=== PATIENT | female | born 1930 | race Caucasian/White ===

== ENCOUNTER 2018-12-04 09:24 | Inpatient (IN) ==
--- NOTE | 2018-12-04 10:46 | PROVIDER DOCUMENTATION ---
HPI-General Adult - General Chief Complaint: Return/Recheck Stated Complaint: WEAKNESS Time Seen by Provider: 12/04/18 10:20 Source: patient Allergies/Adverse Reactions: Patient Allergies Allergy/AdvReac Type Severity Reaction Status Date / Time codeine Allergy RASH Verified 11/30/18 20:19 Penicillins Allergy RASH Verified 11/30/18 20:19 Sulfa (Sulfonamide AdvReac Unknown Verified 11/30/18 20:19 Antibiotics) Home Medications: Home Medication List Medication Instructions Recorded Confirmed Last Taken Type Acetaminophen [Tylenol] 325 mg PO PRN PRN 12/02/17 02/17/18 Unknown History Aspirin 81 mg PO DAILY 12/02/17 04/08/18 04/08/18 History Cholecalciferol (Vitamin D3) 2,000 unit PO DAILY 12/02/17 04/08/18 04/08/18 History [Vitamin D3] Donepezil HCl [Aricept] 10 mg PO DAILY 12/02/17 02/17/18 Unknown History Insulin Glargine [Lantus] 25 unit SQ AC + HS 12/02/17 04/08/18 04/08/18 History Lactobacillus Combo No.11 1 each PO DAILY 12/02/17 04/08/18 04/08/18 History [Probiotic] Levothyroxine Sodium [Tirosint] 112 mcg PO .0500 DAILY 12/02/17 04/08/18 04/08/18 History Linaclotide [Linzess] 72 mcg PO DAILY 12/02/17 04/08/18 04/08/18 History Lisinopril 10 mg PO DAILY 12/02/17 04/08/18 04/08/18 History Pantoprazole Sodium 40 mg PO DAILY@0600 12/02/17 04/08/18 04/08/18 History ATORVAstatin [Lipitor] 10 mg PO HS 02/17/18 04/08/18 04/08/18 History Ferrous Sulfate 325 mg PO DAILY 02/17/18 04/08/18 04/08/18 History Lorazepam 0.5 mg PO . DIRECTED TID 02/17/18 04/08/18 04/08/18 History Ropinirole HCl 1 mg PO HS 02/17/18 04/08/18 04/08/18 History Lactulose [Generlac] 10 gm PO BID 09/04/08/18 04/08/18 History Amitriptyline [Elavil] 10 mg PO HS #15 tab 02/19/18 Unknown Rx Promethazine [Phenergan Liquid] 12.5 mg PO Q6H PRN PRN #1 bottle 03/15/18 04/08/18 04/08/18 Rx Clonidine HCl 0.1 mg PO TID PRN #60 tablet 03/23/18 04/08/18 04/08/18 Rx Estrogen Vag Cream [Premarin Vag 1 applicatn ORDERED EVERY OTHER 04/08/18 04/08/18 Unknown History Cream] DAY Polyethylene Glycol [Polyox 17 gm PO BID #60 dose 04/12/18 Unknown Rx [id number]] Levofloxacin [Levaquin] 500 mg PO DAILY #7 tab 12/01/18 Unknown Rx Promethazine [Phenergan] 25 mg PO Q6H PRN PRN #14 tab 12/01/18 Unknown Rx - History of Present Illness -Gen Adult Nature of Presenting Problems: Pt. is 88 yof that presents with c/o weakness, swelling in her feet and reports she was seen recently and treated for a UTI. Pt. reports some SOB but denies any CP. Pt. reports she went to her PCP and was told to come to the ED. She denies any other complaint. Location of Pain/Injury: reports: generalized. denies: none, head, face, mouth, neck, chest, upper extremity, hand(s), abdomen, back, pelvis, genitalia, lower extremity, feet, upper body, lower body, other Pain Radiation: reports: no radiation. denies: arm(s), back, buttocks, chest, epigastric, feet, groin, jaw, flank (L), legs (lower), LLQ, LUQ, neck, perium bilical, flank (R), RLQ, RUQ, shoulder(s), scapula, scrotal, sternal notch, suprapubic, legs (upper), urethral, vaginal, other Quality of Pain: reports: aching. denies: burning, cramping, pressure, sharp, tightness Severity: reports: moderate. denies: mild, severe Onset/Duration: reports: gradual, 3 days ago Timing: reports: still present. denies: improving, gone now, constant, getting worse Context/Activities at Onset: reports: none. denies: light activity, moderate activity, vigorous activity, recent emotional stress, recent physical stress, recent trauma history, possible bad food, cold exposure, eating, out of country travel, rest, sleep, sexual activity, other Modifying Factors: improves with: nothing Associated Symptoms: reports: malaise, shortness of breath, weakness, other (edema). denies: denies symptoms, anxiety, arm pain, back/neck pain, chest joann n, constipation, cough, diaphoresis, diarrhea, dizziness, EENT symptoms, fatigue, fever/chills, genitourinary problems, headaches, heartburn, joint pain, loss of appetite, muscle aches, sinus congestion/drainage, nausea, rash, seizure, sensory/motor loss, pain with inspiration, swelling/mass in abdomen, syncope, vomiting, trouble walking Similar Symptoms Previously?: Yes Recently seen or treated by another doctor?: Yes Review of Systems - Adult - REVIEW OF SYSTEMS - ADULT Constitutional: reports: no symptoms reported Eyes: reports: no symptoms reported Ears, Nose, Mouth & Throat: reports: no symptoms reported Cardiovascular: reports: see HPI, edema. denies: orthopnea, poor circulation, syncope Respiratory: reports: see HPI, shortness of breath. denies: cough, dyspnea on exertion, pleurisy, wheezing Gastrointestinal: reports: no symptoms reported Genitourinary: reports: see HPI, dysuria. denies: hesitency, urinary retention, urgency Musculoskeletal: reports: no symptoms reported Integumentary: reports: no symptoms reported Neurological: reports: no symptoms reported Psychiatric: reports: no symptoms reported Past History - Adult - PAST MEDICAL HISTORY-ADULT Review of Records: reports: Old Records Reviewed, Nursing Assessment Review, Medications Reviewed, Social history reviewed & non-contributory. Major Childhood Illnesses: reports: denies history Cardiovascular: reports: CHF, HTN Respiratory: reports: asthma, COPD Gastrointestinal: reports: GERD Obstetrical/Gynecological: reports: denies history Genitourinary: reports: kidney disease Musculoskeletal: reports: denies history Neurological: reports: dementia, TIA Psychiatric: reports: anxiety Endocrine/Immune: reports: Diabetes, thyroid disorder Other Conditions: reports: denies history - PRIOR SURGERIES/PROCEDURES Surgical/Procedure History: reports: hysterectomy, tonsillectomy, other (thyroidectomy, eye sx) - IMMUNIZATION STATUS Childhood Immunizations: See Nurse Assessment Flu Vaccine: See Nurse Assessment - FAMILY HISTORY Family History: reviewed, not pertinent - SOCIAL HISTORY Smoking: denies Physical Exam-General - PHYSICAL EXAM-ADULT Initial Vital Signs Reviewed: Yes - CONSTITUTIONAL General Appearance: alert, no apparent distress, obese. negative: anxious, obtunded, combative - EYES Eyes: PERRL/EOMI, pink conjunctivae. negative: conjuctival exudate, scleral icterus, subconjunctival hemorrhage - HEAD, EARS, NOSE, MOUTH & THROAT HENMT: normocephalic/atraumatic, moist mucous membranes. negative: angioedema, frontal tenderness, maxillary tenderness - NECK Neck: non-tender, full range of motion, supple, normal inspection. negative: lymphadenopathy, trachial deviation, thyromegaly - RESPIRATORY Respiratory: lungs clear, normal breath sounds - CARDIOVASCULAR Cardiovascular: normal peripheral pulses, regular rate, rhythm - GASTROINTESTINAL (ABDOMEN) Abdominal Exam: normal bowel sounds, non tender, soft - LYMPHATIC Lymphatic: no adenopathy. negative: axilla node tender, cervical node tenderness - MUSCULOSKELETAL Back Exam: normal inspection, no CVA tenderness, no vertebral tenderness Extremity: swelling. negative: deformity, erythema, inflammation, tenderness Peripheral Pulses: radial (R): 2+, radial (L): 2+ - SKIN Integumentary: normal color, normal turgor, warm/dry - NEUROLOGIC Neurologic: grossly normal, no motor/sensory deficits - PSYCHIATRIC Psych/Mental Status: normal mood/affect, normal thought content, normal thought process, oriented x 3. negative: anxious, paranoid, tearful Progress - PLAN OF CARE/RESULTS Progress/Plan/Lab Results: Vital Signs - 8 hr 12/04/18 09:31 12/04/18 09:32 12/04/18 09:36 Temperature 97.8 F Pulse Rate 80 82 Respiratory Rate 18 18 Blood Pressure 169/79 168/76 O2 Sat by Pulse Oximetry 97 97 98 12/04/18 09:40 Temperature Pulse Rate Respiratory Rate Blood Pressure O2 Sat by Pulse Oximetry 97 Orders Category Date Time Status Core Temperature ORDERED Care 12/04/18 10:42 Ordered Saline Loc NOW Care 12/04/18 10:40 Ordered CHEST-PORTABLE [RAD] Stat Exams 12/04/18 10:41 Ordered BLOOD CULTURE [BLDCUL] Stat Lab 12/04/18 10:42 Uncollected CBC WITH ELECTRONIC DIFF [HEME] Stat Lab 12/04/18 10:40 Uncollected CK PROFILE [SP CHEM] Stat Lab 12/04/18 10:40 Uncollected COMPREHENSIVE METABOLIC PANEL [CHEM] Stat Lab 12/04/18 10:40 Uncollected LACTATE, PLASMA [CHEM] Stat Lab 12/04/18 10:42 Uncollected PRO B-NATRIURETIC PEPTIDE Stat Lab 12/04/18 10:41 Ordered TROPONIN T Stat Lab 12/04/18 10:41 Uncollected TSH Stat Lab 12/04/18 10:41 Uncollected URINALYSIS W/POSS RFLX CULT [URINALYSIS] Stat Lab 12/04/18 10:41 Uncollected EKG [EKG] Stat Ther 12/04/18 10:40 Ordered Result Diagrams: 12/04/18 10:55 12/04/18 10:55 - XRAY 1 XRAY Study: Chest [facility] - [address], [place] [address] [facility] - [address] [place] [address] Department of Imaging Patient: MONIKA HARRIS Date: 12/04/18MR#: [id number] : 1930ADM [id number] Age/Sex: 88/FRoom/Bed: Loc: ED Ordering Physician: Rudy Dickinson Family Physician: Elliot Morin MD Reason for Procedure: edema Signed EXAM: CHEST-PORTABLE HISTORY: edema TECHNIQUE: Chest single view COMPARISON: 11/30/2018 FINDINGS: The lungs are well expanded. The heart is not enlarged. The vessels are mildly distended. There are no infiltrates. No effusion identified. IMPRESSION: Mild vascular distention Electronically signed by Chip Truong 12/04/2018 11:05 AM 12/04/18 1105 Interpreting Physician: Chip Truong MD Dictated Date/Time: 12/04/18 1104 cc: Rudy Dickinson; Elliot Morin MD) XRAY Interpretation: See note - CONSULTS/PCP/HOSPITALIST Notification #1 *Consult/PCP/Hospitalist*: Chanelle for Dr. Coyne Time Discussed: 11:58 Reason/Comments: Admission Consult Disposition: Will see in ED, Admit Departure - Departure Date of Disposition Decision: 12/04/18 Time of Disposition Decision: 11:58 DIAGNOSIS: Nausea, Weakness, Hypoglycemia, Elevated brain natriuretic peptide (BNP) level Edema Qualifiers: Edema type: unspecified Qualified Code(s): R60.9 - Edema, unspecified Disposition: ADMITTED INPATIENT 09 Certified Medical Emergency: Emergent Condition: Stable Referrals and Follow-Ups: Elliot Morin MD [Primary Care Provider] - - Critical Care Note This patient required my direct & personal management of CC.: No Attestation - Physician/ DAYANA Attestation Patient care was provided by Advanced Practice Provider:: Yes Advanced Practice Provider:: Rudy Dickinson Advanced Practice Provider documentation review:: The Mid-level provider documentation, treatment plan and medical decision making was reviewed by the physician who agrees with all treatment and medical decision making by the P. The physician spent face to face time with patient:: No Advanced Practice Provider documentation review:: Supervising physician onsite and consulted in the evaluation and care of this patient. The physician did not have a face to face encounter with the patient.
[2018-12-04 11:05] LABS: URINE SOURCE CLEAN CATCH
--- NOTE | 2018-12-04 11:07 | Diag Imaging Result Doc PS360 ---
EXAM: CHEST-PORTABLE HISTORY: edema TECHNIQUE: Chest single view COMPARISON: 11/30/2018 FINDINGS: The lungs are well expanded. The heart is not enlarged. The vessels are mildly distended. There are no infiltrates. No effusion identified. IMPRESSION: Mild vascular distention Electronically signed by Chip Truong 12/04/2018 11:05 AM
[2018-12-04 11:10] LABS: BASO# 0.04 X1000 (0.0-0.2); BASO% 0.5 % (0.0-0.8); EOS# 0.28 X1000 (0.0-0.7); EOS% 3.5 % (0.0-10.0); HEMATOCRIT 32.7 % (37.0-47.0); IMM GRAN# 0.03 X1000 (0.0-0.04); IMM GRAN% 0.4 % (0.0-0.5); LYMPH# 3.39 X1000 (1.2-3.4); LYMPH% 42.1 % (20.5-51.1); MCH 29.3 PG (27-31); MCHC 33.6 g/dL (33-37); MONO# 0.78 X1000 (0.11-0.59); MONO% 9.7 % (1.7-9.3); MPV 8.7 FL (7.4-10.4); NEUT# 3.54 X1000 (1.4-6.5); NEUT% 43.8 % (42.2-75.2); PLT 270 X1000 (130-400); RBC 3.76 XMIL (4.2-5.4); RDW 14.3 % (11.5-14.5); WBC 8.06 X1000 (4.8-10.8)
[2018-12-04 11:15] LABS: BILIRUBIN URINE NEGATIVE (NEGATIVE); BLOOD URINE NEGATIVE (NEGATIVE); COLOR STRAW; GLUCOSE URINE NEGATIVE (NEGATIVE); KETONE URINE NEGATIVE (NEGATIVE); LEUKOCYTES URINE NEGATIVE (NEGATIVE); NITRITE URINE NEGATIVE (NEGATIVE); PH URINE 5.5; PROTEIN URINE 50 mg/dL (NEGATIVE); SP GRAVITY URINE 1.005; TURBIDITY URINE CLEAR (CLEAR); UROBILINOGEN URINE NORMAL (NORMAL)
[2018-12-04 11:17] LABS: UR EPITHELIAL CELLS <10 /HPF (<10); URINE BACTERIA NEGATIVE /HPF; URINE RBC <10 /HPF (<10); URINE WBC <10 /HPF (<10)
[2018-12-04 11:38] LABS: ALB/GLOB RATIO 1.2; ALBUMIN 3.5 g/dL (3.5-5.0); CALCIUM 8.9 mg/dL (8.8-10.2); CREATININE 1.5 mg/dL (0.5-0.9); POTASSIUM 4.4 mmol/L (3.5-5.1); TOTAL BILIRUBIN 0.26 mg/dL (0.20-1.00); TOTAL PROTEIN 6.4 g/dL (6.3-8.3)
--- NOTE | 2018-12-04 11:53 | EKG Report ---
Test Performed on : 12/04/2018 11:05:37 AM Test Reason : sob Blood Pressure : / mmHG Vent. Rate : 080 BPM Atrial Rate : 080 BPM P-R Int : 138 ms QRS Dur : 078 ms QT Int : 396 ms P-R-T Axes : 047 -09 036 degrees QTc Int : 456 ms Normal sinus rhythm. Normal ECG When compared with ECG of 30-NOV-2018 22:50, (Unconfirmed) premature atrial complexes. are no longer present Unconfirmed Result
[2018-12-04] MEDS ORDERED: D50W SYRINGE IV ONE (11:55)
--- NOTE | 2018-12-04 13:09 | ED EKG INTERP ---
This chart was entered by Kendy Galvez Scribe, acting as scribe for Sina Ryan MD. EKG Interpretation - EKG Time of EKG reading by physician:: 11:05 EKG Read and Signed by:: Sina Ryan EKG Interpretation (*Must complete 3 of following elements*): Normal Rate: 80 Rhythm: normal sinus rhythm Hubbard: normal QRS: normal AL Interval: normal ST Wave: normal Comments: normal ECG Attestation - Physician/ DAYANA Attestation Patient care was provided by Advanced Practice Provider:: Yes Advanced Practice Provider:: Rudy Dickinson Advanced Practice Provider documentation review:: The Mid-level provider documentation, treatment plan and medical decision making was reviewed by the physician who agrees with all treatment and medical decision making by the MLP. The physician spent face to face time with patient:: No Advanced Practice Provider documentation review:: Supervising physician onsite and consulted in the evaluation and care of this patient. The physician did not have a face to face encounter with the patient. This chart was documented by the indicated scribe, (Kendy Galvez Scribe) and accurately reflects the services I performed and decisions made by Connor nance Donald C., MD, as attested by the provider's signature.
[2018-12-04 15:47] LABS: BASO# 0.03 X1000 (0.0-0.2); BASO% 0.4 % (0.0-0.8); EOS# 0.14 X1000 (0.0-0.7); HEMATOCRIT 31.3 % (37.0-47.0); HEMOGLOBIN 10.4 g/dL (12.0-16.0); IMM GRAN# 0.04 X1000 (0.0-0.04); IMM GRAN% 0.6 % (0.0-0.5); LYMPH# 2.08 X1000 (1.2-3.4); LYMPH% 30.2 % (20.5-51.1); MCH 29.1 PG (27-31); MCHC 33.2 g/dL (33-37); MCV 87.7 FL (81-99); MONO# 0.72 X1000 (0.11-0.59); MONO% 10.4 % (1.7-9.3); MPV 8.5 FL (7.4-10.4); NEUT# 3.88 X1000 (1.4-6.5); NEUT% 56.4 % (42.2-75.2); PLT 269 X1000 (130-400); RBC 3.57 XMIL (4.2-5.4); RDW 14.5 % (11.5-14.5); WBC 6.89 X1000 (4.8-10.8)
--- NOTE | 2018-12-04 16:05 | CARDIOLOGY CONSULTATION ---
DATE: 12/04/2018 Ms. Linda Resendiz is an 88-year-old lady, who comes with complaints of weakness, pedal edema. She is a patient of Dr. Morin and has got multiple medical problems. Of late, she has noticed increasing pedal edema for the last 3 to 4 months. She was on Norvasc and that was discontinued, given her pedal edema, and started on medications, hydralazine. She is also on clonidine. She complains of having had an episode of lower blood pressure at 103, and at that blood pressure, she did not feel well. However, this morning, blood pressure was in the 200s. She came to the emergency room. Was admitted. She denies any chest pain. She has shortness of breath. No orthopnea or paroxysmal nocturnal dyspnea. She has grade 2 dyspnea on exertion. However, exercise capacity is limited, and her edema has worsened. She has noticed some blisters in her lower extremities as well. There is no history of palpitations. Her home medications include aspirin 81 mg a day, Protonix mg a day, insulin as directed, levothyroxine 112 mcg per day, atorvastatin 10, ferrous sulfate 325, ropinirole, clonidine 0.1 mg p.o. t.i.d. p.r.n., levofloxacin 500, clonazepam p.r.n., hydralazine 50 t.i.d., melatonin, benzonatate, and losartan 100 mg a day. ALLERGIES: She is allergic to codeine, penicillin, sulfonamides. PHYSICAL EXAMINATION: On examination, blood pressure was 153/72 currently 179/76. Jugular venous pressure was normal. First and second heart sounds were heard. There was ejection systolic murmur.Respiratory System: Bibasilar inspiratory crepitations. Abdomen was soft, nontender. There was no guarding or rigidity. Bowel sounds were heard. Central nervous system: Alert and oriented, was moving all 4 extremities. Examination of extremities revealed pitting pedal edema to her shins bilaterally, and there were blisters also noted on the left leg. 2+ pitting pedal edema. DIAGNOSTIC STUDIES: Sodium 134, potassium 4.4, BUN 8, creatinine 1.5. Troponin negative. Chest x-ray: Vascular distention noted. Her CBC: WBC 8, hemoglobin 11, hematocrit 32, platelet count of 270. ASSESSMENT AND PLAN: Ms Linda Resendiz is an 88-year-old lady who has history of hypertension, diabetes, hypothyroidism, who has had pedal edema off and on for the last 3 to 4 months. It was thought to be secondary to Norvasc which she was taking that was discontinued a couple of weeks back. She is on hydralazine 50 mg 3 times a day. In addition, she has also clonidine on a p.r.n. basis. She has noted fluctuating blood pressures. In addition, she is on Cozaar. From a cardiac standpoint, first set of cardiac enzymes are negative. Her electrocardiogram revealed normal sinus rhythm. There were no ST-T changes to suggest ischemia. Left ventricular hypertrophy borderline noted. In addition she has ejection systolic murmur. 1. We will get an echocardiogram to assess for and rule out aortic stenosis and get an ejection fraction as well. 2. We will get carotid Dopplers. She has had episodes of dizziness as well. 3. As far as hypertensive medications are concerned, her Norvasc was recently discontinued. She is on Cozaar and hydralazine. We recommend continuing the same medications. 4. As far as pedal edema is concerned, she has bilateral pitting pedal edema. She has been started on Lasix. We would recommend continuing with the Lasix and follow her BMP. Further recommendations pending her echocardiogram. Thank for the consult. We will follow hospital course. cc: Ayan Smith MD
[2018-12-04] MEDS: LASIX IV SCH (16:06)
[2018-12-04] MEDS: HUMALOG SUBQ SCH ×2 (16:06→21:52)
[2018-12-04] MEDS: APRESOLINE PO SCH ×2 (16:07→21:52)
[2018-12-04 16:11] LABS: ALB/GLOB RATIO 1.2; ALBUMIN 3.1 g/dL (3.5-5.0); CALCIUM 8.7 mg/dL (8.8-10.2); CREATININE 1.3 mg/dL (0.5-0.9); MAGNESIUM 1.6 mg/dL (1.5-2.7); POTASSIUM 4.5 mmol/L (3.5-5.1); TOTAL BILIRUBIN 0.23 mg/dL (0.20-1.00); TOTAL PROTEIN 5.6 g/dL (6.3-8.3)
[2018-12-04] MEDS ORDERED: MAGNESIUM SULFATE 2 GM/S.W.I. 2 GM/50 ML IVPB IV ONE (16:16)
[2018-12-04 16:34] LABS: URINE SOURCE CATH
[2018-12-04 16:40] LABS: BILIRUBIN URINE NEGATIVE (NEGATIVE); BLOOD URINE NEGATIVE (NEGATIVE); COLOR STRAW; GLUCOSE URINE NEGATIVE (NEGATIVE); KETONE URINE NEGATIVE (NEGATIVE); LEUKOCYTES URINE TRACE (NEGATIVE); NITRITE URINE NEGATIVE (NEGATIVE); PROTEIN URINE 100 mg/dL (NEGATIVE); SP GRAVITY URINE 1.007; TURBIDITY URINE CLEAR (CLEAR); UROBILINOGEN URINE NORMAL (NORMAL)
[2018-12-04 16:42] LABS: UR EPITHELIAL CELLS <10 /HPF (<10); URINE BACTERIA NEGATIVE /HPF; URINE RBC <10 /HPF (<10); URINE WBC <10 /HPF (<10)
[2018-12-04] MEDS: LIPITOR PO SCH (21:51)
[2018-12-04] MEDS: KLONOPIN PO PRN (21:52)
[2018-12-04] MEDS: REQUIP PO SCH (21:52)
[2018-12-04] MEDS: MELATONIN PO SCH (21:52)
[2018-12-05] MEDS: LASIX IV SCH (02:48)
[2018-12-05] MEDS: PHENERGAN PO PRN (03:44)
--- NOTE | 2018-12-05 04:35 | HISTORY AND PHYSICAL ---
CHIEF COMPLAINT: Weakness, lower extremity edema. HISTORY OF PRESENT ILLNESS: This is an 88-year-old female with a prior history of hypertension, diabetes mellitus, gastroesophageal reflux disease, hypothyroid, chronic kidney disease. She presents to the emergency room complaining of generalized weakness and lower extremity edema over the past week. She states that she has had difficulty with pedal edema over the last 3 to 4 months which has been followed by her primary care physician, Dr. Morin. She was initially on Norvasc when this started, this was discontinued. Medications have been changed during these months. She did state that prior to the last few days that the lower extremity edema had been less and that it would disappear with elevation and recur after standing for long periods of time although during this last week it has persisted and she even has had some her fingers have started to swell. This morning she had systolic pressures in the 200s prompting her visit to the emergency room. She denied any chest pain or palpitations during this. She denied any orthopnea or PND. She did state that over the last 24 hours that she has had some blisters on her lower extremities and pain on standing. She stated she felt like her skin was stretching and pain on standing. She did state that "I feel like my skin is stretching." PAST MEDICAL HISTORY: 1. Asthma. 2. Diabetes mellitus. 3. Gastroesophageal reflux disease. 4. Hyperlipidemia. 5. Hypertension. 6. Chronic kidney disease. 7. Hypothyroidism 8. Transient ischemic attack. PAST SURGICAL HISTORY: Appendectomy, cataract removal, hysterectomy, tonsillectomy, goiter, corneal transplant. SOCIAL HISTORY: She denies alcohol, tobacco, or illicit drug use. ALLERGIES: Codeine and penicillin which cause a rash and sulfa with unknown reaction. HOME MEDICATIONS: A list will be obtained by the nursing staff and once verified we will review and restart as appropriate. REVIEW OF SYSTEMS: Discussed with patient with pertinent positives stated in HPI. She denied any syncope or dizziness, any palpitations, productive cough, any fevers or chills, any night sweats, recent weight loss or weight gain, nausea, vomiting, diarrhea, constipation, black or bloody vomitus or stools, any hematuria, dysuria, frequency, urgency. PHYSICAL EXAMINATION: GENERAL: This is an 88-year-old female who is lying on the stretcher in the emergency room in no distress. VITAL SIGNS: Blood pressure is 168/76 with a heart rate of 82, respirations are 18, temperature is 97.8 degrees with room air saturations 97%-99%. HEENT: Head is normocephalic, atraumatic. Mucous membranes are moist. NECK: Supple with trachea midline. She has no JVD. CARDIOVASCULAR: Regular rate and rhythm. S1, S2 appreciated. She does have a 1-2/6 systolic murmur. She has bilateral 2+ pitting edema that is just to about her knees. Calves are nontender bilateral. Peripheral pulses palpable x4 extremities. She does have some blisters noted on her inner left leg. PULMONARY: Breath sounds have noted bibasilar crackles. Chest rises and falls symmetrically with respiration. Chest wall is nontender to palpation. GASTROINTESTINAL: Abdomen is soft, nontender, nondistended with bowel sounds in all 4 quadrants. GENITOURINARY: She has no CVA or suprapubic tenderness. NEUROLOGIC: Alert and oriented times 3. SKIN: Warm and dry. LABORATORIES: WBC is 6.8 with hemoglobin 11, hematocrit 32.7, platelets of 27,000. Sodium is 134, potassium 4.4, BUN 8, creatinine 1.5 with a glucose of 64. ProBNP is 1602. Troponin was negative. TSH is 14. Urinalysis is essentially negative. Negative acetone. Urine cultures and blood cultures are pending. Chest x-ray reveals mild vascular distention. ASSESSMENT AND PLAN: 1. Lower extremity edema. Will order an echocardiogram and start diuretic therapy. 2. Hypothyroidism. Will restart synthroid therapy. 3. Diabetes mellitus type 2. Will start the patient on sliding scale insulin and a diabetic diet. 4. Hypertension. Restart home antihypertensive regimen. 5. Chronic constipation. Resume home laxative regimen. 6. Morbid obesity. Aware. 7. Acute kidney injury on chronic kidney disease. Will check urine studies and monitor the urine output closely. 8. Deconditioning. Will consult OT and PT. Dictated by JUAN Beckford for Yue Payne MD cc: JUAN Bekcford MD I performed a face to face encounter on the patient. I reviewed all labs and imaging on the patient. I agree with the H&P as dictated. [facility]
[2018-12-05 06:02] LABS: HEMATOCRIT 29.8 % (37.0-47.0); HEMOGLOBIN 9.8 g/dL (12.0-16.0); MCH 28.6 PG (27-31); MCHC 32.9 g/dL (33-37); MCV 86.9 FL (81-99); MPV 8.9 FL (7.4-10.4); RBC 3.43 XMIL (4.2-5.4); RDW 14.1 % (11.5-14.5); WBC 6.41 X1000 (4.8-10.8)
[2018-12-05 06:23] LABS: CALCIUM 8.9 mg/dL (8.8-10.2); CREATININE 1.7 mg/dL (0.5-0.9)
[2018-12-05] MEDS: PROTONIX PO SCH (06:32)
[2018-12-05] MEDS: SYNTHROID PO SCH (06:33)
[2018-12-05] MEDS: LOVENOX SUBQ SCH (06:33)
[2018-12-05] MEDS: HUMALOG SUBQ SCH ×4 (06:34→21:23)
[2018-12-05] MEDS ORDERED: LINZESS PO ONE (09:08)
--- NOTE | 2018-12-05 09:46 | ECHO REPORT ---
ORDER DATE: 12/04/2018 INTERPRETING PHYSICIAN: Phu Allan MD. REQUESTING PHYSICIAN: Yue Payne MD. CLINICAL INDICATIONS: Edema, swelling, dyspnea, CHF suspected. M-MODE MEASUREMENTS: Left ventricle end diastole: 4.6 cm. Left ventricle end systole: 2.9 cm. Posterior wall: 0.9 cm. Interventricular septum: 0.8 cm. Left atrium: 3.8 cm. Aortic diameter: 2.9 cm. SUMMARY OF 2-DIMENSIONAL IMAGIN. The left ventricular function is normal. Ejection fraction is estimated at 65% to 70%. There is no wall motion abnormality noted. 2. The aortic valve shows some sclerosis of the cusps without stenosis. No regurgitation. 3. Mitral annulus shows moderate calcification. Color flow mapping of mitral valve indicates mild degree of regurgitation. 4. The pulse wave Doppler of mitral inflow is normal. 6. Tissue Doppler of septal and lateral mitral annulus averages 4 cm. 7. There is impaired left ventricular relaxation. 8. The pulmonic valve looks normal. Color flow mapping unremarkable. 9. The tricuspid valve shows mild degree of regurgitation. 10.Pulmonary systolic pressure is somewhat difficult to assess because the jet of regurgitation is somewhat faint. Pulmonary pressure may be elevated at 38 mmHg. 11.There is no pericardial effusion, no mass, and no thrombus. 12.Right-sided chambers are distended. Clinical correlation is recommended. cc: MD Joselin Woodward CRNP
[2018-12-05] MEDS: FERROUS SULFATE PO SCH (11:20)
[2018-12-05] MEDS: ASPIRIN PO SCH (11:20)
[2018-12-05] MEDS: VITAMIN D PO SCH (11:20)
[2018-12-05] MEDS: APRESOLINE PO SCH ×3 (11:20→21:33)
[2018-12-05] MEDS: KLONOPIN PO PRN (11:20)
[2018-12-05] MEDS: ZYRTEC PO SCH (11:21)
[2018-12-05] MEDS: LACTULOSE PO SCH ×2 (12:20→21:24)
[2018-12-05] MEDS: MIRALAX PO ONE (12:20)
--- NOTE | 2018-12-05 20:34 | PROGRESS NOTE ---
DATE: 12/05/2018 SUBJECTIVE: The patient states that she feels a lot better. She feels like her legs are less swollen today. OBJECTIVE: Vital Signs: Temperature 97.6 degrees, blood pressure 154/58, heart rate 77, respirations 16, O2 saturation 97% on room air. General: This is an elderly female lying in bed in no acute distress. Heart: S1, S2 normal. Lungs: Clear to auscultation bilaterally. Abdomen: Positive bowel sounds. Soft, nontender, nondistended. Extremities: 2+ edema. Neurologic: The patient is alert and oriented x4. LABORATORY DATA: White blood cell count 6.4, hemoglobin 9.8, hematocrit 29, platelets 260,000. Sodium 135, potassium 4, chloride 103, CO2 22, BUN 14, creatinine 1.7, glucose 119. ASSESSMENT AND PLAN: 1. Acute diastolic congestive heart failure exacerbation. Continue with diuretic therapy and the current cardiac medications. 2. Hypothyroidism. Continue on Synthroid. 3. Chronic constipation. Continue on the current laxative regimen. 4. Hypertension. Continue on the current antihypertensive regimen. 5. Restless legs syndrome. Continue on Requip. 6. Deep vein thrombosis prophylaxis. Continue on Lovenox. 7. Will consult physical therapy. cc: Yue Payne MD
[2018-12-05] MEDS: REQUIP PO SCH (21:25)
[2018-12-05] MEDS: LIPITOR PO SCH (21:25)
[2018-12-05] MEDS: MELATONIN PO SCH (21:25)
[2018-12-05] MEDS: MIRALAX PO SCH (21:26)
[2018-12-05] MEDS: TYLENOL PO PRN (22:17)
[2018-12-06] MEDS: TYLENOL PO PRN ×2 (04:33→20:10)
[2018-12-06] MEDS: SYNTHROID PO SCH (04:34)
[2018-12-06] MEDS: LINZESS PO SCH ×4 (05:47→06:25)
[2018-12-06] MEDS: LOVENOX SUBQ SCH (05:48)
[2018-12-06] MEDS: PROTONIX PO SCH (05:48)
[2018-12-06] MEDS: KLONOPIN PO PRN (06:29)
[2018-12-06] MEDS: HUMALOG SUBQ SCH ×4 (06:51→21:33)
--- NOTE | 2018-12-06 07:18 | EKG Report ---
Test Performed on : 12/06/2018 06:50:38 AM Test Reason : Chest Pain Blood Pressure : / mmHG Vent. Rate : 073 BPM Atrial Rate : 073 BPM P-R Int : 152 ms QRS Dur : 082 ms QT Int : 392 ms P-R-T Axes : 050 -03 045 degrees QTc Int : 431 ms Normal sinus rhythm. Normal ECG When compared with ECG of 04-DEC-2018 11:05, (Unconfirmed) No significant change was found Confirmed by Felipe Pemberton MD ([id number]) on 12/08/2018 12:07:18 PM
[2018-12-06 07:40] LABS: HEMATOCRIT 29.2 % (37.0-47.0); HEMOGLOBIN 9.7 g/dL (12.0-16.0); MCH 29.7 PG (27-31); MCHC 33.2 g/dL (33-37); MCV 89.3 FL (81-99); RBC 3.27 XMIL (4.2-5.4); RDW 13.9 % (11.5-14.5); WBC 7.89 X1000 (4.8-10.8)
[2018-12-06 07:50] LABS: CALCIUM 8.4 mg/dL (8.8-10.2); CREATININE 1.8 mg/dL (0.5-0.9); POTASSIUM 4.5 mmol/L (3.5-5.1)
[2018-12-06] MEDS: VITAMIN D PO SCH (08:36)
[2018-12-06] MEDS: LACTULOSE PO SCH ×2 (08:36→20:08)
[2018-12-06] MEDS: ASPIRIN PO SCH (08:36)
[2018-12-06] MEDS: APRESOLINE PO SCH ×3 (08:37→20:10)
[2018-12-06] MEDS: FERROUS SULFATE PO SCH (08:37)
[2018-12-06] MEDS: MIRALAX PO SCH ×2 (08:37→20:08)
[2018-12-06] MEDS: ZYRTEC PO SCH (08:37)
[2018-12-06] MEDS ORDERED: LASIX PO SCH (09:00)
[2018-12-06] MEDS: PHENERGAN PO PRN (11:58)
[2018-12-06] MEDS: REQUIP PO SCH (20:09)
[2018-12-06] MEDS: LIPITOR PO SCH (20:10)
[2018-12-06] MEDS: MELATONIN PO SCH (20:10)
--- NOTE | 2018-12-06 22:17 | PROGRESS NOTE ---
DATE: 12/06/2018 SUBJECTIVE: The patient is resting comfortably. She complains of some neuropathy that is chronic. OBJECTIVE: Vital Signs: Temperature 98.4 degrees, blood pressure 167/70, heart rate 81, respirations 18, O2 saturation 97% on room air. General: This is a chronically ill-appearing elderly female lying in bed in no acute distress. Heart: S1, S2 normal. Lungs: Equal air entry bilaterally. No crackles. No rales. Abdomen: Positive bowel sounds. Soft, obese, nontender, nondistended. Extremities: 1+ edema bilaterally. Neurologic: The patient is alert and oriented x4. LABORATORY DATA: Hemoglobin 9.7, hematocrit 29, platelets 253,000, sodium 133, potassium 4.5, chloride 98, CO2 24, BUN 16, creatinine 1.8, glucose 182. ASSESSMENT AND PLAN: 1. Diastolic dysfunction with peripheral edema. Improved. Given the patient's renal insufficiency. We will hold the Lasix at this time. 2. Morbid obesity. The patient has been counseled about weight loss and proper diet. 3. Diabetes mellitus type 2. Continue on sliding scale insulin. 4. Chronic constipation. Continue on the current laxative regimen. 5. Hypothyroidism. Continue on Synthroid. 6. Restless legs syndrome. Continue on Requip. 7. Acute kidney injury on chronic kidney disease. This is likely diuretic related. The diuretic therapy has been discontinued. 8. Continue with physical therapy. cc: Yue Payne MD MTDPia
[2018-12-07] MEDS: PROTONIX PO SCH (05:10)
[2018-12-07] MEDS: LINZESS PO SCH ×4 (05:10→06:17)
[2018-12-07] MEDS: SYNTHROID PO SCH (05:10)
[2018-12-07] MEDS: LOVENOX SUBQ SCH (05:11)
[2018-12-07] MEDS: TYLENOL PO PRN ×2 (05:13→18:54)
[2018-12-07] MEDS: HUMALOG SUBQ SCH ×3 (06:35→21:35)
[2018-12-07 06:42] LABS: HEMATOCRIT 28.6 % (37.0-47.0); HEMOGLOBIN 9.6 g/dL (12.0-16.0); MCH 29.6 PG (27-31); MCHC 33.6 g/dL (33-37); MCV 88.3 FL (81-99); MPV 8.7 FL (7.4-10.4); RBC 3.24 XMIL (4.2-5.4); RDW 13.7 % (11.5-14.5); WBC 7.47 X1000 (4.8-10.8)
[2018-12-07 07:00] LABS: CALCIUM 8.5 mg/dL (8.8-10.2); CREATININE 1.5 mg/dL (0.5-0.9); POTASSIUM 3.9 mmol/L (3.5-5.1)
[2018-12-07] MEDS ORDERED: LOPRESSOR PO SCH (09:00)
[2018-12-07] MEDS: APRESOLINE PO SCH ×3 (09:05→21:34)
[2018-12-07] MEDS: LACTULOSE PO SCH ×3 (09:05→21:34)
[2018-12-07] MEDS: MIRALAX PO ONE (09:05)
[2018-12-07] MEDS: ZYRTEC PO SCH (09:06)
[2018-12-07] MEDS: VITAMIN D PO SCH (09:06)
[2018-12-07] MEDS: FERROUS SULFATE PO SCH (09:06)
[2018-12-07] MEDS: ASPIRIN PO SCH (09:06)
[2018-12-07] MEDS: MIRALAX PO SCH ×2 (09:07→21:30)
[2018-12-07] MEDS: KLONOPIN PO PRN ×2 (09:09→21:38)
[2018-12-07] MEDS ORDERED: FLEET MINERAL OIL ENEMA PR ONE (09:35)
--- NOTE | 2018-12-07 13:01 | Diag Imaging Result Doc PS360 ---
EXAM: ABDOMEN FLAT/UPRIGHT INDICATION: constipation TECHNIQUE: 4 views COMPARISON: 04/08/2018 FINDINGS: There is gas throughout the colon with only mild distention. There is an average amount of stool in the left colon. There is no obstructive bowel pattern. There is no evidence of large volume free abdominal gas. There is a small amount of gas in the lumen of the stomach. There is multilevel lumbar spondylosis. IMPRESSION: Nonspecific abdomen. Electronically signed by Raymundo Navarro 12/07/2018 12:58 PM
[2018-12-07] MEDS ORDERED: DULCOLAX PR ONE (18:03)
[2018-12-07] MEDS: PHENERGAN PO PRN (21:34)
[2018-12-07] MEDS: LIPITOR PO SCH (21:34)
[2018-12-07] MEDS: MELATONIN PO SCH (21:34)
[2018-12-07] MEDS: REQUIP PO SCH (21:34)
--- NOTE | 2018-12-07 22:00 | PROGRESS NOTE ---
DATE: 12/07/2018 SUBJECTIVE: The patient states that she still has not had a bowel movement since admission. Otherwise, she states that she feels better. OBJECTIVE: Vital signs: Temperature 98 degrees, blood pressure 150/72, heart rate 80, respirations 16, O2 saturation is 99% on room air.General: This is a morbidly obese female lying in bed in no acute distress. Heart: S1, S2 normal. Regular rate and rhythm. Lungs: Clear to auscultation bilaterally. Abdomen: Positive bowel sounds. Soft, nontender, nondistended. Extremities: Trace pedal edema. Neurologic: The patient is alert and oriented x3. LABORATORY DATA: BUN 16, creatinine 1.5, sodium 132. White blood cell count 7.4, hemoglobin 9.6, hematocrit 28, platelets 241,000. ASSESSMENT AND PLAN: 1. Diastolic dysfunction with peripheral edema. Improved. 2. Morbid obesity. The patient has been counseled about weight loss and proper diet. 3. Diabetes mellitus type 2. Continue on sliding scale insulin. 4. Chronic constipation. We will add Dulcolax and lactulose. Continue on Linzess and MiraLAX. 5. Hypothyroidism. Continue on Synthroid. 6. Restless legs syndrome. Continue on Requip. 7. Acute kidney injury on chronic kidney disease. Improved. 8. Continue with physical therapy. cc: Yue Payne MD
--- NOTE | 2018-12-07 22:46 | CARDIOLOGY PROGRESS NOTE ---
DATE: 12/07/2018 SUBJECTIVE: Ms. Resendiz has not had any problems overnight other than constipation. No shortness of breath. No orthopnea. PHYSICAL: Afebrile. Heart rate 76, blood pressure 146/67. General: She is in no acute distress. Cardiovascular: She sounds to be in a regular rate and rhythm. She has no murmurs, she has no S3. She has no lower extremity edema. Chest: Clear bilaterally. She has no increased work of breathing. Abdomen: Soft, nontender. PERTINENT DATA: She had a normal ejection fraction based on echocardiogram. She has had a negative fluid balance. Her sodium is 132, potassium 3.9, BUN 16, creatinine is 1.5 which is down from a peak of 1.7 this hospitalization. ASSESSMENT: Diastolic heart failure. PLAN: At this point, I will titrate her Toprol to 50 mg daily. Would continue with blood pressure medication titrations. Please contact us if we can be of further assistance over the weekend. Dr. Smith will resume following the patient on Sunday. cc: Raf Mchugh MD
[2018-12-08] MEDS: TYLENOL PO PRN ×2 (03:35→23:10)
[2018-12-08] MEDS: PROTONIX PO SCH (05:05)
[2018-12-08] MEDS: LINZESS PO SCH ×2 (05:06→06:21)
[2018-12-08] MEDS: SYNTHROID PO SCH (05:06)
[2018-12-08] MEDS: LOVENOX SUBQ SCH (05:07)
[2018-12-08] MEDS: HUMALOG SUBQ SCH ×4 (06:21→21:50)
[2018-12-08 06:22] LABS: CALCIUM 8.4 mg/dL (8.8-10.2); CREATININE 1.7 mg/dL (0.5-0.9); POTASSIUM 4.4 mmol/L (3.5-5.1)
[2018-12-08] MEDS ORDERED: LASIX PO ONE (08:46)
[2018-12-08] MEDS: TOPROL XL PO SCH (08:50)
[2018-12-08] MEDS: VITAMIN D PO SCH (08:50)
[2018-12-08] MEDS: LACTULOSE PO SCH ×2 (08:50→21:49)
[2018-12-08] MEDS: APRESOLINE PO SCH ×3 (08:51→21:51)
[2018-12-08] MEDS: MIRALAX PO SCH ×2 (08:51→21:49)
[2018-12-08] MEDS: ZYRTEC PO SCH (08:51)
[2018-12-08] MEDS: FERROUS SULFATE PO SCH (08:51)
[2018-12-08] MEDS: ASPIRIN PO SCH (08:51)
[2018-12-08] MEDS: KLONOPIN PO PRN ×2 (08:58→18:23)
[2018-12-08] MEDS: PHENERGAN PO PRN (14:50)
--- NOTE | 2018-12-08 15:45 | PROGRESS NOTE ---
DATE: 12/08/2018 SUBJECTIVE: The patient is resting comfortably. She states that she feels a lot better. She had several bowel movements last night. OBJECTIVE: Vital Signs: Temperature 97.8 degrees, blood pressure 139/58, heart rate 75, respirations 18, O2 saturation is 99% on room air. General: This is a chronically ill-appearing, elderly female lying in bed, in no acute distress. Heart: S1, S2 normal. Regular rate and rhythm. Lungs: Equal air entry bilaterally. No crackles. No rales. Abdomen: Positive bowel sounds. Soft, nontender, nondistended. Extremities: There is 1+ edema bilaterally. Neurologic: The patient is alert and oriented x3. LABS: Sodium 133, potassium 4.4, chloride 98, CO2 26, BUN 17, creatinine 1.7, glucose 136. ASSESSMENT AND PLAN: 1. Diastolic dysfunction. Aware. 2. Morbid obesity. The patient has been counseled about weight loss. 3. Chronic constipation. Continue on the current laxative regimen. 4. Diabetes mellitus type 2. Continue with sliding scale insulin. 5. Hypothyroidism. Continue on Synthroid. 6. Hypertension. Continue on current antihypertensive regimen as directed by the cad drafter. 7. Restless legs syndrome. Continue on Requip. 8. Acute kidney injury on chronic disease. We will continue to monitor closely. 9. Continue with physical therapy. 10. Disposition. The patient will be discharged home with home health once medically stable. cc: Yue Payne MD
[2018-12-08] MEDS: MELATONIN PO SCH (21:49)
[2018-12-08] MEDS: LIPITOR PO SCH (21:49)
[2018-12-08] MEDS: REQUIP PO SCH (21:49)
[2018-12-08] MEDS: DULCOLAX PR SCH (21:50)
[2018-12-09] MEDS: SYNTHROID PO SCH (04:55)
[2018-12-09] MEDS: PROTONIX PO SCH (05:01)
[2018-12-09] MEDS: LOVENOX SUBQ SCH (05:01)
[2018-12-09] MEDS: TYLENOL PO PRN (05:06)
[2018-12-09 06:13] LABS: HEMATOCRIT 30.4 % (37.0-47.0); HEMOGLOBIN 9.9 g/dL (12.0-16.0); MCH 28.8 PG (27-31); MCHC 32.6 g/dL (33-37); MCV 88.4 FL (81-99); MPV 8.8 FL (7.4-10.4); RBC 3.44 XMIL (4.2-5.4); RDW 13.8 % (11.5-14.5); WBC 8.07 X1000 (4.8-10.8)
[2018-12-09 06:33] LABS: CREATININE 1.7 mg/dL (0.5-0.9); POTASSIUM 4.2 mmol/L (3.5-5.1)
[2018-12-09] MEDS: HUMALOG SUBQ SCH ×4 (06:55→21:47)
[2018-12-09] MEDS: LINZESS PO SCH (07:13)
[2018-12-09] MEDS: LACTULOSE PO SCH ×2 (09:11→20:02)
[2018-12-09] MEDS: MIRALAX PO SCH ×2 (09:11→20:02)
[2018-12-09] MEDS: APRESOLINE PO SCH ×3 (09:13→20:03)
[2018-12-09] MEDS: ASPIRIN PO SCH (09:13)
[2018-12-09] MEDS: FERROUS SULFATE PO SCH (09:13)
[2018-12-09] MEDS: ZYRTEC PO SCH (09:13)
[2018-12-09] MEDS: VITAMIN D PO SCH (09:13)
[2018-12-09] MEDS: TOPROL XL PO SCH (09:13)
[2018-12-09] MEDS: KLONOPIN PO PRN (09:43)
--- NOTE | 2018-12-09 16:47 | PROGRESS NOTE ---
DATE: 12/09/2018 SUBJECTIVE: The patient is resting comfortably. No acute events noted overnight. OBJECTIVE: Vital signs: Temperature 97.5 degrees, blood pressure 151/61, heart rate 67, respirations 17, O2 saturation is 98% on room air. General: This is a morbidly obese elderly female, lying in bed in no acute distress. Heart: S1, S2 normal. Regular rate and rhythm. Lungs: Equal air entry bilaterally. No crackles. No rales. Abdomen: Positive bowel sounds. Soft, nontender, nondistended. Extremities: No edema, no cyanosis. Neuro: The patient is alert and oriented x3. LABORATORY DATA: Hemoglobin 9.9, hematocrit 30, platelets 233,000. Sodium 131, potassium 4.2, chloride 94, CO2 of 27, BUN 20, creatinine 1.7, glucose 150. ASSESSMENT AND PLAN: 1. Diastolic dysfunction. Aware. 2. Morbid obesity. The patient has been counseled about weight loss and proper diet. 3. Chronic constipation. Continue on the current laxative regimen. 4. Chronic hyponatremia. We will monitor closely. We will check urine sodium and urine osmolality. 5. Hypothyroidism. Continue on Synthroid. 6. Hypertension. Stable. Continue on the current antihypertensive regimen. 7. Acute kidney injury on chronic kidney disease. Stable. We will avoid nephrotoxic agents. 8. Restless legs syndrome. Continue on Requip. 9. Anxiety disorder. Continue on Klonopin. 10. Continue with physical therapy. DISPOSITION: I had a discussion with the patient's daughter, and she would like the patient placed in inpatient rehabilitation. Press Manager has been consulted for assistance with placement. cc: MD BRADLEY Sharma
[2018-12-09] MEDS: REQUIP PO SCH (20:03)
[2018-12-09] MEDS: LIPITOR PO SCH (20:03)
[2018-12-09] MEDS: KLONOPIN PO SCH (20:03)
[2018-12-09] MEDS: MELATONIN PO SCH (20:03)
[2018-12-09] MEDS: DULCOLAX PR SCH (20:04)
[2018-12-09] MEDS: LANTUS INSULIN SUBQ SCH (21:46)
[2018-12-10] MEDS: LINZESS PO SCH (06:29)
[2018-12-10] MEDS: SYNTHROID PO SCH (06:30)
[2018-12-10] MEDS: PROTONIX PO SCH (06:30)
[2018-12-10] MEDS: HUMALOG SUBQ SCH ×4 (06:30→22:01)
[2018-12-10] MEDS: LOVENOX SUBQ SCH (06:30)
[2018-12-10 06:39] LABS: HEMATOCRIT 28.9 % (37.0-47.0); HEMOGLOBIN 9.6 g/dL (12.0-16.0); MCH 29.8 PG (27-31); MCHC 33.2 g/dL (33-37); MCV 89.8 FL (81-99); MPV 8.9 FL (7.4-10.4); RBC 3.22 XMIL (4.2-5.4); RDW 13.7 % (11.5-14.5); WBC 8.82 X1000 (4.8-10.8)
[2018-12-10 07:13] LABS: CALCIUM 8.6 mg/dL (8.8-10.2); CREATININE 1.5 mg/dL (0.5-0.9); POTASSIUM 4.3 mmol/L (3.5-5.1)
--- NOTE | 2018-12-10 07:47 | Diag Imaging Result Doc PS360 ---
EXAM: CHEST-PORTABLE INDICATION: dyspnea TECHNIQUE: One view COMPARISON: 12/04/2018 FINDINGS: The questionable mild pulmonary venous congestion seen previously is approximately stable. There is a vague opacity at the left lung base behind the heart border. Although questionable, a mild infiltrate is possible. No other new consolidation is identified. Cardiac silhouette is stable. IMPRESSION: Questionable developing opacity at the left lung base. Mild focal pneumonia cannot completely be excluded. Please correlate clinically. Electronically signed by Raymundo Navarro 12/10/2018 7:44 AM
[2018-12-10] MEDS: MIRALAX PO SCH ×2 (08:27→22:00)
[2018-12-10] MEDS: FERROUS SULFATE PO SCH (08:28)
[2018-12-10] MEDS: TOPROL XL PO SCH (08:28)
[2018-12-10] MEDS: APRESOLINE PO SCH ×3 (08:28→22:00)
[2018-12-10] MEDS: VITAMIN D PO SCH (08:29)
[2018-12-10] MEDS: LACTULOSE PO SCH ×2 (08:29→22:00)
[2018-12-10] MEDS: ASPIRIN PO SCH (08:29)
[2018-12-10] MEDS: LANTUS INSULIN SUBQ SCH ×2 (08:29→22:02)
[2018-12-10] MEDS: ZYRTEC PO SCH (08:29)
[2018-12-10] MEDS: KLONOPIN PO SCH ×2 (08:29→22:00)
--- NOTE | 2018-12-10 13:26 | PROGRESS NOTE ---
DATE: 12/10/2018 SUBJECTIVE: Ms. Resendiz came in on 12/07/2018. She is a patient of Dr. Morin. She came in with weakness and lower extremity edema. An 88-year-old with history of hypertension, diabetes, gastroesophageal reflux disease, hypothyroidism, and chronic kidney disease. She presents to the emergency room with generalized weakness and lower extremity edema over the past week, and was again reviewed. PAST MEDICAL HISTORY: 1. History of asthma. 2. Diabetes mellitus type 2. 3. Gastroesophageal reflux. 4. Hyperlipidemia. 5. Hypertension. 6. Chronic kidney disease. 7. Hypothyroidism. 8. Transient ischemic attacks in the past. PAST SURGICAL HISTORY: Status post appendectomy, cataract removal, hysterectomy, tonsillectomy, and goiter. Chest x-ray from this morning questionable developing opacity in the left lung base. Mild focal pneumonia cannot completely be excluded. PHYSICAL EXAMINATION: Vital Signs: On exam today, awake and alert. She was talking about hoping to get to rehab. Remains afebrile. Temperature 98.4 degrees, pulse 71, respirations 16, and blood pressure 148/66. HEENT: Pupils are equal and round. Lungs: Clear in all lung chapman. Cardiovascular: Regular rhythm and rate without murmur or S3. Abdomen: Soft. Skin: Warm and dry. LABORATORY: Urine output looked good 1200 mL. Blood sugars 172, 128, and 174. EKG normal sinus rhythm. Normal EKG. No ST-segment deviation that was from this morning. ASSESSMENT AND PLAN: 1. Diastolic dysfunction. Aware. Seems to be doing better. 2. Morbid obesity. Counseled about her weight loss and proper diet. Low carbohydrate diet. 3. Chronic constipation. She is on current laxative med regimen. 4. Chronic hyponatremia which we have been following closely. I did check urine sodium and osmolality. Her sodium today is 133, potassium 4.3, creatinine is 1.5 that has come down from 1.7. Sodium has increased a little bit which is encouraging. 5. Hypothyroidism. Continue Synthroid. Appears euthyroid. 6. Hypertension. Blood pressures appear well controlled on current antihypertensive medication. 7. Acute kidney injury on chronic kidney disease which appears stable. 8. Restless leg syndrome. 9. Anxiety disorder. 10. Generalized weakness and deconditioning. Continue physical therapy. Social Service is consulted. They are trying to find a rehab place. I think she had one at [facility], but we will see what we can find. REVIEW OF MEDICATIONS: 1. She is on melatonin 5 mg at bedtime. 2. She is on Dulcolax suppository 10 mg at bedtime. 3. Aspirin 81 mg a day. 4. Lipitor 10 mg at bedtime. 5. Zyrtec 10 mg a day. 6. Vitamin D3 2000 units daily. 7. Klonopin 0.5 mg b.i.d. 8. Lovenox 30 mg subcutaneous daily. 9. Iron sulfate 325 mg a day. 10. Apresoline 100 mg p.o. t.i.d. 11. Insulin glargine 25 units subcutaneous b.i.d. 12. Lactulose 30 mL b.i.d. 13. Synthroid 112 mcg daily. 14. Linzess 290 mcg p.o. daily. 15. Metoprolol 50 mg a day. I think that is extended release. 16. MiraLAX 17 g p.o. b.i.d. 17. Protonix 40 mg p.o. daily. 18. Requip 1 mg p.o. at bedtime. cc: Alok Matthew MD
[2018-12-10] MEDS ORDERED: MILK OF MAGNESIA PO PRN (14:36)
--- NOTE | 2018-12-10 14:52 | Carotid Study ---
DATE: 12/04/2018 PROCEDURE: Carotid imaging study. REFERRING PHYSICIAN: Yue Payne MD INTERPRETING PHYSICIAN: Akira Barba MD INDICATIONS: She is here for a followup. OBSERVED DATA RIGHT LEFT Brachial Blood Pressure Carotid Pulse Bruits: Carotid/Sub DIAGRAM OF ULTRASOUND IMAGING R L RIGHT INT EXT INT EXT LEFT Luis (cm/s) Luis (cm/s) Subclavian Subclavian CCA Proximal CCA Proximal CCA Distal CCA Distal Bulb Bulb ICA Proximal ICA Proximal ICA Mid ICA Mid ICA Distal ICA Distal ECA ECA Vertebral Vertebral ICA/CCA Ratio 1.0 ICA/CCA Ratio 0.8 % Stenosis 0%-39% % Stenosis 0%-39% PHYSICIAN INTERPRETATION: No significant plaque disease identified. There is antegrade vertebral flow bilaterally. cc: MD Quynh Montoya PA
[2018-12-10] MEDS: TYLENOL PO PRN ×2 (15:57→22:18)
[2018-12-10] MEDS: PHENERGAN PO PRN (18:03)
[2018-12-10] MEDS: MELATONIN PO SCH (22:00)
[2018-12-10] MEDS: DULCOLAX PR SCH (22:00)
[2018-12-10] MEDS: REQUIP PO SCH (22:02)
[2018-12-10] MEDS: LIPITOR PO SCH (22:02)
[2018-12-11] MEDS: PHENERGAN PO PRN ×3 (01:58→16:45)
[2018-12-11] MEDS: LINZESS PO SCH (05:43)
[2018-12-11] MEDS: SYNTHROID PO SCH (05:43)
[2018-12-11] MEDS: MIRALAX PO SCH ×2 (05:43→21:25)
[2018-12-11] MEDS: LACTULOSE PO SCH ×2 (05:43→21:25)
[2018-12-11] MEDS: PROTONIX PO SCH (05:43)
[2018-12-11] MEDS: LOVENOX SUBQ SCH (05:43)
[2018-12-11] MEDS: HUMALOG SUBQ SCH ×4 (06:48→21:25)
[2018-12-11] MEDS: ASPIRIN PO SCH (08:12)
[2018-12-11] MEDS: KLONOPIN PO SCH ×2 (08:12→21:25)
[2018-12-11] MEDS: ZYRTEC PO SCH (08:12)
[2018-12-11] MEDS: FERROUS SULFATE PO SCH (08:12)
[2018-12-11] MEDS: VITAMIN D PO SCH (08:12)
[2018-12-11] MEDS: APRESOLINE PO SCH ×3 (08:12→21:25)
[2018-12-11] MEDS: TOPROL XL PO SCH (08:13)
[2018-12-11] MEDS: LANTUS INSULIN SUBQ SCH ×2 (08:22→21:25)
[2018-12-11] MEDS: TYLENOL PO PRN ×2 (11:09→16:45)
--- NOTE | 2018-12-11 13:27 | PROGRESS NOTE ---
DATE: 12/11/2018 SUBJECTIVE: Ms. Resendiz is feeling better. She still feels weak and feels tired. OBJECTIVE: Temperature 97.9 degrees. Her pulse is 65, respirations 20, and blood pressure 136/53. Pupils are equal and round. Lungs are clear in all lung chapman. Cardiovascular regular rate without murmur or S3. Abdomen is soft. Skin is warm and dry. LABORATORY: Blood sugar 185, 131 and 246. ASSESSMENT AND PLAN: 1. Diastolic dysfunction. Seems to be well compensated. 2. Morbid obesity. Continue to pursue weight loss and at the same time trying to strengthen her legs and her muscles. 3. Chronic constipation which is improved. She has had a large bowel movement. She does feel better. 4. Chronic hyponatremia, and that is improved. 5. Hypothyroidism appears euthyroid on Synthroid. 6. Hypertension. 7. Acute kidney injury. 8. Restless leg syndrome. 9. Anxiety disorder. 10. Generalized weakness deconditioning. Apparently, she is hoping to go to rehab. I think they have [facility]. Continue her physical therapy so we will hopefully be ready when she has been approved. cc: Alok Matthew MD
--- NOTE | 2018-12-11 18:01 | DISCHARGE SUMMARY ---
ADMISSION DATE: 12/07/2018 DISCHARGE DATE: PRIMARY CARE PHYSICIAN: Dr. Elliot Morin. HISTORY OF PRESENT ILLNESS: She presented with weakness, lower extremity edema on 12/07/2018. An 88-year-old female with a prior history of hypertension, diabetes mellitus type 2, gastroesophageal reflex, hypothyroidism, chronic kidney disease. She presented to the emergency room complaining of general weakness and lower extremity edema over the past week. States she has had difficulty of pedal edema over the last 3 or 4 months. Has been followed by her primary care physician, Dr. Morin, was initially on Norvasc when this was started and then discontinued. Medications had been changed during these months. She did state that prior to the last few days she had lower extremity edema and had been less than it would appear with elevation and seemed to recur after standing for long periods of time. This last week she had some edema she felt in her fingers, systolic pressures within 200s, which concerned her. Denied any chest pain or palpitations. Denied any orthopnea. Over the last 24 hours for admission, she had some blisters on her lower extremities and pain on standing. [place] like her skin was stretching. PAST MEDICAL HISTORY: 1. Asthma. 2. Diabetes mellitus type 2. 3. Gastroesophageal reflux disease. 4. Hyperlipidemia. 5. Hypertension. 6. Chronic kidney disease. 7. Hypothyroidism. 8. Transient ischemic attacks. PAST SURGICAL HISTORY: 1. Status post appendectomy. 2. Status post cataract removal. 3. Status post hysterectomy. 4. Tonsillectomy. 5. Goiter surgery on thyroid I believe. 6. Corneal transplant. ADMISSION DIAGNOSES: 1. Lower extremity edema. 2. Hypothyroidism. 3. Diabetes mellitus. 4. Hypertension. 5. Elevated proBNP. 6. Chronic constipation. 7. Systolic ejection murmur. 8. Dizziness. 9. Hypertension. HOSPITAL COURSE: Admitted, placed on telemetry. Her EKG on 12/06/2018 showed normal sinus rhythm, no ST-segment deviation. No sign of arrhythmia. Abdominal x-ray on 12/07/2018 showed nonspecific abdomen. There was an average amount of stool in the left colon. No obstructive bowel pattern. Cardiology was asked to see. Dr. Raf Mchugh felt she had some diastolic dysfunction, and he put her on some Toprol 50 mg a day and continued with blood pressure medication titration. She did seem to feel better, and she was generally weak and started physical therapy. Chest x-ray repeated on 12/10/2018 did not seem to show much in the way of change. [place] like her blood pressure was well controlled, still complained of weakness. She did seem to have a good amount of anxiety and did talk about feeling like she is having some panic attacks. She felt a little funny when she took the Toprol, but her blood pressure stayed between 127 and 159/50 to 73 with a pulse that was around 70 usually. [place] like she would benefit from going to rehab and so plan to send her to rehab on 12/12/2018. DISCHARGE MEDICATIONS: Aspirin 81 mg a day, Lipitor 10 mg at bedtime, Zyrtec 10 mg daily, vitamin D 2000 units daily, Klonopin 0.5 mg b.i.d., ferrous sulfate 325 mg a day, Apresoline 100 mg t.i.d., insulin glargine 25 units subcutaneous b.i.d., lactulose 30 mL twice a day, Synthroid 112 mcg daily, Linzess 290 mg q. day, milk of magnesia as needed, melatonin 5 mg at bedtime, Toprol-XL 50 mg a day, Protonix 40 mg a day, MiraLAX 17 g twice a day, Requip 1 mg at bedtime. cc: Alok Matthew MD
[2018-12-11] MEDS: REQUIP PO SCH (21:25)
[2018-12-11] MEDS: MELATONIN PO SCH (21:25)
[2018-12-11] MEDS: LIPITOR PO SCH (21:25)
[2018-12-11] MEDS: DULCOLAX PR SCH (21:25)
[2018-12-12] MEDS: TYLENOL PO PRN (01:19)
[2018-12-12] MEDS: PHENERGAN PO PRN ×2 (01:20→09:42)
[2018-12-12] MEDS: LACTULOSE PO SCH (06:02)
[2018-12-12] MEDS: MIRALAX PO SCH (06:03)
[2018-12-12] MEDS: SYNTHROID PO SCH (06:03)
[2018-12-12] MEDS: LINZESS PO SCH (06:03)
[2018-12-12] MEDS: PROTONIX PO SCH (06:03)
[2018-12-12] MEDS: LOVENOX SUBQ SCH (06:03)
[2018-12-12 07:53] VITALS: BP 176/70
[2018-12-12] MEDS: HUMALOG SUBQ SCH (08:26)
[2018-12-12] MEDS: TOPROL XL PO SCH (08:43)
[2018-12-12] MEDS: APRESOLINE PO SCH (08:43)
[2018-12-12] MEDS: KLONOPIN PO SCH (08:44)
[2018-12-12] MEDS: FERROUS SULFATE PO SCH (08:45)
[2018-12-12] MEDS: ASPIRIN PO SCH (08:45)
[2018-12-12] MEDS: LANTUS INSULIN SUBQ SCH (08:45)
[2018-12-12] MEDS: ZYRTEC PO SCH (08:45)
[2018-12-12] MEDS: VITAMIN D PO SCH (08:45)
--- NOTE | 2018-12-12 10:12 | DISCHARGE SUMMARY ---
ADMISSION DATE: 12/07/2018 DISCHARGE DATE: ADDENDUM: Mrs. Linda Resendiz is ready go to [facility], and she had a good night and no new complaints. LABORATORY DATA: Her labs from the reviewed again. Blood sugars look good, and her medication order sheet so she will be discharged today. cc: Alok Matthew MD
== END 2018-12-12 10:44 | DRG 291 ==
LOC: SUPCPDRO → ED 09:24 → 4N 09:24 → SUATTDRO 12-07 09:42 → 4N 12-09 16:21
PROVIDERS: ATTEND Emergency Medicine

== ENCOUNTER 2019-03-19 11:25 | Inpatient (IN) ==
--- NOTE | 2019-03-19 13:13 | Diag Imaging Result Doc PS360 ---
EXAM: CHEST-PORTABLE INDICATION: stroke like symptoms TECHNIQUE: One view COMPARISON: 01/10/2019 FINDINGS: There is stable mild elevation of the right hemidiaphragm. There is stable linear scarring versus chronic atelectasis in the left midlung zone. The lungs are grossly clear, otherwise. There is no discrete pleural fluid collection or pneumothorax. The cardiac silhouette is prominent but stable. Central vasculature is unremarkable. IMPRESSION: Cardiomegaly and stable linear scarring versus chronic atelectasis in the left midlung zone. Electronically signed by Raymundo Navarro 03/19/2019 1:10 PM
--- NOTE | 2019-03-19 13:20 | Diag Imaging Result Doc PS360 ---
CT HEAD W/O CONTRAST - 03/19/2019 INDICATION: stroke like symptoms COMPARISON: 03/09/2018 FINDINGS: The ventricles and sulci are normal in size and contour. No intracranial mass or hemorrhage. There is stable moderate chronic microvascular ischemia of the periventricular and pontine white matter. The skull is intact. The sinuses, mastoids, and middle ears are clear. IMPRESSION: No acute disease or change from prior. This exam was performed using automated exposure control, adjustment of mA or kV according to patient size, and/or use of iterative reconstruction technique Electronically signed by Sebastian Loo 03/19/2019 1:18 PM
[2019-03-19 13:26] LABS: URINE SOURCE CLEAN CATCH
--- NOTE | 2019-03-19 13:30 | EKG Report ---
Test Performed on : 03/19/2019 1:25:36 PM Test Reason : Stroke like symptoms Blood Pressure : / mmHG Vent. Rate : 066 BPM Atrial Rate : 066 BPM P-R Int : 146 ms QRS Dur : 086 ms QT Int : 412 ms P-R-T Axes : 069 -12 052 degrees QTc Int : 431 ms Normal sinus rhythm. Normal ECG When compared with ECG of 10-JAN-2019 22:16, (Unconfirmed) No significant change was found Unconfirmed Result
[2019-03-19 13:32] LABS: BILIRUBIN URINE NEGATIVE (NEGATIVE); BLOOD URINE SMALL (NEGATIVE); COLOR ORANGE; GLUCOSE URINE NEGATIVE (NEGATIVE); KETONE URINE NEGATIVE (NEGATIVE); LEUKOCYTES URINE LARGE (NEGATIVE); NITRITE URINE NEGATIVE (NEGATIVE); PROTEIN URINE 200 mg/dL (NEGATIVE); SP GRAVITY URINE 1.012; TURBIDITY URINE TURBID (CLEAR); UROBILINOGEN URINE NORMAL (NORMAL)
[2019-03-19 13:39] LABS: UR EPITHELIAL CELLS >10 /HPF (<10); URINE BACTERIA 4+ /HPF; URINE WBC TNTC /HPF (<10)
--- NOTE | 2019-03-19 13:42 | PROVIDER DOCUMENTATION ---
HPI-Neurological Disorder - General Chief Complaint: General Adult Stated Complaint: R ARM/LEG IS SLUGGISH Time Seen by Provider: 03/19/19 12:35 Source: patient Allergies/Adverse Reactions: Patient Allergies Allergy/AdvReac Type Severity Reaction Status Date / Time codeine Allergy RASH Verified 03/19/19 13:19 Penicillins Allergy RASH Verified 03/19/19 13:19 Sulfa (Sulfonamide AdvReac Unknown Verified 03/19/19 13:19 Antibiotics) Home Medications: Home Medication List Medication Instructions Recorded Confirmed Last Taken Type Insulin Glargine [Lantus] 25 unit SQ BID 12/02/17 03/20/19 12/20/18 History Lactobacillus Combo No.11 1 each PO DAILY 12/02/17 03/20/19 12/19/18 History [Probiotic] Levothyroxine Sodium [Tirosint] 112 mcg PO DAILY 12/02/17 03/20/19 12/20/18 History Pantoprazole Sodium 40 mg PO DAILY@0600 12/02/17 03/20/19 12/20/18 History ATORVAstatin [Lipitor] 10 mg PO HS 02/17/18 03/20/19 12/19/18 History Ferrous Sulfate 325 mg PO DAILY 02/17/18 03/20/19 12/20/18 History Ropinirole HCl 2 mg PO HS 02/17/18 03/20/19 12/19/18 History Promethazine [Phenergan] 25 mg PO Q6H PRN PRN #14 tab 12/01/18 03/20/19 Unknown Rx Clonazepam [Klonopin] 0.5 mg PO BID PRN 12/04/18 03/20/19 12/20/18 History Linaclotide [Linzess] 290 mcg PO DAILY 12/05/18 03/20/19 12/20/18 History Metoprolol Succinate E.r. [Toprol 50 mg PO DAILY tab 12/11/18 03/20/19 12/20/18 Rx Xl] Polyethylene Glycol 3350 [Miralax] 17 gm PO 0500,2100 powder, packet 12/11/18 03/20/19 12/20/18 Rx Clonidine [Catapres] 0.1 mg PO Q8HR PRN 12/20/18 03/20/19 Unknown History Losartan Potassium 100 mg PO DAILY 12/20/18 03/20/19 Unknown History Cholecalciferol (Vitamin D3) 2,000 unit PO DAILY 03/20/19 03/20/19 Unknown History [Vitamin D3] Lactulose 30 ml PO DAILY 03/20/19 03/20/19 Unknown History Quetiapine [Seroquel] 25 mg PO HS 03/20/19 03/20/19 Unknown History - History of Present Illness-Neuro Nature of Presenting Problem: Patient reports right sided weakness, yesterday. She was dragging her right leg at PM yesterday and was not able to get out of a sitting position this AM as she was initially unable to move the right arm and leg. She was able to ambulate with her walker after a short while. She also gives a history of recurrent UTI and had been on chronic antibiotic in the past. she reports suprapubic pain worse with urination. she had had different abx treatment as out pt prior to recent episode Headache Location: reports: other Onset/Duration: reports: other (yesterday) Timing: reports: resolved prior to arrival Context: reports: other (weakness, upper and lower extremities as in HPI) Character of Altered Mental Status: reports: N/A Any recent trauma/injury?: reports: none Character of Deficits: reports: decreased ability to stand New weakness or altered sensation location:: reports: RUE, RLE Cognitive Baseline: alert, oriented x3 Gait Baseline: walks only with assistance Associated Symptoms: reports: denies symptoms Similar Symptoms Previously?: Yes Recently seen or treated by another doctor?: Yes Review of Systems - Adult - REVIEW OF SYSTEMS - ADULT Constitutional: reports: no symptoms reported Eyes: reports: no symptoms reported Ears, Nose, Mouth & Throat: reports: no symptoms reported Cardiovascular: reports: no symptoms reported Respiratory: reports: no symptoms reported Gastrointestinal: reports: no symptoms reported Genitourinary: reports: see HPI Musculoskeletal: reports: no symptoms reported Integumentary: reports: no symptoms reported Neurological: reports: see HPI Psychiatric: reports: no symptoms reported Endocrine: reports: no symptoms reported Hematologic/Lymphatic: reports: no symptoms reported Allergic/Immunologic: reports: no symptoms reported Past History - Adult - PAST MEDICAL HISTORY-ADULT Review of Records: reports: Nursing Assessment Review, Medications Reviewed, Social history reviewed & non-contributory. Major Childhood Illnesses: reports: denies history Cardiovascular: reports: CHF, HTN Respiratory: reports: asthma, COPD Gastrointestinal: reports: GERD Obstetrical/Gynecological: reports: denies history Genitourinary: reports: kidney disease Musculoskeletal: reports: denies history Neurological: reports: dementia, TIA Psychiatric: reports: anxiety Endocrine/Immune: reports: Diabetes, thyroid disorder Other Conditions: reports: denies history - PRIOR SURGERIES/PROCEDURES Surgical/Procedure History: reports: hysterectomy, tonsillectomy, other (thyroidectomy, eye sx) - IMMUNIZATION STATUS Childhood Immunizations: See Nurse Assessment Flu Vaccine: See Nurse Assessment - FAMILY HISTORY Family History: reviewed, not pertinent - SOCIAL HISTORY Smoking: denies Substance Use: none/never Alcohol Use Frequency: never Physical Exam- Neurological - Physical Exam-Neuro Initial Vital Signs Reviewed: Yes General Appearance: appears well, alert, no apparent distress Eye Exam: bilateral eye: PERRL HENMT: normocephalic/atraumatic Head Injury: no evidence of injury Neck: non-tender, full range of motion, supple Respiratory: chest non-tender, lungs clear, normal breath sounds Cardiovascular: no edema, no JVD Abdominal Exam: non tender, soft Extremity: non-tender, other (able to 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 all extremities) 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 Exam: normal hearing, normal speech, PERRL Motor/Sensory: other (able to move her extremities) Integumentary: normal color Psych/Mental Status: oriented x 3 - Glascow Coma Scale Best Eye Response: (4) open spontaneously Best Verbal Response: (5) oriented Best Motor Response: (6) obeys commands Total Glascow Score: 15 Progress - PLAN OF CARE/RESULTS Progress/Plan/Lab Results: 03/19/19 13:48 Urine Culture - Final Urine,Clean Catch MIXED CHANEL Orders Category Date Time Status [facility] Routine AdmDCTranf 03/19/19 18:34 Active Activity - Up with Assistance ORDERED Care 03/19/19 18:34 Active Apply Mechanical Device [QM] ORDERED Care 03/19/19 18:34 Active Cardiac Monitoring DIRECTED Care 03/19/19 12:46 Completed Finger Stick Blood Sugar (ED) DIRECTED Care 03/19/19 12:46 Completed Intake and Output-Strict ORDERED Care 03/19/19 18:34 Active Misc. NRSG Communication Order DIRECTED Care 03/19/19 12:46 Completed Oxygen Therapy- ED Nursing DIRECTED Care 03/19/19 12:46 Completed Saline Loc NOW Care 03/19/19 12:46 Active Vital Signs Order Q 4-HR ASSESS Care 03/19/19 18:34 Active Z-Document. for Tele Applied ORDERED Care 03/19/19 18:34 Completed Heart Healthy Diet Diet 03/19/19 18:35 Active CHEST-PORTABLE [RAD] Stat Exams 03/19/19 12:[address] HEAD W/O CONTRAST [CT] Stat Exams 03/19/19 12:46 Completed BASIC METABOLIC PANEL [CHEM] Routine Lab 03/20/19 07:25 Completed CBC WITH DIFF [HEME] Routine Lab 03/20/19 07:25 Completed CBC WITH ELECTRONIC DIFF [HEME] Stat Lab 03/19/19 13:32 Completed COMPREHENSIVE METABOLIC PANEL [CHEM] Stat Lab 03/19/19 13:32 Completed LIPID PROFILE W/DIR LDL [LIPIDS] Routine Lab 03/20/19 07:25 Completed PROTIME WITH INR [COAG] Stat Lab 03/19/19 13:32 Completed PTT [COAG] Stat Lab 03/19/19 13:32 Completed TROPONIN T Stat Lab 03/19/19 13:32 Completed URINALYSIS W/POSS RFLX CULT [URINALYSIS] Stat Lab 03/19/19 12:43 Completed URINE CULTURE [RM] Routine Lab 03/19/19 13:48 Completed URINE MANUAL MICROSCOPIC [URINALYSIS] Stat Lab 03/19/19 12:43 Completed Acetaminophen [Tylenol] Med 03/19/19 18:34 Active 650 mg PO Q6H PRN PRN Aspirin Med 03/20/19 09:00 Active 81 mg PO DAILY CefTRIAXONE [Rocephin] 1 gm Med 03/19/19 18:34 Active 0.9% Sodium Chloride Inj [Ns] 50 ml IV Q24H Clopidogrel [Plavix] Med 03/19/19 18:34 Active 75 mg PO DAILY Hydralazine [Apresoline] Med 03/19/19 15:33 Discontinued 10 mg IV NOW ONE Levofloxacin 750 mg/D5w [Levaquin 750 mg/D5w] Med 03/19/19 15:34 Discontinued 750 mg in 150 ml IV NOW Ondansetron [Zofran] Med 03/19/19 18:34 Active 4 mg IV Q4H PRN PRN Telemetry [OM.EQ] Routine Oth 03/19/19 18:34 Active EKG [EKG] Stat Ther 03/19/19 12:46 Draft Echo Spec/Color Doppler Routine Ther 03/20/19 07:00 Completed Transfer/Admit Order [TRANSFER] Routine Transfer 03/19/19 15:47 Completed Result Diagrams: 03/21/19 14:34 03/21/19 07:48 - REASSESSMENT Reassessment #1 Time Reassessed: 15:30 Status: unchanged (patient has no new symptoms, awake allert. Discussed positive UA and neg CT head. She has low Na of 132, bun/cr 24/1.9 respectively.Daughter still concern about why she had R sided weakness- though improve. Discussed admission with pt and daughter. Will treat her high BP) - EKG 1 Time of EKG reading by physician:: 13:40 EKG Read and Signed by:: Dionne Herrera EKG Interpretation (*Must complete 3 of following elements*): Normal Rate: 66 [place]: normal QRS: normal - XRAY 1 XRAY Study: Chest ( EXAM: CHEST-PORTABLE INDICATION: stroke like symptoms TECHNIQUE: One view COMPARISON: 01/10/2019 FINDINGS: There is stable mild elevation of the right hemidiaphragm. There is stable linear scarring versus chronic atelectasis in the left midlung zone. The lungs are grossly clear, otherwise. There is no discrete pleural fluid collection or pneumothorax. The cardiac silhouette is prominent but stable. Central vasculature is unremarkable. IMPRESSION: Cardiomegaly and stable linear scarring versus chronic atelectasis in the left midlung zone. Electronically signed by Raymundo Navarro 03/19/2019 1:10 PM) - CT/MRI 1 CT Study: Head ( CT HEAD W/O CONTRAST - 03/19/2019 INDICATION: stroke like symptoms COMPARISON: 03/09/2018 FINDINGS: The ventricles and sulci are normal in size and contour. No intracranial mass or hemorrhage. There is stable moderate chronic microvascular ischemia of the periventricular and pontine white matter. The skull is intact. The sinuses, mastoids, and middle ears are clear. IMPRESSION: No acute disease or change from prior. This exam was performed using automated exposure control, adjustment of mA or kV according to patient size, and/or use of iterative reconstruction technique Electronically signed by Sebastian Loo 03/19/2019 1:18 PM) Departure - Departure Date of Disposition Decision: 03/19/19 Time of Disposition Decision: 15:45 DIAGNOSIS: Hyponatremia, Weakness Hypertension Qualifiers: Hypertension type: unspecified Qualified Code(s): I10 - Essential (primary) hypertension TIA (transient ischemic attack) Qualifiers: Transient cerebral ischemia type: unspecified Qualified Code(s): G45.9 - Transient cerebral ischemic attack, unspecified Disposition: ADMITTED INPATIENT 09 [facility] Medical Emergency: Emergent Condition: Stable - Critical Care Note This patient required my direct & personal management of CC.: No Attestation - Physician/ DAYANA Attestation Patient care was provided by Advanced Practice Provider:: No The physician spent face to face time with patient:: Yes Advanced Practice Provider documentation review:: Supervising physician onsite and consulted in the evaluation and care of this patient. The physician did have a face to face encounter with the patient.
[2019-03-19 13:47] LABS: URINE CRYSTALS URIC ACID PRESENT
[2019-03-19 13:51] LABS: BASO# 0.03 X1000 (0.0-0.2); BASO% 0.4 % (0.0-0.8); EOS# 0.13 X1000 (0.0-0.7); EOS% 1.8 % (0.0-10.0); HEMATOCRIT 35.6 % (37.0-47.0); HEMOGLOBIN 11.7 g/dL (12.0-16.0); LYMPH# 2.72 X1000 (1.2-3.4); MCH 27.8 PG (27-31); MCHC 32.9 g/dL (33-37); MCV 84.6 FL (81-99); MONO# 0.83 X1000 (0.11-0.59); MONO% 11.6 % (1.7-9.3); MPV 8.7 FL (7.4-10.4); NEUT# 3.45 X1000 (1.4-6.5); NEUT% 48.2 % (42.2-75.2); PLT 262 X1000 (130-400); RBC 4.21 XMIL (4.2-5.4); RDW 13.4 % (11.5-14.5); WBC 7.16 X1000 (4.8-10.8)
[2019-03-19 14:07] LABS: INR 1.05; PROTIME 13.8 Seconds (11.0-16.0)
[2019-03-19 14:08] LABS: PTT 26.8 Seconds (22.3-41.8)
[2019-03-19 14:13] LABS: ALB/GLOB RATIO 1.2; ALBUMIN 3.6 g/dL (3.5-5.0); CALCIUM 8.7 mg/dL (8.8-10.2); CREATININE 1.9 mg/dL (0.5-0.9); POTASSIUM 4.6 mmol/L (3.5-5.1); TOTAL BILIRUBIN 0.31 mg/dL (0.20-1.00); TOTAL PROTEIN 6.5 g/dL (6.3-8.3)
[2019-03-19] MEDS ORDERED: APRESOLINE IV ONE (15:33)
[2019-03-19] MEDS ORDERED: LEVAQUIN 750 MG/D5W 750 MG/150 ML IVPB IV ONE (15:34)
[2019-03-19] MEDS ORDERED: ZOFRAN IV PRN (18:34)
--- NOTE | 2019-03-19 19:23 | HISTORY AND PHYSICAL ---
PRIMARY CARE PHYSICIAN: Elliot Morin MD CHIEF COMPLAINT: Right-sided weakness and unable to move her right leg with ambulation, that began last night through this morning and resolved this afternoon. Also noted some suprapubic pain with urination. HISTORY OF PRESENTING ILLNESS: This is an 89-year-old female who presents to [facility] with complaints of right-sided weakness that began last night. She states she was not able to get out of a sitting position. Unable to move her right arm or her right leg, was dragging her right leg once she did stand up, but later on this morning she was able to ambulate with her walker and has regained her strength to her right hand, but she will be admitted for further evaluation and treatment. PAST MEDICAL HISTORY: CHF, hypertension, asthma, hypothyroidism, anxiety, GERD, COPD, chronic kidney disease, dementia, TIA, and diabetes type 2. PAST SURGICAL HISTORY: Hysterectomy, tonsillectomy, thyroidectomy and an eye surgery. FAMILY HISTORY: Reviewed and noncontributory. SOCIAL HISTORY: She currently lives with family. Denies any tobacco, alcohol or illicit drug use. ALLERGIES: Codeine, penicillin and sulfa. HOME MEDICATIONS: A current list will need to be obtained, reconciled, reviewed and restarted as appropriate. We will place an order for nursing to update and confirm home medications. LABORATORY DATA: Showed a white blood cell count of 7.16, hemoglobin 11.7, hematocrit 35.6, platelets 262,000. PT and INR of 13.8 and 1.05. Sodium 132, potassium 4.6, chloride 101, CO2 is 20, BUN of 24, creatinine 1.9 with a baseline between 1.5 and 2. Cardiac enzymes were negative. Urinalysis showed negative nitrites, large leukocytes and 4+ bacteria with uric acid crystals present. DIAGNOSTIC DATA: CT of the head showed no acute disease or change from prior. Chest x-ray showed cardiomegaly and stable linear scarring, versus chronic atelectasis in the left mid zone of the lung. EKG showed normal sinus rhythm at 66. REVIEW OF SYSTEMS: She denied any fever, chills, blurred vision, dizziness, chest pain, coughing or shortness of breath. Denied any abdominal pain, constipation or diarrhea. She did have suprapubic pain with urination. She also had right-sided upper and lower extremity weakness that has now resolved. PHYSICAL EXAMINATION: VITAL SIGNS: On arrival she had a temperature of 98.1 degrees, pulse 66, respirations 16, blood pressure 151/76, saturating 96% on room air. GENERAL: This is an 89-year-old female, lying in the bed and answers questions appropriately. HEENT: Normocephalic, atraumatic. Normal ENT inspection. Oropharynx and nares are clear. Eyes: Pupils are equal, round and reactive to light and accommodation. Extraocular movements are intact. NECK: Normal inspection, normal range of motion. LUNGS: Clear to auscultation bilaterally, with equal lung expansion and chest wall movement. HEART: Regular rate and rhythm. No murmurs, rubs or gallops. ABDOMEN: Soft, nontender, nondistended. Bowel sounds are present x4 quadrants. MUSCULOSKELETAL: She had 5/5 strength at this time. NEUROLOGICAL: The cranial nerves 2-12 are grossly intact at time of assessment. ASSESSMENT: 1. Transient ischemic attack versus cerebrovascular accident. 2. Urinary tract infection. 3. Hyponatremia. 4. Diabetes type 2. PLAN: She will be admitted to the medical unit, placed on telemetry. We will update and confirm home medications. Place on healthy-heart diet. We will check an echocardiogram and a carotid ultrasound in the a.m. Apply SCDs for DVT prophylaxis. Check an MRI of the brain with and without contrast in the a.m., place on Rocephin 1 g IV q.24. She takes aspirin 81 mg p.o. daily, and she did take that this morning. We will add Plavix 75 mg p.o. daily. Further orders after seen by attending. Dictated by JUAN Varela for Jayden Merino MD cc: JUAN Varela MD Adnan A. Seljuki, MD
--- NOTE | 2019-03-19 21:27 | HISTORY AND PHYSICAL ---
ADDENDUM: I have seen and examined Ms. Resendiz today. Ms. Resendiz presented to the emergency department today because of the right leg weakness and some slurred speech. According to her, she woke up at about 4 a.m. today and went to sit in her recliner, but when she started walking, she felt like she was dragging her feet. When she went to sit down, she felt that her right arm could also hardly get up. She got slurred in her speech. She was there for about 2 hours. She felt some slight improvement until her helper came and she was brought into the emergency room where she was evaluated and she has been admitted because of possible TIA. PHYSICAL EXAMINATION: CURRENT VITAL SIGNS: Blood pressure is 151/76, pulse of 66, respirations 16, temperature is 98.1 degrees. HEENT: Physical exam is reveals mucosa is slightly dry, but is pink and anicteric and acyanotic. NECK: Is supple. CHEST: Was clear to auscultation. CARDIOVASCULAR: Is regular rate with occasional extrasystolic beats. ABDOMEN: Soft, nontender. EXTREMITIES: No pedal edema. SLATE TRIMMER: Patient is awake, alert, has a very clear and comprehensive speech. Cranial nerves seem to be unremarkable on exams. Her motor function is 5/5 in all extremities. I was not able to elicit any deficit. LABORATORIES: Her labs have also been evaluated. Hemoglobin is 11.7 with normal MCV. Chemistry is shown. Sodium is 132. Creatinine is 1.9. This has gone up from 1.2 on the last lab which was done December of this year. BUN has also gone up to 24. Patient's urinalysis is slightly pathological; however, Ms. Resendiz refers that she gets urinary tract infection [id number] and she had just finished antibiotic treatment about a week ago. ASSESSMENT: 1. Transient right-sided weakness associated with slurred speech. This is concerning for transient ischemic attack. Currently, Ms Resendiz does not have any neuro deficit. An MRI has been ordered to have a better view of the brain anatomy. A CT scan on admission was completely unremarkable. 2. Mild clinical volume depletion. We will start the patient on gentle hydration overnight and repeat her chemistry tomorrow morning. 3. Suspected urinary tract infection. The patient is on antimicrobial therapy. 4. Hypertension. We will start the patient back on her home medications. Please refer to the details of the history and physical that has been dictated by the nurse practitioner in the chart. cc: Jayden Merino MD
[2019-03-19] MEDS: ROCEPHIN 1 GM in NS 50 ML IV SCH (22:32)
[2019-03-19] MEDS: NS 1,000 ML IV SCH (22:32)
[2019-03-19] MEDS: PLAVIX PO SCH (22:32)
[2019-03-20 08:04] LABS: BASO# 0.04 X1000 (0.0-0.2); BASO% 0.5 % (0.0-0.8); EOS# 0.35 X1000 (0.0-0.7); EOS% 4.2 % (0.0-10.0); HEMATOCRIT 38.2 % (37.0-47.0); HEMOGLOBIN 12.5 g/dL (12.0-16.0); IMM GRAN# 0.02 X1000 (0.0-0.04); IMM GRAN% 0.2 % (0.0-0.5); LYMPH# 2.54 X1000 (1.2-3.4); LYMPH% 30.6 % (20.5-51.1); MCH 27.7 PG (27-31); MCHC 32.7 g/dL (33-37); MCV 84.5 FL (81-99); MONO# 0.82 X1000 (0.11-0.59); MONO% 9.9 % (1.7-9.3); NEUT# 4.52 X1000 (1.4-6.5); NEUT% 54.6 % (42.2-75.2); PLT 303 X1000 (130-400); RBC 4.52 XMIL (4.2-5.4); RDW 13.4 % (11.5-14.5); WBC 8.29 X1000 (4.8-10.8)
[2019-03-20 08:45] LABS: CALCIUM 9.1 mg/dL (8.8-10.2); CREATININE 1.6 mg/dL (0.5-0.9)
[2019-03-20] MEDS: PLAVIX PO SCH (10:25)
[2019-03-20] MEDS: ASPIRIN PO SCH (10:25)
[2019-03-20] MEDS ORDERED: CATAPRES PO PRN (11:47)
[2019-03-20] MEDS: KLONOPIN PO PRN (12:38)
[2019-03-20] MEDS: NS 1,000 ML IV SCH (12:38)
[2019-03-20] MEDS: LANTUS INSULIN SUBQ SCH ×2 (12:38→21:00)
[2019-03-20] MEDS: TOPROL XL PO SCH (12:38)
--- NOTE | 2019-03-20 12:43 | Diag Imaging Result Doc PS360 ---
EXAM: MRI BRAIN W/O CONTRAST INDICATION: AMS COMPARISON: 12/03/2017 FINDINGS: There is patchy T2/FLAIR hyperintensity in the periventricular and subcortical white matter as well as the pontine white matter that is similar to the previous study suggesting mild to moderate microangiopathy. There is no evidence of acute infarct. There is no discrete intracranial mass, mass effect, or intracranial hemorrhage. The surrounding soft tissues and bony structures are essentially unremarkable. 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 No definite acute intracranial pathology. Electronically signed by Raymundo Navarro 03/20/2019 12:41 PM
--- NOTE | 2019-03-20 14:06 | ECHO REPORT ---
ORDER DATE: 03/20/2019 INDICATION: TIA versus CVA. FINDINGS: 1. The right atrium appears normal in size. 2. Mild tricuspid regurgitation. The RV systolic pressure is 52. 3. Normal RV size and systolic function. 4. No significant pulmonic insufficiency. 5. Moderate left atrial enlargement with a volume index of 35. 6. No mitral valve prolapse. Calcification of the mitral annulus is noted. Mild mitral regurgitation. 7. Normal LV size, end-diastolic dimension of 3.1. Moderate left ventricular hypertrophy with a posterior and interventricular septal wall thickness of 1.5 and 1.4 cm respectively. Normal LV systolic function. Estimated EF of 60-65% with normal wall motion. 8. Aortic valve is difficult to visualize but does appear to be somewhat calcified. There is likely a restriction of motion consistent with mild aortic stenosis. The valve area by planimetry is 1.5 cm2. The peak gradient across the valve is 24 with a mean of 14. No insufficiency. 9. Aorta appears normal in visualized segments. 10. No pericardial effusion seen. cc: MD Ghada Eric CRNP
[2019-03-20] MEDS: ROCEPHIN 1 GM in NS 50 ML IV SCH (17:23)
--- NOTE | 2019-03-20 17:32 | PROGRESS NOTE ---
DATE: 03/20/2019 SUBJECTIVE: This patient seems to be getting better. She is not complaining of any weakness today. As per the patient probably on the right lower extremity but upon my evaluation, she seems to be good. I have requested Physical Therapy and Occupational Therapy to evaluate this patient as well. MRI did not show any acute abnormality. OBJECTIVE: Vital Signs: Temperature 97.4 degrees, pulse 81, respiratory rate 16, blood pressure 185/78, and oxygen saturation 100% on room air. HEENT: Head normocephalic. No trauma. PERRLA on the right eye. Left eye with a chronic lesion that looks like cataracts. Neck: Supple. No JVD. Central trachea. Chest: Clear to auscultation. No wheezing. No rales. Abdomen: Soft, nontender, and nondistended. No hepatosplenomegaly. Neurological: The patient is awake. She is alert. She is moving all 4 extremities spontaneously. She states that her right lower extremity probably is a little bit weak, but upon exam she seems to be doing good. LABORATORY: WBC 8.2, hemoglobin 12.5, hematocrit 38.2, and platelets 303,000. Sodium 136, potassium chloride 103, bicarbonate 21, BUN 22, creatinine 1.6, glucose 94, and calcium 9.1. ASSESSMENT AND PLAN: 1. Transient right-sided weakness associated with slurred speech, completely resolved, concerning for TIA. She does not have a neuro deficit right now. MRI has been ordered and has been negative. It looks like also she had a carotic ultrasound done just a few months ago on 12/04/2018, and there is no significant plaque disease identified, and stenosis were CO2 39%, which is okay. 2. Dehydration resolved. 3. Possible urinary tract infection. Urine culture has been negative. She has been placed on ceftriaxone in the meantime. She is not sure if she is symptomatic or not. 4. Hypertension, I have placed this patient back on her home medications already today. Blood pressure is elevated. 5. Hyponatremia resolved. 6. Type 2 diabetes. I will ask for a hemoglobin A1c. I will put this patient back on home medications. I had a large conversation with this patient about her glucose results which are basically normal, but she states that she has not been eating, I instructed the patient to eat like she eats at home so I can put her back on her home medications. 7. Constipation. Continue with MiraLAX and lactulose. 8. Generalized weakness. I will put this patient on physical therapy pending echocardiogram results. cc: Howard Red MD
[2019-03-20] MEDS ORDERED: ROCEPHIN ONE (19:48)
[2019-03-20] MEDS: REQUIP PO SCH (20:58)
[2019-03-20] MEDS: SEROQUEL PO SCH (20:59)
[2019-03-20] MEDS: LIPITOR PO SCH (20:59)
[2019-03-21] MEDS: PROTONIX PO SCH (06:21)
[2019-03-21] MEDS ORDERED: LINZESS PO SCH (07:00)
[2019-03-21 08:24] LABS: HEMOGLOBIN A1C 6.4 % (4.8-6.0)
[2019-03-21 08:33] LABS: CALCIUM 9.3 mg/dL (8.8-10.2); CREATININE 1.4 mg/dL (0.5-0.9); POTASSIUM 3.8 mmol/L (3.5-5.1)
[2019-03-21] MEDS: SYNTHROID PO SCH (09:24)
[2019-03-21] MEDS: PLAVIX PO SCH (09:24)
[2019-03-21] MEDS: ASPIRIN PO SCH (09:24)
[2019-03-21] MEDS: LACTULOSE PO SCH (09:24)
[2019-03-21] MEDS: LANTUS INSULIN SUBQ SCH ×2 (09:24→20:19)
[2019-03-21] MEDS: TOPROL XL PO SCH (09:25)
[2019-03-21] MEDS: FERROUS SULFATE PO SCH (09:25)
[2019-03-21] MEDS: KLONOPIN PO PRN ×2 (09:36→20:26)
[2019-03-21] MEDS ORDERED: DULCOLAX PR ONE (09:40)
[2019-03-21] MEDS: CATAPRES PO PRN (12:12)
[2019-03-21] MEDS: COZAAR PO SCH (12:12)
[2019-03-21] MEDS: HUMALOG SUBQ SCH ×3 (12:49→20:20)
--- NOTE | 2019-03-21 14:07 | PROGRESS NOTE ---
DATE: 03/21/2019 SUBJECTIVE: As per the patient, she had an episode during the night where she was not able to move the right lower extremity, but it has completely resolved. We did an MRI without contrast due to her kidney dysfunction and it looks like it is good with no new acute issues, echocardiogram showed an aortic valve calcification with some motion restriction. Her hemoglobin A1c 6.4. She has been tolerating her diet and the blood pressure has been elevated so I gave her a dose of clonidine and I put her back on losartan, blood pressure seems to be more stable now. OBJECTIVE: Vital Signs: Temperature 97.5 degrees, pulse 68, respiratory rate 16, blood pressure 126/62, oxygen saturation 98 on room air. Head normocephalic, no trauma. PERRLA on the right eye. Left eye with a chronic lesion that looks like cataracts. Neck: Supple, no JVD. Central trachea. Chest: Clear to auscultation. No wheezing. No rales. Abdomen: Soft, nontender, nondistended. No hepatosplenomegaly. Extremities: No edema, no clubbing, no cyanosis. Neurological: The patient is alert. She is oriented x3. She moves all 4 extremities spontaneously, but she does have bilateral lower extremity weakness, but I do not see any focal weakness, though. LABORATORY: Sodium 135, potassium 3.8, chloride 100, bicarbonate 21, BUN 21, creatinine 1.4, glucose 135, calcium 9.3, hemoglobin A1c 6.4. ASSESSMENT AND PLAN: 1. Transient right-sided weakness associated with slurred speech on presentation, this is completely resolved. Apparently, she had an episode where she was not able to move too much of the right lower extremity yesterday night, this is concerning for TIA, MRI of the head did not show any acute abnormality and the carotid ultrasound 3 months ago was completely normal, echocardiogram showed aortic valve calcification with some motion restriction. Since the patient is having generalized weakness mostly at the level of the lower extremities, I will work with her and physical therapy, I have requested already occupational therapy as well. On Sunday, I want this patient to be seen by the Neurology Department. She has been placed on aspirin. She is on Lipitor and we are trying to control her blood pressure. 2. Dehydration, resolved. 3. Possible urinary tract infection. Continue with ceftriaxone. 4. Hypertension, uncontrolled, I have placed this patient back on losartan and also clonidine as needed. 5. Hyponatremia, resolved. 6. Type 2 diabetes. Hemoglobin A1c 6.4. I will continue with her home medications. She seems to be stable. 7. Constipation. Continue MiraLAX and lactulose. I also recommend this patient to get up and try to walk a bit with help. 8. Generalized weakness and physical deconditioning, especially lower extremities. Continue physical therapy and occupational therapy. cc: Howard Red MD
[2019-03-21 14:47] LABS: BASO# 0.03 X1000 (0.0-0.2); BASO% 0.4 % (0.0-0.8); EOS# 0.21 X1000 (0.0-0.7); EOS% 2.6 % (0.0-10.0); HEMOGLOBIN 12.2 g/dL (12.0-16.0); IMM GRAN# 0.03 X1000 (0.0-0.04); IMM GRAN% 0.4 % (0.0-0.5); LYMPH# 3.14 X1000 (1.2-3.4); LYMPH% 39.4 % (20.5-51.1); MCH 27.9 PG (27-31); MCV 84.5 FL (81-99); MONO# 0.79 X1000 (0.11-0.59); MONO% 9.9 % (1.7-9.3); MPV 8.6 FL (7.4-10.4); NEUT# 3.76 X1000 (1.4-6.5); NEUT% 47.3 % (42.2-75.2); PLT 284 X1000 (130-400); RBC 4.38 XMIL (4.2-5.4); RDW 13.2 % (11.5-14.5); WBC 7.96 X1000 (4.8-10.8)
[2019-03-21 14:52] LABS: INR 1.03; PROTIME 13.7 Seconds (11.0-16.0)
--- NOTE | 2019-03-21 14:54 | Diag Imaging Result Doc PS360 ---
EXAM: CT HEAD W/O CONTRAST 03/21/2019 HISTORY: Change in mental status TECHNIQUE: This exam was performed using automated exposure control, adjustment of mA or kV according to patient size, and/or use of iterative reconstruction technique. COMMENT: There is no evidence of mass effect, bleed, or abnormal extra-axial fluid collection. There are patchy subcortical white matter lucencies particularly in the left parietal convexity. The latter was not the case on the previous study of 03/19/2019. IMPRESSION: Subtle subcortical lucency in the left parietal convexity which may indicate an evolving infarction. Further evaluation with MRI may be desirable. The findings were discussed with Howard Gardiner MD at 03/21/2019 at 1443. Electronically signed by Tobias Melo 03/21/2019 2:52 PM
--- NOTE | 2019-03-21 15:55 | PROGRESS NOTE ---
DATE: 03/21/2019 SUBJECTIVE: A stroke code was called around 2:30 p.m. I evaluated the patient immediately and I find out that this patient's right side of the body was weak. She was not able to move the right arm, right leg or talk. She was following commands and she was alert. She was able to squeeze my hand with her left hand and hold it against gravity. She was able also to move a little bit the left lower extremity. She was answering questions with a yes or no moving her head. We immediately had some lab work done and we sent it to Radiology. We did a CT scan without contrast that showed a subtle subcortical lucency in the left parietal convexity, which may indicate an evolving infarction. They recommended to do an MRI and the patient is get an MRI right now. Her vital signs at the bedside show a pulse of 81 and blood pressure 184/85 with a 93% oxygen saturation on room air. I contacted [facility] and I talked to the transfer center. That was around 2:48 to 2:50 p.m. I explained to them the whole situation and explained to them that she was not having any weakness at all today in the morning and now suddenly she is having a right-sided weakness and she is not able to talk, I told them that she has the possibility of an evolving subcortical white matter stroke in the left parietal lobe, which I have discussed with the radiologist. I gave them the vital signs that were taken at 12 today because I did not have in my hand the new ones. At 12/noon today the temperature was 97.5 degrees, pulse 68, respiratory rate 16, blood pressure 128/62 and oxygen saturation 98 on room air. I told them that we did a CT scan on 03/19/2019 without any evidence of acute problems and also a brain MRI without contrast due to her kidney dysfunction that did not show any new problems either. Also, like I mentioned before, I told them about the new CT scan results. They kept my phone number and I received a call back at 3:09 p.m. I did talk to the transfer lady dip lube operator and she stated that she discussed the case with Dr. John, which has refused the patient. It looks like they are not going to offer anything else in that hospital. I just re-evaluated this patient 5 minutes ago. Now, she is able to talk. She is able to squeeze my hand on the right side, she is still not able to move her right lower extremity. It looks like she is recovering slowly. Strength at the level of the right upper extremity looks like 1 to 2/5. Her left side of the body seems to be at baseline. She does have a little bit of facial weakness on the right side as well, but not too much. At this moment she is getting an MRI. We will follow the results. PLAN: My plan is to continue with the same management. She has been on aspirin, Plavix. We have been trying to take care of her blood pressure. She is on a statin as well. cc: Howard Red MD
--- NOTE | 2019-03-21 15:55 | Diag Imaging Result Doc PS360 ---
EXAM: MRI BRAIN W/O CONTRAST 03/21/2019 HISTORY: R/O stroke TECHNIQUE: T1 sagittal, axial, axial T2, FLAIR, DWI and coronal gradient echo. COMMENT: The current study is compared with the previous examination of 03/20/2019. There is increased T2-weighted signal intensity in the periventricular white matter of both hemispheres and in the centrum semiovale ovale on the left in particular. This is probably related to the lucency seen on the recent CT examination. There are some very small foci of restricted diffusion present in the left parietal convexity in the subcortical white matter. These are much less extensive than the areas of increased T2-weighted signal intensity. In retrospect they were also present on the previous examination. There is no evidence of bleed mass effect or abnormal extra-axial fluid collection. There is some encephalomalacia present in the anterior body of the corpus callosum to the left of the midline. This was also present on the previous examination. Compared to the previous examination of 12/03/2017 the restricted diffusion was not previously present and the encephalomalacic changes in the corpus callosum were not present previously. The T2-weighted signal abnormalities in the left parietal lobe are worse currently. IMPRESSION: Chronic ischemic microvascular white matter changes with apparent superimposed small lacunar subacute infarctions in the left parietal white matter. Electronically signed by Tobias Melo 03/21/2019 3:52 PM
--- NOTE | 2019-03-21 17:25 | Diag Imaging Result Doc PS360 ---
EXAM: CT ANGIOGRAM HEAD/NECK 03/21/2019 HISTORY: Stroke TECHNIQUE: This exam was performed using automated exposure control, adjustment of mA or kV according to patient size, and/or use of iterative reconstruction technique. COMMENT: 3-D MIPS were performed. There are atherosclerotic calcifications present in the arch of the aorta. Both common carotid and cervical internal carotid arteries are widely patent. Both vertebral arteries are patent. The basilar artery and left posterior cerebral artery are patent. The P1 segment of the right posterior cerebral artery is not demonstrated. The posterior communicating artery is apparently the primary supply to the right posterior cerebral. Both intracerebral internal carotid arteries, anterior cerebral and middle cerebral arteries are patent. There is no evidence of aneurysm. Otherwise there is no evidence of abnormal contrast enhancement. IMPRESSION: No evidence of major branch occlusion or stenosis. Electronically signed by Tobias Melo 03/21/2019 5:23 PM
[2019-03-21] MEDS: NS 1,000 ML ONE ×2 (18:22→18:23)
[2019-03-21] MEDS: NS 1,000 ML IV SCH (18:24)
[2019-03-21] MEDS: ROCEPHIN 1 GM in NS 50 ML IV SCH (18:25)
--- NOTE | 2019-03-21 19:19 | PROGRESS NOTE ---
DATE: 03/21/2019 This patient seems to be getting better. She is able to move the upper extremity and her strength is about 3 to 4/5. She has no problem talking or swallowing, actually she is eating right now, she is still having right lower extremity weakness maybe 1/5. I called [facility] to see if this patient needed to be transferred. My 1st call was at 3:57 p.m. and I talked to Dr. Hannah; she is the neurologist. We reviewed all the data and then she recommended to do a CT angiogram of the head and neck, which I did. I also sent all the images to [facility] so she can evaluate the images herself. The new CT angiogram of the head and neck did not show any evidence of major branch occlusion or stenosis, but she has a small lesion in the anterior cerebral artery per Dr. Hannah that probably is causing the weakness. Also, she is having chronic microangiopathic lesions. It has been recommended to increase the Lipitor from 10 to 40. Also, she has been recommended to keep the blood pressure elevated/permissive hypertension. Only treat the blood pressure if the blood pressure is above 220. She has recommended to keep it that way for 48 hours. I called again at 5:30 [address] and talked to Dr[address] Hannah and we discussed about the CTA results. She has recommended to put this patient lying flat and go with fluids if she has another episode of stroke. These has been discussed with my nurse at the bedside. For now, we will continue with the same management. I will hold all the blood pressure medications. I will use amlodipine if the blood pressure is above 220. I will continue with aspirin and Plavix. Dr. Hannah and I discussed the possibility of using anticoagulation and she basically not to do that. I agree with this. cc: Howard Red MD
[2019-03-21] MEDS: LIPITOR PO SCH (20:18)
[2019-03-21] MEDS: REQUIP PO SCH (20:18)
[2019-03-21] MEDS: SEROQUEL PO SCH (20:19)
[2019-03-22] MEDS: PROTONIX PO SCH (05:57)
[2019-03-22] MEDS: HUMALOG SUBQ SCH ×4 (06:02→21:01)
[2019-03-22 06:39] LABS: BASO# 0.03 X1000 (0.0-0.2); BASO% 0.4 % (0.0-0.8); EOS# 0.32 X1000 (0.0-0.7); EOS% 3.9 % (0.0-10.0); HEMATOCRIT 37.5 % (37.0-47.0); HEMOGLOBIN 12.1 g/dL (12.0-16.0); IMM GRAN# 0.03 X1000 (0.0-0.04); IMM GRAN% 0.4 % (0.0-0.5); LYMPH# 3.32 X1000 (1.2-3.4); LYMPH% 40.3 % (20.5-51.1); MCH 27.6 PG (27-31); MCHC 32.3 g/dL (33-37); MCV 85.6 FL (81-99); MONO# 0.75 X1000 (0.11-0.59); MONO% 9.1 % (1.7-9.3); MPV 8.9 FL (7.4-10.4); NEUT# 3.79 X1000 (1.4-6.5); NEUT% 45.9 % (42.2-75.2); PLT 267 X1000 (130-400); RBC 4.38 XMIL (4.2-5.4); RDW 13.4 % (11.5-14.5); WBC 8.24 X1000 (4.8-10.8)
[2019-03-22 07:00] LABS: CALCIUM 9.1 mg/dL (8.8-10.2); CREATININE 1.5 mg/dL (0.5-0.9)
--- NOTE | 2019-03-22 07:56 | PROGRESS NOTE ---
DATE: 03/22/2019 SUBJECTIVE: This patient had an episode of right-sided weakness that happened yesterday around 2:30 in the afternoon. Also, she was not able to talk at that moment, but she had some facial weakness on the right side. I contacted [facility] but they did not take the patient. Then, I contacted [facility] and I did multiple studies including CT of the head without contrast, CT angiogram of the head and neck and MRI, that showed a small lacunar infarction in the left parietal white matter. As per the neurologist at [facility], she has some ischemic lesions and anterior circulation as well compromising the temporal lobe. The patient recovered partially from these problem. Now, she is able to talk. She is able to move the right hand, but the right upper extremity is weaker around 3/5 compared with the left upper extremity. On the other hand, the right lower extremity strength is around 1/5. She is getting IV fluids. The blood pressure has been elevated. CBC within normal limits. Pending CMP and/or BMP. We will treat this patient medically. I will continue with the same management and aggressive physical therapy. OBJECTIVE: Vital Signs: Temperature 98.6 degrees, pulse 66, respiratory rate 18, blood pressure 186/71 and oxygen saturation 96 on room air. HEENT: Head normocephalic. No trauma. PERRLA on the right eye. Left eye has a chronic lesion. It looks like cataracts. Neck: Supple. No JVD. Central trachea. Chest: Clear to auscultation. No wheezing. No rales. Abdomen: Soft, nontender, and nondistended. No hepatosplenomegaly. Extremities: No edema. No clubbing. No cyanosis. Neurological: This patient is alert. She is oriented x3. She does have right-sided weakness. Upper extremity 3/5. The right lower extremity 0 to 1/5. As per the patient, sensation is intact. LABORATORY: WBC 8.2, hemoglobin 12.1, hematocrit 37.5, and platelets 267,000. Glucose 100. ASSESSMENT AND PLAN: 1. Acute/subacute lacunar stroke. Left parietal white matter, this happened yesterday around 2:30 in the afternoon. I contacted [facility], but they refused the patient. Then, I contacted [facility] and I had a large conversation with the neurologist over there. She agreed with the treatment. She has recommended to increase the Lipitor to 40, permissive hypertension for 48 hours and IV fluids. If the patient has a new episode, she needs to be laying completely flat and give more IV fluids. The patient has been tolerating p.o. She seems to have a little bit more of weakness today compared with yesterday, but she just woke up. I will monitor this patient during the day. She is getting IV fluids. The blood pressure has been elevated. Hopefully, this patient will be evaluated this Sunday by our Neurology Department. Likely, this patient will need to go also to a rehab center. This has been already discussed with the patient. 2. Dehydration, resolved. 3. Possible urinary tract infection. Continue with ceftriaxone. 4. Hypertension. We will allow this patient to have permissive hypertension. It has been recommended for 48 hours so I will do it. 5. Dyslipidemia. I have increased the dose of Lipitor from 10 to 40 as recommended by neurology department at [facility]. 6. Hyponatremia resolved. 7. Type 2 diabetes with a hemoglobin A1c of 6.4, seems to be stable. 8. Constipation. Continue MiraLAX and lactulose. 9. Weakness mostly on the right side due to stroke. Continue physical therapy and occupational therapy. My goal is to send this patient to a rehab center, and be evaluated also in house by Neurology Department. cc: Howard Red MD
[2019-03-22] MEDS: ASPIRIN PO SCH (08:27)
[2019-03-22] MEDS: PLAVIX PO SCH (08:28)
[2019-03-22] MEDS: LACTULOSE PO SCH (08:28)
[2019-03-22] MEDS: NS 1,000 ML IV SCH ×2 (08:28→20:59)
[2019-03-22] MEDS: FERROUS SULFATE PO SCH (08:28)
[2019-03-22] MEDS: SYNTHROID PO SCH (08:28)
[2019-03-22] MEDS: LANTUS INSULIN SUBQ SCH ×2 (08:28→21:00)
[2019-03-22] MEDS: KLONOPIN PO PRN ×2 (08:33→21:01)
[2019-03-22 09:14] LABS: URINE SOURCE CATH
[2019-03-22 09:20] LABS: BILIRUBIN URINE NEGATIVE (NEGATIVE); BLOOD URINE NEGATIVE (NEGATIVE); COLOR STRAW; GLUCOSE URINE NEGATIVE (NEGATIVE); KETONE URINE NEGATIVE (NEGATIVE); LEUKOCYTES URINE LARGE (NEGATIVE); NITRITE URINE NEGATIVE (NEGATIVE); PROTEIN URINE 30 mg/dL (NEGATIVE); SP GRAVITY URINE 1.008; TURBIDITY URINE CLEAR (CLEAR); UROBILINOGEN URINE NORMAL (NORMAL)
[2019-03-22 09:21] LABS: UR EPITHELIAL CELLS <10 /HPF (<10); URINE BACTERIA NEGATIVE /HPF; URINE RBC <10 /HPF (<10); URINE WBC TNTC /HPF (<10)
[2019-03-22] MEDS: LINZESS PO SCH (11:29)
[2019-03-22] MEDS: APRESOLINE IV PRN (14:33)
[2019-03-22] MEDS: ROCEPHIN 1 GM in NS 50 ML IV SCH (18:09)
[2019-03-22] MEDS: LIPITOR PO SCH (21:01)
[2019-03-22] MEDS: SEROQUEL PO SCH (21:01)
[2019-03-22] MEDS: REQUIP PO SCH (21:01)
[2019-03-22] MEDS: TYLENOL PO PRN (21:44)
[2019-03-23] MEDS ORDERED: NS 250 ML IV ONE (01:59)
[2019-03-23] MEDS: PROTONIX PO SCH (06:29)
[2019-03-23] MEDS: HUMALOG SUBQ SCH ×4 (06:29→20:30)
[2019-03-23] MEDS ORDERED: DULCOLAX PR ONE (06:41)
[2019-03-23 06:44] LABS: ALB/GLOB RATIO 1.2; ALBUMIN 3.3 g/dL (3.5-5.0); CALCIUM 8.7 mg/dL (8.8-10.2); CREATININE 1.5 mg/dL (0.5-0.9); POTASSIUM 3.8 mmol/L (3.5-5.1); TOTAL BILIRUBIN 0.24 mg/dL (0.20-1.00); TOTAL PROTEIN 6.1 g/dL (6.3-8.3)
--- NOTE | 2019-03-23 07:12 | PROGRESS NOTE ---
DATE: 03/23/2019 SUBJECTIVE: Patient had another episode of right-sided weakness and she was unable to talk today at 1:45 a.m. She was taken to the CT scan. I do not see any signs of bleeding. Pending report though. I just evaluated this patient and she is able to talk and actually, she is able to move the right side. Right upper extremity is 4/5 and right lower extremity is around 2/5 today. I will continue with the same management. I will allow permissive hypertension. I will ask neurology department to evaluate this patient tomorrow. I already had a conversation with a neurologist at [facility] a couple of days ago about this patient, and Dr. Hannah has recommended to keep this patient's blood pressure elevated for 48 hours, continue with aspirin and Plavix. I will stop the aspirin 81 mg and I will put her on a higher dose. I increased already the statins as well. I will keep this patient in the ICU. I will continue with IV fluids. Pending lab work today. OBJECTIVE: Vital Signs: Temperature 98.3 degrees, pulse 83, respiratory rate 23, blood pressure 205/112, oxygen saturation 97% on room air. HEENT: Head normocephalic. No trauma. PERRLA in the right eye. Left eye with a chronic lesion that looks like a cataract. Neck: Supple. No JVD. Central trachea. Chest: Clear to auscultation. No wheezing. No rales. Abdomen: Soft, nontender, nondistended. No hepatosplenomegaly. Extremities: No edema. No clubbing. No cyanosis. Neurological Examination: This patient is alert. She is oriented x3. She does have right-sided weakness, especially the lower extremity around 2/5. Right upper extremity is around 4/5 today. I do not see any facial weakness. Sensation is intact. She is following commands. Laboratory: Pending lab work at this moment. ASSESSMENT AND PLAN: 1. Acute/subacute lacunar stroke, left parietal white matter. She has been having episodes of right-sided weakness with inability to talk on and off. She had an episode 2 days ago and now today at 1:45 a.m., it happened again. We did a CT scan of the head, pending results, but I do not see any signs of bleeding. I will continue with the same management for now and hopefully tomorrow, she will be evaluated by the neurology department. I have increased the dose of aspirin from 81 to 325 and I have been holding the blood pressure medication. 2. Dehydration, resolved. 3. Possible urinary tract infection. Continue with ceftriaxone. 4. Hypertension. We will allow this patient to have permissive hypertension. It has been recommended for 48 hours but she had an episode today of right-sided weakness and she was not able to talk again, so I will continue with permissive hypertension. 5. Dyslipidemia. I have increased the dose of Lipitor from 10 to 40 as recommended by the Neurology Department at [facility]. 6. Hyponatremia, resolved. 7. Type 2 diabetes with a hemoglobin A1c of 6.4. She seems to be stable. She is tolerating oral intake. 8. Constipation. Continue with MiraLAX, lactulose, and she will receive a treatment with a suppository today. 9. Chronic kidney disease. I believe this is her baseline. We did a CT scan with contrast a couple of days ago. Yesterday, her creatinine was 1.5, pending creatinine today. 10. Weakness, mostly on the right side due to a stroke. Continue physical therapy and occupational therapy. My goal is to send this patient to a rehab center but she needs to be evaluated by the neurology department first. 11. At this moment, this patient seems to be stable. I had a conversation with Dr. Hannah 2 days ago. She works at [facility]. Given the presentation, she has recommended to keep the blood pressure elevated for at least 48 hours. Also, she recommended to increase the dose of Lipitor. I have increased the dose of the aspirin and continued intravenous fluids. We will continue physical therapy and occupational therapy. If the patient has a new episode of right-sided weakness and inability to talk, she has recommended to put this patient completely flat in bed and give her fluids. I will continue monitoring this patient in the intensive care unit. CRITICAL CARE TIME: 35 minutes. cc: Howard Red MD
--- NOTE | 2019-03-23 07:52 | Diag Imaging Result Doc PS360 ---
EXAM: CT HEAD W/O CONTRAST 03/23/2019 HISTORY: Stroke symptoms TECHNIQUE: This exam was performed using automated exposure control, adjustment of mA or kV according to patient size, and/or use of iterative reconstruction technique. COMMENT: There is patchy hypodensity in the white matter in the centrum semiovale ovale region on the left and to a lesser extent in the periventricular white matter of both frontal lobes. This appearance was also present on 03/21/2019. There is no evidence of mass effect, bleed, or abnormal extra-axial fluid collection. The visualized paranasal sinuses are clear. The calvarium is intact. IMPRESSION: Chronic ischemic microvascular changes. No apparent change since 03/21/2019. Electronically signed by Tobias Melo 03/23/2019 7:50 AM
[2019-03-23] MEDS: KLONOPIN PO PRN ×2 (08:43→17:41)
[2019-03-23] MEDS: LACTULOSE PO SCH (08:43)
[2019-03-23] MEDS: NS 1,000 ML IV SCH ×2 (08:43→22:10)
[2019-03-23] MEDS: FERROUS SULFATE PO SCH (08:44)
[2019-03-23] MEDS: ASPIRIN PO SCH (08:44)
[2019-03-23] MEDS: TYLENOL PO PRN ×2 (08:44→16:51)
[2019-03-23] MEDS: SYNTHROID PO SCH (08:44)
[2019-03-23] MEDS: PLAVIX PO SCH (08:44)
[2019-03-23] MEDS: LINZESS PO SCH (08:44)
[2019-03-23] MEDS: LANTUS INSULIN SUBQ SCH ×2 (09:12→20:29)
[2019-03-23] MEDS ORDERED: VOLTAREN 1% GEL TOP SCH (13:00)
[2019-03-23] MEDS: APRESOLINE IV PRN (15:10)
[2019-03-23] MEDS: ROCEPHIN 1 GM in NS 50 ML IV SCH (17:14)
[2019-03-23] MEDS ORDERED: LABETALOL IV ONE (17:30)
[2019-03-23] MEDS: REQUIP PO SCH (20:29)
[2019-03-23] MEDS: LIPITOR PO SCH (20:29)
[2019-03-23] MEDS: SEROQUEL PO SCH (20:29)
[2019-03-24] MEDS ORDERED: NS 250 ML IV ONE (00:18)
[2019-03-24] MEDS: TYLENOL PO PRN ×3 (00:49→17:10)
[2019-03-24] MEDS: KLONOPIN PO PRN ×3 (00:49→17:10)
[2019-03-24] MEDS: HUMALOG SUBQ SCH ×4 (06:07→20:57)
[2019-03-24] MEDS: PROTONIX PO SCH (06:27)
[2019-03-24 08:16] LABS: BASO# 0.02 X1000 (0.0-0.2); BASO% 0.2 % (0.0-0.8); EOS# 0.17 X1000 (0.0-0.7); EOS% 1.9 % (0.0-10.0); HEMOGLOBIN 9.8 g/dL (12.0-16.0); IMM GRAN# 0.02 X1000 (0.0-0.04); IMM GRAN% 0.2 % (0.0-0.5); LYMPH# 1.07 X1000 (1.2-3.4); LYMPH% 11.9 % (20.5-51.1); MCH 26.2 PG (27-31); MCHC 30.6 g/dL (33-37); MCV 85.6 FL (81-99); MONO# 1.43 X1000 (0.11-0.59); MONO% 15.9 % (1.7-9.3); MPV 9.5 FL (7.4-10.4); NEUT# 6.31 X1000 (1.4-6.5); NEUT% 69.9 % (42.2-75.2); PLT 267 X1000 (130-400); RBC 3.74 XMIL (4.2-5.4); RDW 15.3 % (11.5-14.5); WBC 9.02 X1000 (4.8-10.8)
[2019-03-24 08:27] LABS: AGAP 14; ALB/GLOB RATIO 1.1; ALBUMIN 3.2 g/dL (3.5-5.0); ALKALINE PHOSPHATASE 118 U/L (32-104); BUN 10 mg/dL (8-22); CALCIUM 7.9 mg/dL (8.8-10.2); CHLORIDE 93 mmol/L (98-107); COSMO 273; CREATININE 0.4 mg/dL (0.5-0.9); ESTIMATED GFR > 60; GLUCOSE 105 mg/dL (70-104); GOT 13 U/L (10-30); GPT 6 U/L (10-36); POTASSIUM 3.3 mmol/L (3.5-5.1); SODIUM 137 mmol/L (136-145); TCO2 30 mmol/L (25-35); TOTAL BILIRUBIN 0.84 mg/dL (0.20-1.00)
[2019-03-24] MEDS: NS 1,000 ML IV SCH ×2 (09:05→11:49)
[2019-03-24] MEDS: PLAVIX PO SCH (09:24)
[2019-03-24] MEDS: SYNTHROID PO SCH (09:24)
[2019-03-24] MEDS: LINZESS PO SCH (09:24)
[2019-03-24] MEDS: TOPROL XL PO SCH (09:24)
[2019-03-24] MEDS: ASPIRIN PO SCH (09:25)
[2019-03-24] MEDS: LACTULOSE PO SCH (09:25)
[2019-03-24] MEDS: LANTUS INSULIN SUBQ SCH ×2 (09:25→20:55)
[2019-03-24] MEDS: FERROUS SULFATE PO SCH (09:25)
[2019-03-24] MEDS: COZAAR PO SCH ×3 (09:25→12:16)
[2019-03-24] MEDS ORDERED: BLISTEX MEDICATED BERRY LIP BALM TOP PRN (10:20)
[2019-03-24] MEDS ORDERED: KEFZOL 1 GM/D5W 1 GM/50 ML IVPB IV SCH (12:30)
--- NOTE | 2019-03-24 12:50 | PROGRESS NOTE ---
DATE: 03/24/2019 SUBJECTIVE: I saw Ms. Resendiz this morning in the ICU. The daughter was at the bedside at the time of the encounter. I understand that Ms. Resendiz had one of the episodes where she became mute, could not talk, associated with right-sided weakness. She was brought into the ICU, presumably for code brain. This morning, she refers to be doing a lot better. She is able to talk. She is moving her right upper extremity well. The right lower extremity seems to be slightly impaired in movement, but otherwise she is doing well. OBJECTIVE: Vital Signs: Blood pressure is currently 220/114, pulse is 78, respirations 20, temperature is 97.2. General: Ms. Resendiz is an 89-year-old female. She is in bed. No distress. HEENT: Mucosa is pink and moist. Anicteric. Acyanotic. Neck: Supple. Chest: Good air entry bilaterally. There were no crepitations or rhonchi. Cardiovascular: Regular rate and rhythm. There were no murmurs, no rubs, no gallops. GI: Abdomen was soft, nontender. Bowel sounds were present. Extremities: No pedal edema. BARREL LOADER: The patient is awake, alert, oriented to person and to place and time. 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 The power on the left side seems to be 5/5. The power on the right side, upper is about 4-, and the lower is about 3+. The patient does have remarkable weakness in the foot itself. Her reflexes seem to be fairly unremarkable, and her sensation is also unremarkable. LABORATORY DATA: CBC shows normocytic anemia. Chemistry is within normal range, except for mild low potassium. So far, the urine culture had shown Enterococcus faecalis, which is vancomycin sensitive. ASSESSMENT: 1. Recurrent episode of right-sided weakness with almost immediate recovery, associated with inability to talk. At this point, Ms. Resendiz seems to be doing remarkably well. Her initial MRI was unremarkable. However, subsequent one seems to suggest a lacunar infarct in the left parietal area, which could as well explain her weakness. However, it would not explain the fact that it has been recurrent. We are pending Neurology evaluation. 2. Vancomycin-sensitive Enterococcus faecalis urinary tract infection. The patient was started on ceftriaxone. I have changed this to Vancomycin. Ms. Resendiz refers to be very allergic to penicillin, so we will not use ampicillin. 3. Dyslipidemia. I have gone up on her Lipitor. 4. Diabetes mellitus, currently controlled. 5. Chronic kidney disease stage IIIA. Creatinine has actually normalized today. 6. Hypertension. There was a recommendation from Dr. Hannah to keep Ms. Resendiz' blood pressure slightly elevated to allow adequate perfusion to the brain. However, I think she is out of the 48-hour window, so we are going to start her back on her losartan, and continue titrating her blood pressure. Today, Ms. Resendiz is doing remarkably stable. We will start her back on her blood pressure medications. I have also ordered an electroencephalogram just to make sure we are not dealing with subclinical convulsive seizures. We are also pending Neurology evaluation today. I have discontinue the ceftriaxone, and started Ms. Resendiz on Vancomycin for her vancomycin-sensitive Enterococcus urinary tract infection. cc: Jayden Merino MD MTDD
[2019-03-24] MEDS ORDERED: VANCOMYCIN IV PER PHARMACY MISC SCH (13:00)
[2019-03-24] MEDS ORDERED: VANCOMYCIN 1,850 MG in NS 500 ML IV ONE (18:00)
--- NOTE | 2019-03-24 20:40 | CONSULTATION ---
DATE OF CONSULTATION: 03/24/2019 REASON FOR CONSULT: Stroke. HISTORY OF PRESENT ILLNESS: This is an 89-year-old, right-handed, female who was admitted on 03/19/2019 with symptoms concerning for stroke. History is from the patient and attentive daughter. Apparently, on Sunday, the patient was not feeling completely well. On Sunday morning, she woke up and still did not fill completely normal, walked to sit on the sofa and then could not get up for 2 hours. She had right arm and leg weakness. She eventually was able to phone for assistance and apparently did not have speech difficulty then. Symptoms lasted several hours, but were felt to be completely resolved the following day, on . Head CT on admission did not show acute findings, but did show moderate chronic microvascular ischemic disease in the periventricular and pontine white matter. On Sunday, she had 2 more events, one around 4 a.m. and the second around 11 a.m. She also had an event just prior to the 11 a.m. event where she became lightheaded after standing up from the toilet. She had another event Sunday and another event on Sunday. No events today. All events are similar with right-sided weakness, typically with speech disturbance, however. She describes the ability to understand spoken words, but the inability to get words out, even though she knows what she wants to say. Durations have been variable, but all have been at least several minutes. There has not been obvious witnessed seizure activity. She has no prior history of seizure or stroke or other major neurologic event. She does have a more longstanding history of difficulty with blood pressure control, with large swings in her blood pressure. This has also been associated with recurrent falls or near syncopal events. MRI of the brain showed chronic ischemic white matter changes with apparent superimposed small lacunar subacute infarcts in the left parietal white matter. CTA of the head and neck was obtained that did not show any evidence of major branch occlusion or stenosis. EEG has just been performed. PAST MEDICAL HISTORY: 1. Reported TIA remotely. 2. Reported dementia. 3. Type 2 diabetes. 4. Chronic kidney disease. 5. Anxiety. 6. Hypertension. 7. Congestive heart failure. 8. GERD. 9. COPD. 10. 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 FAMILY HISTORY: Reviewed and noncontributory. SOCIAL HISTORY: I believe she lives alone, but she has family who check in on her and they have a camera where they can remote in and check on her. She also has an emergency button that she wears. No tobacco, alcohol, or illicits. ALLERGIES: Listed to codeine, penicillins, and sulfa. CURRENT MEDICATIONS: Reviewed in the chart: 1. Aspirin 325 mg daily. 2. Lipitor 40 mg daily. 3. Clonazepam 0.5 q.8 p.r.n. anxiety, given today at 9:40. 4. Plavix 75 mg daily. 5. She is on vancomycin. 6. Seroquel p.r.n. 7. Requip at night. REVIEW OF SYSTEMS: Balance of 12 conducted and is otherwise negative except that detailed in the HPI. PHYSICAL EXAMINATION: Vital Signs: Afebrile, blood pressure 151/76 on admission, current 202/103, pulse 60's to 70s, respirations 21, oxygen saturation 98% on nasal cannula. Ms. Resendiz is supine in bed with head of bed elevated. She is awake, alert, fully oriented. She names and repeats without difficulty. There is a little bit of hesitation with her speech, but this appears to be relatively mild and without any paraphasic errors. No significant dysarthria. She follows simple and complex commands. Left/right digit distinction preserved. Right pupil is 3 mm, round and reactive to bright light. Left eye is clouded over. Gaze is conjugate and forward. She has full extraocular movements with the exception of some bilaterally limited upgaze. No obvious visual field deficit on confrontational testing. She can hear. There is subtle flattening of the right nasolabial fold with good activation. Facial sensation reported intact. Tongue is midline. Palate elevates symmetrically. Shoulder shrug is full. Motor exam: There is subtle pronation of the right arm extended. Power is preserved in the left arm and leg. On the right, power is preserved with the following exceptions: Deltoid and triceps 4/5. Polygraph Technician strength is mildly weak compared to the left. Knee flexion and extension 4/5. Dorsiflexion and plantar flexion 4/5. Reflexes are diminished throughout, symmetric. No clonus. Plantar response is mute. She performs [id number] better on the left than with the right hand. DIAGNOSTICS: As per above. The MRI was personally reviewed. Echocardiogram: There is no mention of any visualized clot or thrombus. Labs are reviewed in the chart. A1c of 6.4. Normal platelets. LDL 97, HDL 69. Enterococcus faecalis in the urine. ASSESSMENT AND PLAN: 1. Small lacunar infarctions within the left parietal white matter region. 2. Mild right hemiparesis. There have been recurrent events as detailed above during this hospitalization of uncertain etiology. CTA of the head and neck did not show evidence of major branch occlusion or stenosis. EEG has just been performed to look for evidence of seizure, and I will review that. Otherwise, continue with aspirin and Plavix and statin therapy. In light of the recurrent events, I would continue to monitor her blood pressure closely and avoid hypotension during this time. Limit sedating medications as able. Seizure precautions Thank you for the consultation. cc: Laureen Arroyo MD MTDD
[2019-03-24] MEDS: LIPITOR PO SCH (20:57)
[2019-03-24] MEDS: REQUIP PO SCH (20:57)
[2019-03-24] MEDS: SEROQUEL PO SCH (20:57)
[2019-03-25] MEDS: NS 1,000 ML IV SCH (00:07)
[2019-03-25] MEDS: TYLENOL PO PRN ×3 (01:13→17:12)
[2019-03-25] MEDS: KLONOPIN PO PRN ×3 (01:13→17:12)
[2019-03-25] MEDS: HUMALOG SUBQ SCH ×4 (06:17→20:47)
[2019-03-25] MEDS: PROTONIX PO SCH (06:33)
[2019-03-25] MEDS: LINZESS PO SCH ×2 (06:33→06:34)
[2019-03-25 07:25] LABS: BASO# 0.03 X1000 (0.0-0.2); BASO% 0.4 % (0.0-0.8); EOS# 0.57 X1000 (0.0-0.7); EOS% 6.7 % (0.0-10.0); HEMOGLOBIN 11.2 g/dL (12.0-16.0); IMM GRAN# 0.03 X1000 (0.0-0.04); IMM GRAN% 0.4 % (0.0-0.5); LYMPH# 2.97 X1000 (1.2-3.4); LYMPH% 34.9 % (20.5-51.1); MCH 28.1 PG (27-31); MCV 87.7 FL (81-99); MONO# 0.84 X1000 (0.11-0.59); MONO% 9.9 % (1.7-9.3); MPV 8.5 FL (7.4-10.4); NEUT# 4.08 X1000 (1.4-6.5); NEUT% 47.7 % (42.2-75.2); PLT 251 X1000 (130-400); RBC 3.99 XMIL (4.2-5.4); RDW 13.2 % (11.5-14.5); WBC 8.52 X1000 (4.8-10.8)
[2019-03-25 08:17] LABS: ALBUMIN 2.6 g/dL (3.5-5.0); CALCIUM 8.6 mg/dL (8.8-10.2); CREATININE 1.3 mg/dL (0.5-0.9); PHOSPHORUS 3.5 mg/dL (2.7-4.5)
[2019-03-25 08:25] LABS: POTASSIUM 4.5 mmol/L (3.5-5.1)
[2019-03-25] MEDS: PLAVIX PO SCH (08:32)
[2019-03-25] MEDS: SYNTHROID PO SCH (08:32)
[2019-03-25] MEDS: FERROUS SULFATE PO SCH (08:32)
[2019-03-25] MEDS: TOPROL XL PO SCH (08:33)
[2019-03-25] MEDS: COZAAR PO SCH (08:33)
[2019-03-25] MEDS: ASPIRIN PO SCH (08:33)
[2019-03-25] MEDS: LANTUS INSULIN SUBQ SCH ×2 (08:34→20:33)
[2019-03-25] MEDS: LACTULOSE PO SCH (08:36)
--- NOTE | 2019-03-25 15:02 | EEG REPORT ---
DATE: 03/24/2019 REFERRING: Dr. Merino. ASSET PROTECTION OFFICER: Naomi Fonseca. BACKGROUND INFORMATION AND TECHNIQUE: This is a digitally recorded portable routine EEG with video. HISTORY: This is an 89-year-old female with recent stroke and recurrent symptoms. An EEG is ordered to detect evidence of seizures. Medications include clonazepam and Seroquel. EEG FINDINGS: A moderately well-formed 9 to 10 Hz posterior dominant alpha rhythm is seen symmetrically in the occipital regions and attenuates with eye opening. The anterior background at maximal alertness consists of mixed alpha and beta range frequencies. No definite persistent focal slowing. No epileptiform discharges. No seizures. Hyperventilation was not performed. Photic stimulation induces a normal driving response. The patient becomes drowsy and briefly enters into stage II sleep. The EKG demonstrates regular intervals. IMPRESSION AND CLINICAL CORRELATION: Normal routine EEG in the awake, drowsy, and sleep states. Of note, a normal EEG does not rule out epilepsy. Clinical correlation is recommended. cc: MD Jayden Rincon MD
--- NOTE | 2019-03-25 15:55 | PROGRESS NOTE ---
DATE: 03/25/2019 SUBJECTIVE: Today Ms. Resendiz referred to be doing well. She denied any new complaints and she certainly does not have any new neurological deficits. According to her, she did not have any more of the spells where she could not talk and she could not move her extremities yesterday. The daughter was at the bedside at the time of the encounter. OBJECTIVE: Vital signs: Blood pressure is 185/109, pulse is 79, respiration is 18, temperature is 97.8 degrees. General: Ms. Resendiz is an 89-year-old elderly female. She was in bed in no distress. HEENT: Mucosa was pink and moist. Anicteric. Acyanotic. Neck: Supple. Chest: Clear to auscultation. No crepitations. No rhonchi. Cardiovascular: Regular rate and rhythm. There was no murmurs, no rubs, no gallops. GI/Abdomen: Soft, nontender. Bowel sounds present. FABRIC PATTERN GRADER: Patient was awake, alert and oriented. Cranial nerves were unremarkable. She still seems to have some mild difficulty moving the right foot, but she is able to lift the entire right lower extremity against gravity. Left side is completely normal. LABORATORY DATA: CBC is unremarkable. Chemistry also shows sodium of 135, creatinine is 1.2. Rest of chemistry is unremarkable. CURRENT MEDICATIONS: Have all been reviewed. ASSESSMENT: 1. Recurrent episode of right-side weakness with almost immediate recovery. 2. Left lacunar parietal infarct. 3. Vancomycin-sensitive Enterococci urinary tract infection. Patient is on vancomycin for 3 days. 4. Dyslipidemia. 5. Diabetes mellitus. 6. Chronic kidney disease stage IIIA, controlled. 7. Hypertension, improving with current regimen. We have also added amlodipine for better blood pressure control. PLAN: So in general, I think Ms. Resendiz is doing well. She has not had any more episode of not being able to talk and remarkable weakness. Her EEG seems to be unremarkable. She is being treated for UTI. We will transfer her from the ICU to the medical floor. cc: Jayden Merino MD
[2019-03-25] MEDS: VANCOMYCIN 800 MG in NS 250 ML IV SCH (17:13)
--- NOTE | 2019-03-25 18:19 | PROGRESS NOTE ---
DATE: 03/25/2019 SUBJECTIVE: No major overnight events. The patient denies having recurrence of symptoms overnight. She has no specific complaints. OBJECTIVE: Vital signs: She is currently afebrile. Her blood pressure currently is 187/125, pulse 78. General: Ms. Resendiz is supine in bed, awake. Neurologic: Alert and oriented. She follows commands consistently. She is spontaneous. A little bit slow with her speech. Right pupil 3 mm, round, and reactive bright light. Left eye is clouded. Gaze is conjugate. Full ocular movements with the exception of limited upgaze bilaterally. There continues subtle flattening of the right nasolabial fold. Strength testing is unchanged from yesterday, though her dorsi and plantar flexion I believe is really about a 3/5 and was like that yesterday as well. DIAGNOSTICS: A routine EEG was personally reviewed and was normal in the awake, drowsy, and sleep states. LABS: Reviewed in the chart. ASSESSMENT AND PLAN: 1. Small lacunar infarctions within the left parietal white matter region. 2. Mild right hemiparesis. There has not been another recurrent event of acute onset focal weakness as she has had before. The EEG did not show an increased propensity to seizure. Again CTA of the head and neck did not show evidence of major branch occlusion or stenosis. I would continue with the current plan. Continue following clinically and see how she does. cc: Laureen Arroyo MD
[2019-03-25] MEDS: NORVASC PO SCH (20:20)
[2019-03-25] MEDS: SEROQUEL PO SCH (20:20)
[2019-03-25] MEDS: LIPITOR PO SCH (20:20)
[2019-03-25] MEDS: REQUIP PO SCH (20:29)
[2019-03-25] MEDS ORDERED: ZOLOFT PO SCH (21:00)
[2019-03-26] MEDS: TYLENOL PO PRN (02:05)
[2019-03-26] MEDS: KLONOPIN PO PRN ×3 (02:05→18:30)
[2019-03-26 06:08] LABS: ALBUMIN 3.1 g/dL (3.5-5.0); CALCIUM 8.2 mg/dL (8.8-10.2); CREATININE 1.4 mg/dL (0.5-0.9); PHOSPHORUS 3.4 mg/dL (2.7-4.5)
[2019-03-26] MEDS: LINZESS PO SCH (06:30)
[2019-03-26] MEDS: PROTONIX PO SCH (06:30)
[2019-03-26] MEDS: HUMALOG SUBQ SCH ×4 (06:31→20:50)
[2019-03-26] MEDS: FERROUS SULFATE PO SCH (08:00)
[2019-03-26] MEDS: ASPIRIN PO SCH (08:00)
[2019-03-26] MEDS: COZAAR PO SCH (08:00)
[2019-03-26] MEDS: LANTUS INSULIN SUBQ SCH ×2 (08:01→20:50)
[2019-03-26] MEDS: NORVASC PO SCH ×2 (08:01→20:49)
[2019-03-26] MEDS: PLAVIX PO SCH (08:01)
[2019-03-26] MEDS: LACTULOSE PO SCH (08:01)
[2019-03-26] MEDS: SYNTHROID PO SCH (08:01)
[2019-03-26] MEDS: TOPROL XL PO SCH (08:01)
[2019-03-26] MEDS ORDERED: DULCOLAX PR ONE (08:25)
--- NOTE | 2019-03-26 08:59 | PROGRESS NOTE ---
DATE: 03/26/2019 SUBJECTIVE: This morning Ms. Resendiz refers to be doing a whole lot better. She did not have any more episodes of unable to talk. She has been tolerating her diet. She denies any chest pain. Blood pressure seems to be getting better controlled. Per the nursing staff, there were not any episode last night. OBJECTIVE: Vital signs: Blood pressure is 180/88, pulse of 67, respiration is 18, temperature 97.6 degrees. The patient is saturating 96% on room air. General: Ms. Resendiz is an 89-year-old female. She is in bed, no distress. HEENT: Mucosa is pink and moist. Anicteric. Acyanotic. Neck: Supple. Chest: Good air entry bilateral. There were no crepitations, no rhonchi. Cardiovascular: Regular rate and rhythm. There are no murmurs, no rubs, no gallops. Gastrointestinal: Abdomen is soft, nontender. Bowel sounds present, slightly hypoactive. Central nervous system: Patient is awake, alert, oriented. She does have mild weakness on the right side but power is about 4- over 5. There is a mild pronation drift on the right upper extremity. The patient is not able to plantar flex on the right nor dorsiflex. She is, however, able to lift the right lower extremity against gravity. The left side is completely normal. Sensation on the right is also intact. LABORATORY DATA: The chemistry is completely within normal range with a creatinine of 1.4, which seems to be patient's baseline. IMAGING STUDIES: No imaging studies today. CURRENT MEDICATIONS: Have all been reviewed. No changes. We have added Effexor for her anxiety disorder and also spironolactone to help with adequate blood pressure control. ASSESSMENT AND PLAN: 1. Right-sided mild hemiparesis secondary to left lacunar parietal infarct. 2. Vancomycin-sensitive enterococcus urinary tract infection. The patient is on vancomycin, today is day 3 and will be the last day. 3. Dyslipidemia. 4. Diabetes mellitus. We will continue with insulin regimen. 5. Chronic kidney disease stage IIIA. Creatinine is stable. 6. Uncontrolled hypertension. This was being allowed because of the acute stroke. However, the patient is now out of the 48 hour period window and we will start blood pressure medications for adequate blood pressure control. 7. Situational anxiety and depression disorder. Patient was using Xanax and amitriptyline for a very long time. I understand she has tried multiple medications in the past. She was under the care of a psychiatrist in [place]. However, she is now being managed just by her primary care doctor. She seems to be doing well on the Klonopin here in the hospital. She, however, refers that the Zoloft that was started yesterday does not do anything for her, she has tried it in the past, so we are changing that to Effexor. DISPOSITION: Ms. Resendiz is doing a lot better. Has not had any more neurological deficits. She is on both aspirin and Plavix and Lipitor as well as her blood pressure medications. She is remarkably stable. Has not had any more neurological events. She has been transferred to the medical floor. We are going to take the Mardigal catheter out. Physical Therapy is pending evaluation today and we will hopefully discharge her tomorrow to [facility]. cc: Jayden Merino MD
[2019-03-26] MEDS: ALDACTONE PO SCH (10:00)
[2019-03-26] MEDS: EFFEXOR PO SCH (10:00)
--- NOTE | 2019-03-26 11:53 | PROGRESS NOTE ---
DATE: 03/26/2019 Ms. Resendiz presented with right-sided weakness and imaging evidence of left parietal subcortical infarction. The deficit progressed after admission and MRI showed new restricted diffusion changes in the left hemisphere. She had transient dysphasia which has resolved. She reports weakness in the right foot as the most prominent deficit now. On exam, she is awake and alert, oriented, and appropriate. Speech is not dysarthric. She did well on brief bedside language testing. I can overcome the right deltoid 4/5 and wrist extensor4/5, 4+/5 at the right iliopsoas, and 2/5 at the right anterior tibialis. Tone is increased in the right arm. She did rapid alternating movements better with the left hand than with the right. She did well on [id number] testing bilaterally. I did not test her gait. She has good proprioception at the great toe MTP joint bilaterally. Plantar response is flexor with a good bit of withdrawal on the left and equivocal on the right. Visual chapman are full on confrontational testing. Neck is supple. IMPRESSION: Stable neurologic deficit with recent dominant left hemisphere ischemic event. She might get some benefit with AFO for her right footdrop. I believe she will be a good candidate for aggressive rehab when medically stable. Blood pressures continue elevated and I think those can be treated more aggressively now in light of the negative CTA findings and stable clinical course over the last few days. Thanks for asking neurology to see Ms. Resendiz. cc: MD BRADLEY Milton III
[2019-03-26] MEDS: VANCOMYCIN 800 MG in NS 250 ML IV SCH (18:30)
[2019-03-26] MEDS: SEROQUEL PO SCH (20:48)
[2019-03-26] MEDS: CATAPRES PO PRN (20:48)
[2019-03-26] MEDS: REQUIP PO SCH (20:48)
[2019-03-26] MEDS: LIPITOR PO SCH (20:48)
[2019-03-27] MEDS ORDERED: NS 250 ML IV ONE (04:17)
[2019-03-27] MEDS ORDERED: NS 250 ML ONE (04:39)
[2019-03-27] MEDS: HUMALOG SUBQ SCH ×3 (06:25→21:22)
[2019-03-27 07:29] LABS: HEMATOCRIT 32.8 % (37.0-47.0); HEMOGLOBIN 10.6 g/dL (12.0-16.0); MCH 27.7 PG (27-31); MCHC 32.3 g/dL (33-37); MCV 85.6 FL (81-99); MPV 8.6 FL (7.4-10.4); RBC 3.83 XMIL (4.2-5.4); RDW 12.9 % (11.5-14.5); WBC 8.97 X1000 (4.8-10.8)
[2019-03-27] MEDS: PROTONIX PO SCH (07:40)
[2019-03-27] MEDS: LINZESS PO SCH (07:41)
[2019-03-27 07:56] LABS: ALBUMIN 2.9 g/dL (3.5-5.0); CALCIUM 8.6 mg/dL (8.8-10.2); CREATININE 1.7 mg/dL (0.5-0.9); PHOSPHORUS 3.8 mg/dL (2.7-4.5); POTASSIUM 4.1 mmol/L (3.5-5.1)
[2019-03-27] MEDS: PLAVIX PO SCH (09:50)
[2019-03-27] MEDS: TOPROL XL PO SCH (09:50)
[2019-03-27] MEDS: ALDACTONE PO SCH (09:50)
[2019-03-27] MEDS: KLONOPIN PO PRN ×2 (09:50→19:46)
[2019-03-27] MEDS: LANTUS INSULIN SUBQ SCH ×2 (09:51→21:26)
[2019-03-27] MEDS: ASPIRIN PO SCH (09:51)
[2019-03-27] MEDS: SYNTHROID PO SCH (09:51)
[2019-03-27] MEDS: LACTULOSE PO SCH (09:51)
[2019-03-27] MEDS: NORVASC PO SCH (09:51)
[2019-03-27] MEDS: COZAAR PO SCH (09:51)
[2019-03-27] MEDS: EFFEXOR PO SCH (09:51)
[2019-03-27] MEDS: FERROUS SULFATE PO SCH (09:51)
[2019-03-27] MEDS ORDERED: NS 1,000 ML IV SCH (11:00)
--- NOTE | 2019-03-27 11:20 | PROGRESS NOTE ---
DATE: 03/27/2019 SUBJECTIVE: This morning, Ms. Resendiz referred that she cannot talk. I understand her blood pressure had gone down somewhere around midnight. She was given a bolus of fluid and that got better. However, a couple hours later, around 3, it is documented that she referred not being able to talk and not been able to move the right side. According to the nurses, that got better but then at about 5 this morning, she had another episode where she says she could not talk and could not move the right side. This morning, she remains the same. She said she cannot talk and cannot move the right side. However, when you stimulate her right foot bottom, she is able to move the right lower extremity very actively and she will shout that it hurts. I did evaluate her right in the presence of her daughter. OBJECTIVE: Vital Signs: Currently, blood pressure is 179/81, pulse of 60, respirations are 17, temperature is 98.9 degrees. General Examination: Ms. Resendiz is an 89-year-old, elderly, female. She is in bed. No distress. HEENT: Mucosa is pink and moist. Anicteric. Acyanotic. Neck: Supple. Chest: Good air entry bilaterally. There were no crepitations. No rhonchi. Cardiovascular: Regular rate and rhythm. No murmurs, no rubs, no gallops. GI: Abdomen was soft, nontender. Bowel sounds present. Extremities: There was no pedal edema. WANIGAN CLERK: The patient is awake, alert. Pupils are equal in size bilaterally with good reflex. There are not any facial nerve pulses. The patient has the right side not mobile. The left side is mobile upon command. However, when you stimulate the foot bottom on the right side, she is able to move the extremity against gravity. Yesterday, she was not able to even move the toes. This morning, she was able to move the toes upon painful stimulation and when I did stimulate painfully, she did shout that it was hurting. Laboratory Data: CBC is within normal range except for normocytic anemia. Chemistry is also reviewed. Sodium is 135, creatinine is 1.7, seems to be patient's baseline. The patient's medications have all been reviewed. ASSESSMENT: 1. Right side hemiparesis, presumably due to left lacunar parietal infarct. The patient's weakness has become even worse this morning and she also remains, for the most part, aphasic. As I said, when she is painfully stimulated, she moves the lower extremity and she shouts that it hurts. Unsure of progression of her previous stroke. We are going to repeat the MRI this morning and will be pending neurology to evaluate her today. 2. Vancomycin-sensitive enterococcus urinary tract infection. The patient has been treated fully with vancomycin. This has been discontinued. 3. Dyslipidemia, stable. 4. Diabetes mellitus, controlled. 5. Chronic kidney disease stage 3A. Creatinine is up to about 1.7. We are going to continue monitoring this. 6. Uncontrolled hypertension. As I said, the patient had a reading of extremely low pressure at midnight. She was given a bolus of fluid. That has normalized. I have discontinue the as needed clonidine. 7. Situational anxiety and depression disorder. The patient used to be seeing a psychiatrist in the past, I am told in [place], and she was on amitriptyline and Xanax for a very, very long time. Over here, she has just seen her primary care doctor, Dr. Morin. I am not quite sure if her recurrent neurological symptoms is any form of psychiatric manifestations. We will get the MRI to rule out any organic cause for now. cc: Jayden Merino MD MTDPia
--- NOTE | 2019-03-27 14:36 | PROGRESS NOTE ---
DATE: 03/27/2019 SUBJECTIVE: Ms Resendiz has reported increased weakness in the right limbs since very early this morning or overnight. She seems to have had increased difficulty communicating with speech. There was not a period of altered awareness or unconsciousness noted. Vital sign record shows systolic blood pressure recorded 96 at midnight, otherwise systolic blood pressure is 150s-200s over the last 24 hours. DATA: Prior workup includes CT angiogram of the head and neck on 03/21/2019 showing no evidence of major vessel or branch occlusion or significant stenosis. Echocardiogram 03/20/2019 showed no source of embolus. PHYSICAL EXAMINATION: On exam now, she appears awake and alert, but somewhat frustrated and disappointed and possibly this limits her full attention and effort on motor testing. She continues to demonstrate good power in the left limbs. I can overcome the right deltoid grading 3/5, right iliopsoas 3/5, right anterior tibialis 1/5, right gastrocnemius 2/5. Overall, this seems to be a little bit weaker than yesterday. Tone continues increased in the right limbs. She was less attentive to visual field testing today and I could not find a reproducible deficit in vision. She followed some simple commands, but did not follow multistep commands or commands requiring right/left distinction as well as yesterday. I am not certain that she has a new language deficit and some of her responses seem more consistent with frustration and inattention. IMPRESSION: Possibly increased right hemiparesis and possibly increased dysphasia. She had recent dominant left hemisphere ischemic infarction documented on imaging. We need to repeat brain MRI and further plans will depend on that report. If we see definite evidence of new infarction, we might need to consider repeating CT angiogram or obtain MRA. I do not see carotid ultrasound reported this admission and if that has not been done, we might consider that, although it will not help much with the intracranial circulation assessment. I would continue treating blood pressure cautiously, continue statin and clopidogrel, continue treating blood sugar aggressively. Further plans will depend on her clinical course and on the MRI report. Thanks for asking Neurology to see Ms. Resendiz. cc: MD BRADLEY Milton III
--- NOTE | 2019-03-27 14:42 | Diag Imaging Result Doc PS360 ---
EXAM: MRI BRAIN W/O CONTRAST HISTORY: acute aphasia TECHNIQUE: MRI brain without contrast. Contrast not given due to GFR. COMPARISON: 03/21/2019 FINDINGS: Interval progression in the previously described left infarct. This is in the distribution of the middle cerebral artery. There is also a recent lacunar infarct near the sylvian fissure on the left. There are chronic microvascular ischemic changes. No midline shift. No hydrocephalus. IMPRESSION: Interval enlargement in the recent left middle cerebral artery infarct. Electronically signed by Chip Truong 03/27/2019 2:40 PM
--- NOTE | 2019-03-27 15:43 | PROGRESS NOTE ---
DATE: 03/27/2019 ADDENDUM: About an hour ago I went back to re-evaluate Ms. Resendiz because of her neurological symptoms early on found on physical exams. This afternoon when I went to see her she remained unable to lift the right upper extremity as well as the right lower extremity. On Babinski, the right lower extremity would slightly move in pronation. The right upper extremity fingers were able to move some. At that point, MRI report has not been up yet. I was able to re-evaluate her again about an hour later and she remained the same. The MRI report is still not up, but the image is up and it seems to suggest that there is progression of her old parietal infarct. It looks like this is in the left mid cerebral artery territory. I communicated my findings to Dr. Mcrae. I have also reached out to [facility]. I spoke with Dr. Pedersen, who is the neurologist on-call today, and he thinks that this is progression of the old stroke and it is probably worsened because of the blood pressure that got low, so we should keep the blood pressure up, keep the head of the bed flat, and hydrate if needed; keep the blood pressure 220/120. He also did say that Ms. Resendiz at this point is not a candidate for tPA and is not candidate for thrombectomy either. I spoke with Dr. Forrest in [facility] who also told me that Ms. Resendiz will not receive any different care, if she should even go to him and that we should continue managing her here, keeping the blood pressure up and keep a very good eye on her neurological status. I went back and notified Ms. Resendiz about my findings on the MRI scan and about the recommendations from both Dr. Pedersen and Dr. Forrest. For now we will transfer Ms. Resendiz to the ICU. We will keep the head of the bed flat. We will put her on fluids, normal saline at 100 mL/h for 24 hours. We will also keep her blood pressures above 220/120 at least for 24 hours and re-evaluate her in the morning. As I said, I have discussed the plan also with Dr. Mcrae. At this point, Dr. Mcrae also recommends that maybe tomorrow we should get an MRA of the neck and the head. Ms Resendiz prefers Dr Gardiner to assume her care. I have communicated that to Dr. Gardiner. CRITICAL CARE TIME: 45 minutes. cc: Jayden Merino MD MTDD
[2019-03-27] MEDS: NS 1,000 ML IV SCH ×2 (16:49→17:37)
[2019-03-27] MEDS: TYLENOL PO PRN (19:48)
[2019-03-27] MEDS: SEROQUEL PO SCH (21:22)
[2019-03-27] MEDS: LIPITOR PO SCH (21:22)
[2019-03-27] MEDS: REQUIP PO SCH (21:22)
[2019-03-28] MEDS: NS 1,000 ML IV SCH ×3 (00:09→16:00)
[2019-03-28] MEDS: PROTONIX PO SCH (06:50)
[2019-03-28] MEDS: HUMALOG SUBQ SCH ×4 (06:54→21:46)
[2019-03-28] MEDS: LACTULOSE PO SCH (08:08)
[2019-03-28] MEDS: PLAVIX PO SCH (08:09)
[2019-03-28] MEDS: ASPIRIN PO SCH (08:09)
[2019-03-28] MEDS: LINZESS PO SCH (08:09)
[2019-03-28] MEDS: FERROUS SULFATE PO SCH (08:09)
[2019-03-28] MEDS: SYNTHROID PO SCH (08:09)
[2019-03-28] MEDS: EFFEXOR PO SCH (08:10)
[2019-03-28] MEDS: LANTUS INSULIN SUBQ SCH ×2 (08:10→21:46)
[2019-03-28] MEDS: DULCOLAX PR PRN (08:38)
--- NOTE | 2019-03-28 09:10 | PROGRESS NOTE ---
DATE: 03/28/2019 SUBJECTIVE: The patient seems to be resting comfortably in bed. She is able to talk. She is able to move her right hand and the strength on the right hand is around 3 to 4/5, but she is not able to lift the arm, she cannot move the right lower extremity but the sensation is intact. We repeated a new brain MRI that showed interval enlargement in the recent left middle cerebral artery infarct. I will allow this patient to keep the blood pressure elevated. Dr. Merino yesterday communicated with [facility] and also with [facility], and basically we are treating this patient medically, also Neurology Department is on board. They will check on the MRI today and I will wait for more recommendations. OBJECTIVE: Vital Signs: Temperature 96.7 degrees, pulse 66, respiratory rate 16, blood pressure was 200/91, oxygen saturation 98 on room air. HEENT: Head normocephalic, no trauma. PERRLA in the right eye. The left eye has a chronic lesion looks like a cataract. Neck: Supple no JVD. Central trachea. Chest: Clear to auscultation. No wheezing. No rales. Abdomen: Soft, nontender, nondistended. No hepatosplenomegaly. Extremities: No edema, no clubbing, no cyanosis. Neurological: The patient is alert. She is oriented. She does have right-sided weakness upper extremity at the level of the hand. The strength is around 3 to 4/5, but she cannot lift the arm from the bed, maybe strength in the proximal muscles is around 1/5, and right lower extremity is weak, she cannot move this at all. Sensation is intact. She is following commands. LABORATORY: Pending BMP. Glucose level 114. ASSESSMENT AND PLAN: 1. Acute/subacute stroke left parietal white matter. It looks like she has been having on and off episodes of more weakness on the right side and inability to talk. Yesterday she was placed in the ICU because of that. The previous practitioner communicated with [facility] and also communicated with [facility], and basically we are going to continue with medical management here. No aggressive intervention. Neurology Department on board. We did an MRI that showed interval enlargement in the recent left middle cerebral artery infarct. We will allow permissive hypertension. We will continue with the IV fluids. We will monitor this patient closely. 2. Vancomycin sensitive Enterococcus urinary tract infection, already treated. Antibiotics has been discontinued. 3. Dyslipidemia continue with same management. 4. Diabetes, controlled. 5. Chronic kidney disease stage 3 A, continue to monitor, pending BMP today. She is on IV fluids. 6. Uncontrolled hypertension. Apparently, she had a low blood pressure yesterday at midnight. She was given a bolus of fluid. They know the blood pressure normalized and now the blood pressure is high. We will try to keep it high for the next day or so. We need to avoid hypotension. 7. Situational anxiety and depression. Apparently, she has been seen by a psychiatrist before at [place], we will continue with same management. 8. Constipation continue MiraLAX and lactulose. CRITICAL CARE TIME: 30 minutes. cc: Howard Red MD
[2019-03-28 10:15] LABS: AGAP 16; BUN 22 mg/dL (8-22); CALCIUM 9.1 mg/dL (8.8-10.2); CHLORIDE 104 mmol/L (98-107); COSMO 275; CREATININE 1.3 mg/dL (0.5-0.9); GLUCOSE 132 mg/dL (70-104); POTASSIUM 4.9 mmol/L (3.5-5.1); SODIUM 135 mmol/L (136-145); TCO2 15 mmol/L (25-35)
[2019-03-28] MEDS: KLONOPIN PO PRN ×2 (10:22→19:01)
--- NOTE | 2019-03-28 12:36 | PROGRESS NOTE ---
DATE: 03/28/2019 SUBJECTIVE: Ms Resendiz has not had any further neurologic deterioration. Blood pressures have been increased substantially in the last 24 hours. Her follow up MRI showed new areas of restricted diffusion in the left hemisphere adjacent to the area of recent infarction. OBJECTIVE: On exam, Ms. Resendiz is awake, alert, attentive. She is more appropriate today. Speech is more brisk. She followed commands requiring right/left distinction and digit distinction very well. She did well with bedside naming tasks. She demonstrated better strength in the right arm this morning than yesterday morning. She was able to bring her right finger to touch her nose today and she was not able to accomplish that yesterday. She has full visual chapman tested by confrontational finger counting. She moved the right leg purposefully and I did not examine power in that limb more thoroughly. Neck is supple. IMPRESSION: Extension of dominant left hemisphere infarction with transient increased dysphasia and transient increased right hemiparesis. She has been stable and improved over the last 24 hours. Blood pressure has been maintained. I discussed uncertain explanation for extension of infarction frankly with patient and daughter at the bedside. There is not evidence of embolic etiology. She may have had thrombotic event and the transient low blood pressure in the middle of the night prior to worsening of deficit may have been a factor. Either way, she is stable and improved now. I do not think we have to do anything urgently now. We might consider further brain imaging electively. We might also consider repeating CT angiogram or performing brain MRA. I do not think anything would change her management right now. We need to continue hydration and maintain blood pressure. Thanks for asking Neurology to see Ms. Resendiz. cc: MD BRADLEY Milton III
[2019-03-28] MEDS: VOLTAREN 1% GEL TOP PRN (14:53)
[2019-03-28] MEDS: TYLENOL PO PRN (19:02)
[2019-03-28] MEDS: LIPITOR PO SCH (21:47)
[2019-03-28] MEDS: SEROQUEL PO SCH (21:47)
[2019-03-28] MEDS: REQUIP PO SCH (21:47)
[2019-03-29] MEDS: NS 1,000 ML IV SCH ×2 (03:00→16:19)
[2019-03-29] MEDS: LINZESS PO SCH ×2 (05:42→06:33)
[2019-03-29] MEDS: PROTONIX PO SCH (05:42)
[2019-03-29] MEDS: KLONOPIN PO PRN ×3 (05:50→23:02)
[2019-03-29 06:17] LABS: BASO# 0.04 X1000 (0.0-0.2); BASO% 0.4 % (0.0-0.8); EOS# 0.65 X1000 (0.0-0.7); EOS% 6.2 % (0.0-10.0); HEMATOCRIT 33.4 % (37.0-47.0); HEMOGLOBIN 10.7 g/dL (12.0-16.0); IMM GRAN# 0.09 X1000 (0.0-0.04); IMM GRAN% 0.9 % (0.0-0.5); LYMPH% 31.3 % (20.5-51.1); MCH 27.6 PG (27-31); MCV 86.1 FL (81-99); MONO# 0.83 X1000 (0.11-0.59); MONO% 7.9 % (1.7-9.3); MPV 8.8 FL (7.4-10.4); NEUT# 5.63 X1000 (1.4-6.5); NEUT% 53.3 % (42.2-75.2); PLT 266 X1000 (130-400); RBC 3.88 XMIL (4.2-5.4); RDW 13.1 % (11.5-14.5); WBC 10.54 X1000 (4.8-10.8)
[2019-03-29] MEDS: HUMALOG SUBQ SCH ×4 (06:32→21:12)
[2019-03-29 06:37] LABS: CALCIUM 8.3 mg/dL (8.8-10.2); CREATININE 1.5 mg/dL (0.5-0.9); POTASSIUM 4.3 mmol/L (3.5-5.1)
[2019-03-29] MEDS: FERROUS SULFATE PO SCH (08:44)
[2019-03-29] MEDS: PLAVIX PO SCH (08:44)
[2019-03-29] MEDS: SYNTHROID PO SCH (08:44)
[2019-03-29] MEDS: LACTULOSE PO SCH (08:44)
[2019-03-29] MEDS: ASPIRIN PO SCH (08:44)
--- NOTE | 2019-03-29 08:44 | PROGRESS NOTE ---
DATE: 03/29/2019 SUBJECTIVE: The patient is resting comfortably in bed. No acute events overnight. We will continue with permissive hypertension. No changes compared with yesterday. OBJECTIVE: Vital Signs: Temperature 97.7 degrees, pulse 68, respiratory rate 17, blood pressure was 204/94, oxygen saturation 97% on room air. HEENT: Head normocephalic, no trauma. PERRLA in the right eye. Left eye with chronic lesion that looks like cataract. Neck: Supple. No JVD. Central trachea. Chest: Clear to auscultation. No wheezing. No rales. Abdomen: Soft, nontender, nondistended. No hepatosplenomegaly. Extremities: No edema, no clubbing, no cyanosis. Neurological: The patient is alert. She is oriented. She has right-sided weakness, upper extremity right-sided weakness. She is able to squeeze my hand and her hand seems to be stronger than the rest of the arm. Strength in that hand around 3 to 4/5, but she cannot lift the arm out of the bed. The strength of the proximal muscle is around 1/5. Right lower extremity is weak, she cannot move it at all, 0/5. Sensation is intact. She is following commands. LABORATORY: WBC 10.5, hemoglobin 10.7, hematocrit 33.4, platelets 266,000. Sodium 131, potassium 4.3, chloride 103, bicarbonate 20, BUN 29, creatinine 1.5, glucose 70, calcium 8.3. ASSESSMENT AND PLAN: 1. Acute stroke, left parietal white matter, but it looks like she has been having episodes of more weakness on and off on the right side and also inability to talk. She was in the eye. She was placed in the ICU again 2 days ago. We have been in contact with [facility] and also [facility] and basically they have recommended to continue with the same management. Neurology Department on board as well. We will continue with permissive hypertension and IV fluids. 2. Vancomycin sensitive Enterococcus urinary tract infection, already treated. 3. Dyslipidemia. Continue with same management. 4. Diabetes, controlled. 5. Chronic kidney disease stage 3A. Continue to monitor. She is making good urine. 6. Uncontrolled hypertension. Apparently, she had an episode of blood pressure 2 days ago and after that she started having symptoms again with right-sided weakness, we need to avoid low blood pressure on this patient. At this moment we will allow permissive hypertension. 7. Situational anxiety and depression. Apparently, she has been by a psychiatrist before at [place]. We will continue with same management for now. She seems to be stable. 8. Constipation. Continue with MiraLAX and lactulose. cc: Howard Red MD
[2019-03-29] MEDS: EFFEXOR PO SCH (08:45)
[2019-03-29] MEDS: LANTUS INSULIN SUBQ SCH ×2 (08:46→20:14)
[2019-03-29] MEDS: SEROQUEL PO SCH (20:15)
[2019-03-29] MEDS: VOLTAREN 1% GEL TOP PRN (20:15)
[2019-03-29] MEDS: REQUIP PO SCH (20:15)
[2019-03-29] MEDS: LIPITOR PO SCH (21:44)
[2019-03-30] MEDS: NS 1,000 ML IV SCH ×2 (04:00→07:18)
[2019-03-30] MEDS: LINZESS PO SCH ×2 (05:40→06:27)
[2019-03-30] MEDS: PROTONIX PO SCH (05:40)
[2019-03-30] MEDS: KLONOPIN PO PRN ×3 (05:40→20:36)
[2019-03-30] MEDS: HUMALOG SUBQ SCH ×4 (06:27→22:38)
[2019-03-30 06:57] LABS: CALCIUM 8.9 mg/dL (8.8-10.2); CREATININE 1.3 mg/dL (0.5-0.9); POTASSIUM 4.1 mmol/L (3.5-5.1)
--- NOTE | 2019-03-30 08:13 | PROGRESS NOTE ---
DATE: 03/30/2019 SUBJECTIVE: This patient is resting comfortably in bed. No acute events overnight. I will start this patient today on metoprolol. I will not be aggressive in decreasing the blood pressure. No changes compared with yesterday, and I believe she can be transferred to a step-down unit, and hopefully she can be discharged to a rehab center soon. PHYSICAL EXAMINATION: Vital Signs: Temperature 98 degrees, pulse 68, respiratory rate 17, blood pressure 162/72, oxygen saturation 97% on room air. HEENT: Head normocephalic. No trauma. PERRLA in the right eye. Left eye with a chronic lesion that looks like cataracts. Neck: Supple. No JVD. Central trachea. Chest: Clear to auscultation. No wheezing. No rales. Abdomen: Soft, nontender, nondistended. No hepatosplenomegaly. Extremities: No edema, no clubbing, no cyanosis. Neurological: The patient is alert. She is oriented. She does have right-sided weakness, right upper extremity around 2/5, strength in the hand though is better, it is 3 to 4/5, but right lower extremity is 0/5. Sensation is intact though. She is following commands. LABORATORY DATA: Sodium 139, potassium 4.1, chloride 104, bicarbonate 23, BUN 30, creatinine 1.3, glucose 93, calcium 8.9. ASSESSMENT AND PLAN: 1. Acute stroke, left parietal white matter, but it looks like she has been having episodes of more weakness off and on on the right side, and also inability to talk. No acute events in the past couple days. We have been contacting [facility] and [facility] at least a couple times, and they have recommended to continue with the same management. Neurology Department is following this patient closely as well. I will continue with intravenous fluids, and I will put this patient today on one of her multiple home medications for blood pressure. Let's see how she does. 2. Vancomycin-sensitive Enterococcus urinary tract infection, already treated. 3. Dyslipidemia. Continue with the same management. 4. Diabetes, controlled. 5. Chronic kidney disease stage IIIA. Continue to monitor. She is making good urine. 6. Uncontrolled hypertension. Apparently, she had an episode of low blood pressure a few days ago, and then she started having symptoms again with right-sided weakness with a low blood pressure. 7. Situational anxiety and depression. Apparently, she has been seen by a psychiatrist before at [place]. Will continue with the same management for now. She seems to be stable. 8. Constipation. Continue MiraLAX and lactulose. cc: Howard Red MD
[2019-03-30] MEDS: TOPROL XL PO SCH (08:49)
[2019-03-30] MEDS: ASPIRIN PO SCH (08:49)
[2019-03-30] MEDS: PLAVIX PO SCH (08:49)
[2019-03-30] MEDS: SYNTHROID PO SCH (08:50)
[2019-03-30] MEDS: LANTUS INSULIN SUBQ SCH ×2 (08:50→20:31)
[2019-03-30] MEDS: FERROUS SULFATE PO SCH (08:50)
[2019-03-30] MEDS: LACTULOSE PO SCH (08:51)
[2019-03-30] MEDS: EFFEXOR PO SCH (08:52)
[2019-03-30] MEDS: DULCOLAX PR PRN (10:52)
[2019-03-30] MEDS: VOLTAREN 1% GEL TOP PRN (14:11)
[2019-03-30] MEDS: LIPITOR PO SCH (20:31)
[2019-03-30] MEDS: REQUIP PO SCH (20:31)
[2019-03-30] MEDS: SEROQUEL PO SCH (20:32)
[2019-03-31] MEDS: PROTONIX PO SCH (05:14)
[2019-03-31] MEDS: KLONOPIN PO PRN (05:17)
[2019-03-31] MEDS: LINZESS PO SCH (06:10)
[2019-03-31] MEDS: HUMALOG SUBQ SCH ×2 (06:11→12:06)
[2019-03-31 07:50] LABS: CALCIUM 8.5 mg/dL (8.8-10.2); CREATININE 1.8 mg/dL (0.5-0.9); POTASSIUM 4.3 mmol/L (3.5-5.1)
[2019-03-31] MEDS: EFFEXOR PO SCH (08:15)
[2019-03-31] MEDS: LACTULOSE PO SCH (08:15)
[2019-03-31] MEDS: SYNTHROID PO SCH (08:15)
[2019-03-31] MEDS: ASPIRIN PO SCH (08:15)
[2019-03-31] MEDS: PLAVIX PO SCH (08:15)
[2019-03-31] MEDS: TOPROL XL PO SCH (08:15)
[2019-03-31] MEDS: FERROUS SULFATE PO SCH (08:15)
[2019-03-31] MEDS: LANTUS INSULIN SUBQ SCH (08:58)
[2019-03-31] MEDS ORDERED: KLONOPIN PO SCH ×2 (09:00→21:00)
[2019-03-31] MEDS ORDERED: COZAAR PO SCH (09:00)
[2019-03-31] MEDS: NS 1,000 ML IV SCH (09:01)
[2019-03-31 11:30] VITALS: BP 179/70
--- NOTE | 2019-03-31 11:31 | DISCHARGE SUMMARY ---
ADMISSION DATE: 03/21/2019 DISCHARGE DATE: DISCHARGE DIAGNOSES: 1. Acute stroke, left parietal white matter with right-sided hemiparesis. She has been having worsening symptoms during this hospitalization on and off with inability to talk. At this moment, she is talking. 2. Vancomycin-sensitive Enterococcus urinary tract infection, already treated. 3. Dyslipidemia. Continue with the same management. 4. Diabetes, controlled. 5. Chronic kidney disease stage 3. Continue to monitor. 6. Uncontrolled hypertension. It has been recommended to keep the blood pressure on the higher side. I have been trying to keep the blood pressure around 150. 7. Situational anxiety and depression. Continue with the same management. 8. Constipation. Continue with MiraLAX and lactulose, as needed suppositories. PROCEDURES PERFORMED: 1. Chest x-ray dated 03/19/2019, impression: Cardiomegaly and stable linear scarring versus chronic atelectasis in the left midlung zone. 2. Head CT scan dated 03/19/2019, impression: No acute disease or change from prior. 3. Brain MRI dated 03/20/2019, impression: Evidence of [id number] white matter microangiopathy that is stable. No definite acute intracranial pathology. 4. Head CT scan dated 03/21/2019, impression: Subacute subcortical lucency in the left parietal convexity, which may indicate an evolving infarction. 5. Brain MRI dated 03/21/2019, impression: Chronic ischemic microvascular white matter changes with apparent superimposed small lacunar subacute infarctions in the left parietal white matter. 6. Head and neck CT angiogram dated 03/21/2019, impression: No evidence of major branch occlusion or stenosis. 7. Head CT dated 03/23/2019, impression: Chronic ischemic microvascular changes. No apparent change since 03/21/2019. 8. EEG dated 03/24/2019, impression: Normal routine EEG in the awake, drowsy, and asleep state. 9. Brain MRI dated 03/27/2019, impression: Interval enlargement in the recent left middle cerebral artery infarct. HOSPITAL COURSE: An 89-year-old female presented to [facility] complaining of right-sided weakness that began the night before admission. She was admitted on 03/19/2019. She states that she was not able to get out of a sitting position, unable to move her right arm and right leg, was dragging her right leg once she did stand up, but later the morning of admission, she was able to ambulate, and basically she regained her strength to her right hand, so she was admitted for evaluation. We did an echocardiogram that showed a normal ejection fraction. We did not see any thrombosis. She has some aortic valve that is difficult to visualize, but does appear to be somewhat calcified. There is likely a restriction of motion consistent with mild aortic stenosis. Then, she started having symptoms during this hospitalization multiple times with right-sided weakness and inability to talk. The first time was on 03/21/2019. When she had the acute problem, we immediately called [facility] and also [facility] to see if she was a candidate for any kind of treatment and/or transfer this patient, but [facility], after reviewing all the images, including head CT, brain MRI without contrast because of her kidney function, head and neck CT angiogram, they stated that it can be treated in-house, and they have checked all the medications with me, and I will follow their recommendations. Like I said, she has been having multiple times, on and off worsening weakness, and she was not able to talk at least 3 times. Another episode happened on 03/27/2019, and also that day, we contacted [facility] and [facility], which basically recommended continued treatment, and only treat the blood pressure if above 220 for at least 2 days, and continue with current treatment. She seems to be stable right now. We are trying to keep the blood pressure around 150. She is completely alert. She is oriented. She is following commands. She does have right-sided weakness. She is able to squeeze my hand, and strength is around 3/5, but she is not able to lift the arm out of the bed or move the right lower extremity. She has been evaluated also by Neurology Department during this hospitalization in our hospital, and we will just continue with the treatment. She seems to be stable right now. I talked to the daughter and the patient, and I told them that this can happen again actually multiple times. She will be discharged to a rehab center to start working on her strength, and hopefully she will regain some. At the moment of discharge, this patient was tolerating p.o. She was eating by herself, and she was not able to walk because of right-sided weakness. PHYSICAL EXAMINATION: Vital Signs: Temperature 97.5 degrees, pulse 67, respiratory rate 17, blood pressure 198/83, oxygen saturation 99 on room air. HEENT: Head normocephalic. No trauma. Right eye PERRLA. She has a chronic lesion on the left side. Neck: Supple. No JVD. Central trachea. Chest: Clear to auscultation. No wheezing. No rales. Abdomen: Soft, nontender, nondistended. No hepatosplenomegaly. Extremities: No edema. No clubbing. No cyanosis. Neurological: She is alert. She is oriented. She does have right-sided weakness, right upper extremity. She is not able to lift the right upper extremity, but she is able to squeeze my hand with a strength of 3/5. She is not able to move the right lower extremity, 0/5. Sensation is intact. She is following commands. LABORATORY DATA: Sodium 133, potassium 4.3, chloride 100, bicarbonate 20, BUN 33, creatinine 1.8, glucose 101, calcium 8.5. DISCHARGE MEDICATIONS: Acetaminophen 650 p.o. every 6 hours as needed, aspirin 325 mg p.o. daily, Lipitor 10 mg p.o. at bedtime, Dulcolax 10 mg per rectal daily as needed, vitamin D3 at 2000 units p.o. daily, clonidine 0.5 mg p.o. every a.m. and every p.m., Plavix 75 mg p.o. daily, ferrous sulfate 325 mg p.o. daily, Lantus 25 units subcutaneously b.i.d., probiotic 1 tablet p.o. daily, lactulose 30 mL p.o. daily and also as needed, levothyroxine 112 mcg p.o. daily, Linzess 290 mcg p.o. daily, Losartan 100 mg p.o. daily, metoprolol 50 mg p.o. daily, pantoprazole 40 mg p.o. daily, MiraLAX 17 grams p.o. twice a day, Phenergan 25 mg p.o. every 6 hours as needed for nausea and vomiting, quetiapine 25 mg p.o. at bedtime, and ropinirole 2 mg p.o. at bedtime. TIME SPENT: Time discharging this patient was 35 minutes. FOLLOWUP: Follow up with her primary care doctor in 1 week. Also follow up with Neurology Department. Please call for an appointment. cc: Howard Red MD
== END 2019-03-31 13:49 | DRG 65 ==
LOC: ED 11:25 → 3N 11:25 → SUATTDRO 16:08 → ICU 03-21 21:53 → SUATTDRO 03-22 12:02 → 3N 03-26 08:34 → ICU 03-27 16:58 → 2N 03-30 11:42
PROVIDERS: ATTEND Internal Medicine

== ENCOUNTER 2019-04-28 14:42 | Inpatient (IN) ==
[2019-04-28 15:51] LABS: BASO# 0.03 X1000 (0.0-0.2); BASO% 0.3 % (0.0-0.8); EOS# 0.19 X1000 (0.0-0.7); EOS% 1.8 % (0.0-10.0); HEMATOCRIT 29.8 % (37.0-47.0); LYMPH# 1.91 X1000 (1.2-3.4); LYMPH% 18.2 % (20.5-51.1); MCH 28.5 PG (27-31); MCHC 33.6 g/dL (33-37); MCV 84.9 FL (81-99); MONO# 0.88 X1000 (0.11-0.59); MONO% 8.4 % (1.7-9.3); MPV 8.5 FL (7.4-10.4); NEUT# 7.39 X1000 (1.4-6.5); NEUT% 70.3 % (42.2-75.2); PLT 289 X1000 (130-400); RBC 3.51 XMIL (4.2-5.4); RDW 13.7 % (11.5-14.5)
--- NOTE | 2019-04-28 15:55 | PROVIDER DOCUMENTATION ---
HPI-General Adult - General Chief Complaint: Abnormal Lab[s] Stated Complaint: HIGH BP/LOW SODIUM Time Seen by Provider: 04/28/19 14:49 Source: EMS Allergies/Adverse Reactions: Patient Allergies Allergy/AdvReac Type Severity Reaction Status Date / Time codeine Allergy RASH Verified 03/19/19 13:19 Penicillins Allergy RASH Verified 03/19/19 13:19 Sulfa (Sulfonamide AdvReac Unknown Verified 03/19/19 13:19 Antibiotics) Home Medications: Home Medication List Medication Instructions Recorded Confirmed Last Taken Type Insulin Glargine [Lantus] 25 unit SQ BID 12/02/17 04/28/19 04/28/19 History Lactobacillus Combo No.11 1 each PO DAILY 12/02/17 04/28/19 04/28/19 History [Probiotic] Pantoprazole Sodium 40 mg PO DAILY@0600 12/02/17 04/28/19 04/28/19 History ATORVAstatin [Lipitor] 10 mg PO HS 02/17/18 04/28/19 12/19/18 History Ferrous Sulfate 325 mg PO DAILY 02/17/18 04/28/19 04/28/19 History Ropinirole HCl 2 mg PO HS 02/17/18 04/28/19 12/19/18 History Promethazine [Phenergan] 25 mg PO Q6H PRN PRN #14 tab 12/01/18 04/28/19 Unknown Rx Linaclotide [Linzess] 290 mcg PO DAILY 12/05/18 04/28/19 04/28/19 History Metoprolol Succinate E.r. [Toprol 50 mg PO DAILY tab 12/11/18 04/28/19 04/28/19 Rx Xl] Polyethylene Glycol 3350 [Miralax] 17 gm PO 0500,2100 powder, packet 12/11/18 04/28/19 04/28/19 Rx Losartan Potassium 100 mg PO DAILY 12/20/18 04/28/19 04/28/19 History Cholecalciferol (Vitamin D3) 2,000 unit PO DAILY 03/20/19 04/28/19 Unknown History [Vitamin D3] Lactulose 30 ml PO DAILY 03/20/19 04/28/19 04/28/19 History Quetiapine [Seroquel] 25 mg PO HS 03/20/19 04/28/19 04/27/19 History Acetaminophen [Tylenol] 650 mg PO Q6H PRN PRN tab 03/31/19 04/28/19 Unknown Rx Aspirin 325 mg PO DAILY tab 03/31/19 04/28/19 Unknown Rx Bisacodyl [Dulcolax] 10 mg ME DAILY PRN PRN supp 03/31/19 04/28/19 Unknown Rx Clonazepam [Klonopin] 0.5 mg PO QAM tab 03/31/19 04/28/19 04/28/19 Rx Clopidogrel [Plavix] 75 mg PO DAILY tab 03/31/19 04/28/19 04/28/19 Rx Azithromycin 1 tab PO ONCE 04/28/19 04/28/19 04/27/19 History Azithromycin 1 tab PO ONCE 04/28/19 04/28/19 04/28/19 History Clonidine [Catapres] 1 tab PO PRN PRN 04/28/19 04/28/19 04/27/19 History Diclofenac 1% Gel [Voltaren 1% Gel] 2 gm TOP BID 04/28/19 04/28/19 04/28/19 History Levetiracetam 1 tab PO BID 04/28/19 04/28/19 04/28/19 History Levofloxacin 1 tab PO DAILY 04/28/19 04/28/19 04/28/19 History Levothyroxine [Synthroid] 1 tab PO DAILY 04/28/19 04/28/19 04/28/19 History Methocarbamol 1 tab PO QHS 04/28/19 04/28/19 04/27/19 History Vortioxetine Hydrobromide 1 tab PO DAILY 04/28/19 04/28/19 04/28/19 History [Trintellix] - History of Present Illness -Gen Adult Nature of Presenting Problems: 89 YO F brought in by EMS from nursing facility of [facility] for abnormal labs of low sodium and hypertension. Daughter was in the room on revist and states that CXR was performed on yesterday and showing pna. Pt is NAD and denying any pain currently. Review of Systems - Adult - REVIEW OF SYSTEMS - ADULT ROS:: limited per condition Constitutional: denies: chills, fever Eyes: reports: no symptoms reported Ears, Nose, Mouth & Throat: reports: no symptoms reported Cardiovascular: reports: no symptoms reported Respiratory: denies: cough, shortness of breath, wheezing Gastrointestinal: reports: no symptoms reported Genitourinary: reports: no symptoms reported Musculoskeletal: reports: no symptoms reported Integumentary: reports: no symptoms reported Neurological: reports: no symptoms reported Past History - Adult - PAST MEDICAL HISTORY-ADULT Review of Records: reports: Social history reviewed & non-contributory. Major Childhood Illnesses: reports: denies history Cardiovascular: reports: CHF, HTN Respiratory: reports: asthma, COPD Gastrointestinal: reports: GERD Obstetrical/Gynecological: reports: denies history Genitourinary: reports: kidney disease Musculoskeletal: reports: denies history Neurological: reports: dementia, TIA Psychiatric: reports: anxiety Endocrine/Immune: reports: Diabetes, thyroid disorder Other Conditions: reports: denies history - PRIOR SURGERIES/PROCEDURES Surgical/Procedure History: reports: hysterectomy, tonsillectomy, other (thyroidectomy, eye sx) - IMMUNIZATION STATUS Childhood Immunizations: See Nurse Assessment Flu Vaccine: See Nurse Assessment - FAMILY HISTORY Family History: reviewed, not pertinent - SOCIAL HISTORY Smoking: denies Substance Use: denies Living Situation: care facility Physical Exam-General - PHYSICAL EXAM-ADULT Initial Vital Signs Reviewed: Yes - CONSTITUTIONAL General Appearance: alert, no apparent distress - NECK Neck: supple - CARDIOVASCULAR Cardiovascular: regular rate, rhythm - SKIN Integumentary: warm/dry Progress - PLAN OF CARE/RESULTS Progress/Plan/Lab Results: Vital Signs - 8 hr 04/28/19 15:42 Temperature 97.8 F Pulse Rate 79 Respiratory Rate 15 Blood Pressure 194/104 O2 Sat by Pulse Oximetry 97 Laboratory Results - last 24 hr 04/28/19 15:39 WBC 10.50 RBC 3.51 L Hgb 10.0 L Hct 29.8 L MCV 84.9 MCH 28.5 MCHC 33.6 RDW Std Deviation 13.7 Plt Count 289 MPV 8.5 Immature Gran % (Auto) 1.0 H Neut % (Auto) 70.3 Lymph % (Auto) 18.2 L [place] % (Auto) 8.4 Eos % (Auto) 1.8 Baso % (Auto) 0.3 Immature Gran # (Auto) 0.10 H Neut # (Auto) 7.39 H Lymph # (Auto) 1.91 [place] # (Auto) 0.88 H Eos # (Auto) 0.19 Baso # (Auto) 0.03 Orders Category Date Time Status Cardiac Monitoring DIRECTED Care 04/28/19 15:00 Active CHEST-2 VIEWS [RAD] Stat Exams 04/28/19 15:01 Ordered CBC WITH ELECTRONIC DIFF [HEME] Stat Lab 04/28/19 15:39 Completed COMPREHENSIVE METABOLIC PANEL [CHEM] Stat Lab 04/28/19 15:39 Received MAGNESIUM [CHEM] Stat Lab 04/28/19 15:39 Received TSH Stat Lab 04/28/19 15:39 Received pt sent from snf of [facility]. CXR showing new infiltrates with venous congestion. Labs showing hyponatremia. Elevated BP in 200s/110s. Plan on admission for uncontrolled HTN, pna, and hyponatremia. UA pending. pt already started on rocephin and will do slow NS fluids. Result Diagrams: 04/28/19 15:39 05/03/19 06:35 Departure - Departure Date of Disposition Decision: 04/28/19 Time of Disposition Decision: 16:52 DIAGNOSIS: Hyponatremia, Hypertension, Pneumonia Disposition: ADMITTED INPATIENT 09 Certified Medical Emergency: Emergent Condition: Stable - Critical Care Note This patient required my direct & personal management of CC.: No Attestation - Physician/ DAYANA Attestation The physician spent face to face time with patient:: Yes Advanced Practice Provider documentation review:: Supervising physician onsite and consulted in the evaluation and care of this patient. The physician did have a face to face encounter with the patient.
[2019-04-28 16:19] LABS: ALB/GLOB RATIO 1.1; ALBUMIN 3.2 g/dL (3.5-5.0); CALCIUM 9.3 mg/dL (8.8-10.2); CREATININE 1.5 mg/dL (0.5-0.9); MAGNESIUM 1.7 mg/dL (1.5-2.7); POTASSIUM 4.8 mmol/L (3.5-5.1); TOTAL BILIRUBIN 0.39 mg/dL (0.20-1.00); TOTAL PROTEIN 6.1 g/dL (6.3-8.3)
--- NOTE | 2019-04-28 16:29 | Diag Imaging Result Doc PS360 ---
CHEST-2 VIEWS - 04/28/2019 INDICATION: high bp COMPARISON: 03/19/2019 FINDINGS: There is cardiomegaly and pulmonary vascular congestion. There is some linear infiltrate or atelectasis in the left midlung stable from prior. There are new trace bilateral pleural effusions. No dense infiltrates or pulmonary edema. IMPRESSION: Nonspecific findings. Electronically signed by Sebastian Loo 04/28/2019 4:27 PM
[2019-04-28] MEDS ORDERED: APRESOLINE IV ONE (16:52)
[2019-04-28] MEDS ORDERED: NS 1,000 ML IV SCH (17:00)
[2019-04-28] MEDS ORDERED: ROCEPHIN 1 GM in NS 50 ML IV ONE (17:03)
[2019-04-28] MEDS ORDERED: LABETALOL IV PRN (19:04)
[2019-04-28] MEDS: TYLENOL PO SCH (21:53)
[2019-04-28] MEDS ORDERED: DULCOLAX PR PRN (22:32)
[2019-04-28] MEDS: KLONOPIN PO SCH (23:44)
[2019-04-28] MEDS: LIPITOR PO SCH (23:45)
[2019-04-28] MEDS: REQUIP PO SCH (23:45)
[2019-04-28] MEDS: SEROQUEL PO SCH (23:45)
[2019-04-29] MEDS ORDERED: SALINE LOCK IV FLUID XX ONE (01:27)
[2019-04-29] MEDS ORDERED: DUONEB (A & A) INH PRN (01:32)
[2019-04-29 02:17] LABS: URINE SOURCE CLEAN CATCH
[2019-04-29 02:21] LABS: BILIRUBIN URINE NEGATIVE (NEGATIVE); BLOOD URINE NEGATIVE (NEGATIVE); COLOR STRAW; GLUCOSE URINE 150 mg/dL (NEGATIVE); KETONE URINE NEGATIVE (NEGATIVE); LEUKOCYTES URINE NEGATIVE (NEGATIVE); NITRITE URINE NEGATIVE (NEGATIVE); PH URINE 6.5; PROTEIN URINE 200 mg/dL (NEGATIVE); SP GRAVITY URINE 1.009; TURBIDITY URINE CLEAR (CLEAR); UROBILINOGEN URINE NORMAL (NORMAL)
[2019-04-29 02:22] LABS: UR EPITHELIAL CELLS <10 /HPF (<10); URINE BACTERIA NEGATIVE /HPF; URINE RBC <10 /HPF (<10); URINE WBC <10 /HPF (<10)
[2019-04-29] MEDS: DUONEB (A & A) INH SCH ×6 (03:55→22:44)
[2019-04-29] MEDS ORDERED: PROTONIX PO SCH (06:00)
[2019-04-29] MEDS: HUMALOG SUBQ SCH ×4 (06:20→20:24)
[2019-04-29] MEDS: TYLENOL PO SCH ×5 (06:21→22:06)
[2019-04-29] MEDS: SYNTHROID PO SCH (06:44)
[2019-04-29] MEDS: PRILOSEC PO SCH (06:44)
[2019-04-29] MEDS: LINZESS PO SCH ×2 (06:58→12:15)
--- NOTE | 2019-04-29 08:31 | HISTORY AND PHYSICAL ---
CHIEF COMPLAINT: Abnormal labs (low sodium level). HISTORY OF PRESENT ILLNESS: Ms. Linda Resendiz is an 89-year-old female who has a history of multiple medical conditions, including congestive heart failure, hypertension, COPD, hypothyroidism, anxiety disorder, depression, gastroesophageal reflux disease, chronic kidney disease, previous CVA, diabetes mellitus. The patient was referred from the nursing facility where she resides by the physician over there because of a low sodium level. Her sodium level here at [facility] on arrival was found to be 125. The patient complains of cough productive of sputum, shortness of breath, wheezing, chest pain, leg swelling. Chest x-ray done at time of presentation showed evidence of cardiomegaly with pulmonary vascular condition. There is some infiltrate or atelectasis in the left midlung, stable from prior. There is also evidence of trace bilateral pleural effusions. No dense infiltrates or pulmonary edema noted. The patient has now been admitted to the floor for further management. PAST MEDICAL HISTORY: Congestive heart failure, hypertension, COPD, hypothyroidism, anxiety, depression, gastroesophageal reflux disease, chronic kidney disease, dementia, CVA, diabetes mellitus. PAST SURGICAL HISTORY: She has had hysterectomy, tonsillectomy, thyroid surgery, as well as eye surgery. SOCIAL HISTORY: No history of cigarette smoking, alcohol, or drug use. [facility]. ALLERGIES: She is allergic to penicillin as well as sulfa. FAMILY HISTORY: Positive for palpitations as well as diabetes mellitus. MEDICATIONS: Include the following: Lantus insulin 25 units subcutaneously twice a day, probiotic 1 daily, levothyroxine 112 mcg p.o. daily, pantoprazole 40 mg p.o. daily, atorvastatin 10 mg p.o. at bedtime, ferrous sulfate 325 mg p.o. daily, ropinirole 2 mg p.o. at bedtime, Phenergan 25 mg every 6 hours p.r.n., Linzess 290 mcg p.o. daily, metoprolol ER 50 mg p.o. daily, MiraLAX 17 grams daily, losartan 100 mg p.o. daily, vitamin D 1000 units p.o. once a day, lactulose 30 mL p.o. daily, Seroquel 25 mg p.o. at bedtime, Tylenol 650 mg p.o. every 6 hours p.r.n. pain, aspirin 325 mg p.o. once a day, bisacodyl 10 mg p.o. p.r.n., clonazepam 0.5 mg p.o. every a.m. and 0.5 mg p.o. at bedtime, Plavix 75 mg p.o. daily, Diclofenac gel 2 grams topical 4 times a day p.r.n. REVIEW OF SYSTEMS: Constitutional: No fever. [employer]: No headaches. Eyes: She is blind in her left eye, and she has glasses. ENT: She has sinus problems. Cardiovascular: Chest pain. Respiratory: As in history of present illness. GI: She has vomiting with constipation. : She has dysuria. Musculoskeletal: She has joint pains. Dermatology: No skin lesions. Hematology: No bleeding problems. Psychiatry: Has anxiety with depression. Endocrinology: She does have thyroid disease as well as diabetes mellitus. PHYSICAL EXAMINATION: VITAL SIGNS: Temperature 97.8 degrees, pulse 79, respirations 15, blood pressure 194/104, oxygen saturation is 97%. HEENT: The patient is atraumatic, normocephalic. She is blind in the left eye. Extraocular movements intact. No oral lesions. NECK: No lymphadenopathy or thyromegaly. CARDIOVASCULAR: S1, S2. RESPIRATORY: Has evidence of good air entry bilaterally. ABDOMEN: Soft, nontender. No masses felt. EXTREMITIES: Has about 2+ edema in the lower extremities. CENTRAL NERVOUS SYSTEM: The patient is awake, alert, well oriented. She does have right hemiplegia. IMAGING AND LABORATORY DATA: WBC 10.5, hematocrit is 29.9, with a platelet count of 289,000. Sodium is 125, potassium is 4.9, chloride is 90, bicarb is 23, BUN is 26, creatinine is 1.5. ProBNP is 3419. Chest x-ray shows cardiomegaly with pulmonary vascular condition. There is some linear infiltrate or atelectasis in the left midlung. There are new trace bilateral pleural effusions. No dense infiltrates or pulmonary edema. ASSESSMENT AND PLAN: 1. Hypervolemic hyponatremia. Would restrict fluid intake. In light of volume overload, will start the patient on diuretics. Check cortisol level as well as a TSH level. Check urine for creatinine and sodium, as well as osmolality. Follow up on sodium level. 2. Probable acute diastolic congestive heart failure. Monitor intake and output, as well as daily weights. Maintain the patient on diuretics as needed. 3. Hypertension. Optimize blood pressure control using parenteral as well as oral agents. 4. Chronic obstructive pulmonary disease. Nebulized bronchodilators. 5. Chronic kidney disease. Closely follow up on renal function. Avoid nephrotoxic agent. 6. Probable pneumonia. Chest x-ray shows evidence of some linear infiltrate or atelectasis in the left midlung base, which is stable from prior. There are no dense infiltrates. Will get a CT of the chest without contrast to further evaluate if the patient does have pneumonia or not. 7. Hypothyroidism. Check thyroid function tests. Continue levothyroxine. 8. Diabetes mellitus. Monitor blood sugar levels. Place the patient on sliding scale insulin. Check hemoglobin A1c level. 9. Gastroesophageal reflux disease. Maintain the patient on proton pump inhibitor. 10. Anxiety with depression. Continue appropriate psychiatric medications. 11. Dysuria. Check urinalysis. 12. Deep vein thrombosis prophylaxis. Lovenox. 13. Gastrointestinal prophylaxis. Proton pump inhibitor. 14. History of cerebrovascular accident with right hemiplegia. Maintain the patient on aspirin as well as statin. Consult with Physical Therapy. cc: Kofi Smalls MD
--- NOTE | 2019-04-29 09:12 | Diag Imaging Result Doc PS360 ---
EXAM: CT THORAX W/O CONTRAST 04/29/2019 HISTORY: r/o pneumonia TECHNIQUE: This exam was performed using automated exposure control, adjustment of mA or kV according to patient size, and/or use of iterative reconstruction technique. COMMENT: The current study is compared with the previous examination of 12/21/2018. There is patchy air trapping and platelike opacities present in both upper lobes. There are platelike opacities in the left lower lobe and the posterior costophrenic sulcus of the right lower lobe is opacified. These findings were largely present at the time the previous study. The groundglass opacities which were previously present in the right lower lobe and middle lobe are no longer present. There is fluid in the esophagus. There is paratracheal and aorticopulmonary window adenopathy which has not changed significantly since the previous study. There is coronary calcification. There are calcifications in the mitral valve annulus. There are bilateral pleural effusions. This was also the case on the previous study. The regional skeleton is stable in appearance. IMPRESSION: Air trapping which is likely associated with exacerbation of COPD. Stable atelectasis and/or fibrosis. Bilateral pleural effusions. Electronically signed by Tobias Melo 04/29/2019 9:10 AM
[2019-04-29] MEDS: TOPROL XL PO SCH (09:32)
[2019-04-29] MEDS: ASPIRIN PO SCH (09:32)
[2019-04-29] MEDS: COZAAR PO SCH (09:32)
[2019-04-29] MEDS: VITAMIN D PO SCH (09:32)
[2019-04-29] MEDS: FERROUS SULFATE PO SCH (09:32)
[2019-04-29] MEDS: PLAVIX PO SCH (09:32)
[2019-04-29] MEDS: KLONOPIN PO SCH ×2 (09:32→20:22)
[2019-04-29] MEDS: LASIX IV SCH (09:33)
--- NOTE | 2019-04-29 09:52 | PROGRESS NOTE ---
DATE: 04/29/2019 SUBJECTIVE: She is a patient of Dr. Elliot Morin. An 89-year-old female with history of multiple medical problems, including congestive heart failure, hypertension, COPD, hypothyroidism, anxiety disorder, depression, gastroesophageal reflux disease, chronic kidney disease, previous CVA, diabetes mellitus. The patient was referred from the nursing facility where she resides by the physician because of low sodium level, and sodium was found to be 125. Concerned about cough and increased wheezing. Apparently complaining of some chest pain, and worried about her elevated blood pressure. OBJECTIVE: Vital Signs: She remains afebrile, temperature 97.4 degrees, pulse 69, respirations 22, blood pressure 181/61. HEENT: Pupils are equal and round. Lungs: Clear in all lung chapman. Cardiovascular: Regular rhythm and rate without murmur or S3. Abdomen: Soft. Skin: Warm and dry. Urine output was 1200 mL. IMAGING: Chest CT: Air trapping, which is likely associated with exacerbation of COPD, stable atelectasis, questionable fibrosis, bilateral pleural effusion. ASSESSMENT AND PLAN: 1. Hypervolemic hyponatremia. We are going to restrict fluid, and start her on some diuretics. Will follow her T4 and TSH. Her sodium will be rechecked again in the morning. 2. Probable acute diastolic congestive heart failure with elevated blood pressure. Blood pressure is still running a little high at 210/86 and 181/61, so will add some medicine to adjust her afterload. Continue Lasix 40 mg once a day. 3. History of primary hypothyroidism. Continue her Synthroid. Right now, she is on losartan 100 mg a day. 4. Constipation. She does take Linzess. cc: Alok Matthew MD
[2019-04-29 11:28] LABS: HEMOGLOBIN A1C 5.7 % (4.8-6.0)
[2019-04-29] MEDS: LIPITOR PO SCH (20:22)
[2019-04-29] MEDS: SEROQUEL PO SCH (20:23)
[2019-04-29] MEDS: REQUIP PO SCH (20:39)
[2019-04-30] MEDS: DUONEB (A & A) INH SCH ×6 (04:01→23:55)
[2019-04-30] MEDS: TYLENOL PO SCH ×4 (04:17→21:21)
[2019-04-30] MEDS: SYNTHROID PO SCH (06:22)
[2019-04-30] MEDS: PRILOSEC PO SCH (06:22)
[2019-04-30] MEDS: HUMALOG SUBQ SCH ×4 (06:23→23:01)
[2019-04-30 08:07] LABS: IRON SATURATION 14 %; TIBC 217 ug/dL; TOTAL IRON 31 ug/dL (49-151); UNBOUND IRON 186 ug/dL (112-346)
[2019-04-30 08:22] LABS: CALCIUM 8.8 mg/dL (8.8-10.2); CREATININE 1.6 mg/dL (0.5-0.9); MAGNESIUM 1.6 mg/dL (1.5-2.7)
[2019-04-30 08:38] LABS: FERRITIN 165 ng/mL (13-150)
[2019-04-30] MEDS: KLONOPIN PO SCH ×2 (08:54→21:22)
[2019-04-30] MEDS: ASPIRIN PO SCH (08:54)
[2019-04-30] MEDS: PLAVIX PO SCH (08:54)
[2019-04-30] MEDS: VITAMIN D PO SCH (08:54)
[2019-04-30] MEDS: TOPROL XL PO SCH (08:55)
[2019-04-30] MEDS: FERROUS SULFATE PO SCH (08:55)
[2019-04-30] MEDS: COZAAR PO SCH (08:55)
[2019-04-30] MEDS: LASIX IV SCH (08:56)
[2019-04-30] MEDS ORDERED: LOVENOX SUBQ SCH (09:00)
[2019-04-30] MEDS: LINZESS PO SCH (09:11)
[2019-04-30] MEDS ORDERED: LACTULOSE PO ONE (14:10)
[2019-04-30] MEDS: NORVASC PO SCH ×2 (14:27→23:02)
--- NOTE | 2019-04-30 14:31 | PROGRESS NOTE ---
DATE: 04/30/2019 SUBJECTIVE: Ms Resendiz is feeling better. She still is very weak and this is frustrating to her. She is getting some physical therapy. OBJECTIVE: Vital signs: She remains afebrile, temperature 98.1 degrees, pulse 80, respirations 20, blood pressure 184/71. HEENT: Pupils are equal and round. Lungs: Clear in all lung chapman. Cardiovascular: Regular rhythm and rate without murmur or S3. Abdomen: Soft, nontender, nondistended. Skin: Warm and dry. Urine output: 1000 mL. LABORATORY DATA: Blood sugar 191, 159, 177. ASSESSMENT AND PLAN: 1. Hypovolemic hyponatremia which is improved. 2. Diastolic congestive heart failure with elevated blood pressure. We will make some more adjustments to correct for afterload. The patient at home was taking metoprolol. Her kidney function seems to be doing well. Her creatinine is at 1.6, which I think is probably baseline for her so I will add Norvasc to her regimen and will take 5 mg twice a day and see if that will help bring the blood pressure down a little more. cc: Alok Matthew MD
[2019-04-30] MEDS: SEROQUEL PO SCH (21:21)
[2019-04-30] MEDS: REQUIP PO SCH (21:22)
[2019-04-30] MEDS: LIPITOR PO SCH (21:22)
[2019-05-01] MEDS: DUONEB (A & A) INH SCH ×5 (03:32→19:29)
[2019-05-01] MEDS: TYLENOL PO SCH ×4 (06:03→20:57)
[2019-05-01] MEDS: SYNTHROID PO SCH (06:03)
[2019-05-01] MEDS: PRILOSEC PO SCH (06:03)
[2019-05-01] MEDS: LACTULOSE PO SCH (06:03)
[2019-05-01] MEDS: LINZESS PO SCH (06:03)
[2019-05-01] MEDS: HUMALOG SUBQ SCH ×4 (06:04→20:59)
[2019-05-01 08:25] LABS: CALCIUM 9.4 mg/dL (8.8-10.2); CREATININE 1.9 mg/dL (0.5-0.9); POTASSIUM 3.8 mmol/L (3.5-5.1)
[2019-05-01] MEDS: FERROUS SULFATE PO SCH (09:15)
[2019-05-01] MEDS: NORVASC PO SCH ×2 (09:15→20:58)
[2019-05-01] MEDS: VITAMIN D PO SCH (09:15)
[2019-05-01] MEDS: PLAVIX PO SCH (09:15)
[2019-05-01] MEDS: TOPROL XL PO SCH (09:16)
[2019-05-01] MEDS: KLONOPIN PO SCH ×2 (09:16→20:58)
[2019-05-01] MEDS: COZAAR PO SCH (09:16)
[2019-05-01] MEDS: LASIX IV SCH (09:16)
[2019-05-01] MEDS: ASPIRIN PO SCH (09:16)
--- NOTE | 2019-05-01 09:32 | PROGRESS NOTE ---
DATE: 05/01/2019 SUBJECTIVE: The patient was admitted on 04/28 with abnormal labs and low sodium. PAST MEDICAL HISTORY: Congestive heart failure, hypertension, COPD, hypothyroidism, anxiety disorder, depression, gastroesophageal reflux disease, chronic kidney disease, previous CVA, and diabetes mellitus referred from I think the rehab facility. She was living at [facility], and I believe she has been at rehab. Sodium was found to be 125, and so admitted here. She is awake and alert, trying to eat breakfast, and eating some pancakes. Her sitter is here. OBJECTIVE: Temperature 98.1 degrees, pulse 78, respirations 16, and blood pressure 144/55. Pupils are equal and round. Lungs are clear in all lung chapman. Cardiovascular exam with regular rhythm and rate without murmur or S3. LABORATORY: Urine output was 3300 mL. ASSESSMENT AND PLAN: 1. Hypovolemic hyponatremia which seems to have improved. 2. Diastolic heart failure with elevated blood pressure, and seems to be breathing comfortably. Her sodium is up to 137 so her creatinine was 1.9. It was 1.6 yesterday so we will follow her renal function but, hope to get her back to rehab possibly tomorrow. She has occupational therapy and physical therapy involved right now. cc: Alok Matthew MD
[2019-05-01] MEDS: REQUIP PO SCH (20:57)
[2019-05-01] MEDS: SEROQUEL PO SCH (20:58)
[2019-05-01] MEDS: LIPITOR PO SCH (20:58)
[2019-05-02] MEDS: DUONEB (A & A) INH SCH ×7 (00:36→23:58)
[2019-05-02] MEDS: SYNTHROID PO SCH (06:43)
[2019-05-02] MEDS: LACTULOSE PO SCH (06:43)
[2019-05-02] MEDS: TYLENOL PO SCH ×4 (06:43→21:28)
[2019-05-02] MEDS: LINZESS PO SCH (06:43)
[2019-05-02] MEDS: PRILOSEC PO SCH (06:43)
[2019-05-02] MEDS: HUMALOG SUBQ SCH ×3 (06:43→21:29)
[2019-05-02 07:47] LABS: CALCIUM 9.5 mg/dL (8.8-10.2); POTASSIUM 3.9 mmol/L (3.5-5.1)
[2019-05-02] MEDS: COZAAR PO SCH (10:29)
[2019-05-02] MEDS: ASPIRIN PO SCH (10:29)
[2019-05-02] MEDS: KLONOPIN PO SCH ×2 (10:29→21:27)
[2019-05-02] MEDS: FERROUS SULFATE PO SCH (10:29)
[2019-05-02] MEDS: TOPROL XL PO SCH (10:29)
[2019-05-02] MEDS: PLAVIX PO SCH (10:29)
[2019-05-02] MEDS: VITAMIN D PO SCH (10:30)
[2019-05-02] MEDS: LASIX IV SCH (10:30)
[2019-05-02] MEDS: NORVASC PO SCH ×2 (10:30→21:28)
--- NOTE | 2019-05-02 14:42 | PROGRESS NOTE ---
DATE: 05/02/2013 SUBJECTIVE: Ms. Resendiz feels better. She feels like she needs a couple more days before she tries to leave the hospital. She is a little stronger. She was able to ambulate in the burrows a short ways. Her arm strength seems improved. Her breathing is good. She is eating. Her bowels are moving. OBJECTIVE: Vital Signs: Temperature 97.9 degrees, pulse 73, respirations 16, blood pressure 152/62. HEENT: Pupils are equal and round. Lungs: Clear in all lung chapman. Cardiovascular: Regular rate without murmur or S3. Abdomen: Soft. Skin: Warm and dry. LABORATORY DATA: Urine output 1400 mL. ASSESSMENT AND PLAN: 1. Hypovolemic hyponatremia which has seemed to improve, and her sodium level has come up, it is 134 this morning. Potassium 3.9, creatinine is 2.0. So I will take her off of her fluid restriction. 2. General weakness and deconditioning. Continue physical therapy. 3. Diastolic heart failure with elevated blood pressure. Blood pressures are doing nicely. So on review of her orders she is on clonazepam 0.5 mg at bedtime, Norvasc 5 mg b.i.d., aspirin 325 mg a day, Lipitor 10 mg at bedtime, vitamin D3 2000 units daily, Klonopin 0.5 mg q.a.m., Plavix 75 mg a day, ferrous sulfate 325 mg daily, lactulose 30 mL daily, Synthroid 112 mcg p.o. daily, Linzess 290 mcg p.o. daily, Cozaar 100 mg p.o. daily, metoprolol 50 mg daily, Prilosec 40 mg a day, Seroquel 25 mg at bedtime, and her Requip 2 mg at bedtime. cc: Alok Matthew MD
[2019-05-02] MEDS: SEROQUEL PO SCH (21:27)
[2019-05-02] MEDS: REQUIP PO SCH (21:27)
[2019-05-02] MEDS: LIPITOR PO SCH (21:28)
[2019-05-03] MEDS: DUONEB (A & A) INH SCH ×6 (04:36→23:27)
[2019-05-03] MEDS: TYLENOL PO SCH ×4 (05:09→21:49)
[2019-05-03] MEDS: HUMALOG SUBQ SCH ×5 (06:00→21:46)
[2019-05-03] MEDS: LACTULOSE PO SCH (06:00)
[2019-05-03] MEDS: SYNTHROID PO SCH (06:01)
[2019-05-03] MEDS: PRILOSEC PO SCH (06:01)
[2019-05-03] MEDS: LINZESS PO SCH (06:01)
[2019-05-03 07:31] LABS: CALCIUM 9.6 mg/dL (8.8-10.2); CREATININE 1.8 mg/dL (0.5-0.9); POTASSIUM 3.9 mmol/L (3.5-5.1)
[2019-05-03] MEDS: KLONOPIN PO SCH ×2 (10:06→21:47)
[2019-05-03] MEDS: COZAAR PO SCH (10:07)
[2019-05-03] MEDS: FERROUS SULFATE PO SCH (10:07)
[2019-05-03] MEDS: VITAMIN D PO SCH (10:07)
[2019-05-03] MEDS: ASPIRIN PO SCH (10:07)
[2019-05-03] MEDS: TOPROL XL PO SCH (10:08)
[2019-05-03] MEDS: PLAVIX PO SCH (10:08)
[2019-05-03] MEDS: NORVASC PO SCH ×2 (10:08→21:48)
[2019-05-03] MEDS: LASIX IV SCH (10:08)
--- NOTE | 2019-05-03 11:21 | PROGRESS NOTE ---
DATE: 05/03/2019 SUBJECTIVE: Ms Resendiz is feeling better. She just finished getting a bath and her hair was washed. She feels like she is stronger. Plan is for her to go to rehab on Sunday, I think back to [facility] actually. OBJECTIVE: HEENT: Pupils are equal. Lungs: Clear in all lung chapman. Cardiovascular: Regular rhythm and rate without murmur or S3. Abdomen: Soft. Skin: Warm and dry. Vital signs: Temperature 98.7 degrees, pulse 78, respirations 16, blood pressure 159/56. Urine output was 2100 mL. Blood sugar 152, 179, 194. ASSESSMENT AND PLAN: 1. Hypovolemic hyponatremia. This is resolved with fluid volume. 2. Acute kidney injury. 3. General weakness and deconditioning. Continue to pursue rehab. 4. Diastolic heart failure. LABORATORY DATA: Has improved. I am taking her off of fluid restriction. Hematocrit is 29, hemoglobin is 10. Sodium 138, potassium 3.9, chloride 99, BUN 33, creatinine 1.8 which is improved. Blood sugars 267, 179, 188, 194. REVIEW OF HER ORDERS: I do not see any change. cc: Alok Matthew MD
[2019-05-03] MEDS ORDERED: CALMOSEPTINE OINTMENT TOP PRN (14:09)
[2019-05-03] MEDS: REQUIP PO SCH (21:48)
[2019-05-03] MEDS: LIPITOR PO SCH (21:48)
[2019-05-03] MEDS: SEROQUEL PO SCH (21:49)
[2019-05-04] MEDS: TYLENOL PO SCH ×4 (03:35→21:12)
[2019-05-04] MEDS: DUONEB (A & A) INH SCH ×5 (04:35→19:14)
[2019-05-04] MEDS: HUMALOG SUBQ SCH ×4 (06:33→21:30)
[2019-05-04] MEDS: LACTULOSE PO SCH (06:34)
[2019-05-04] MEDS: SYNTHROID PO SCH (06:35)
[2019-05-04] MEDS: PRILOSEC PO SCH (06:35)
[2019-05-04] MEDS: LINZESS PO SCH (06:35)
[2019-05-04] MEDS: LASIX IV SCH (09:05)
[2019-05-04] MEDS: TOPROL XL PO SCH (09:05)
[2019-05-04] MEDS: FERROUS SULFATE PO SCH (09:06)
[2019-05-04] MEDS: ASPIRIN PO SCH (09:06)
[2019-05-04] MEDS: KLONOPIN PO SCH ×2 (09:06→21:12)
[2019-05-04] MEDS: PLAVIX PO SCH (09:06)
[2019-05-04] MEDS: VITAMIN D PO SCH (09:06)
[2019-05-04] MEDS: COZAAR PO SCH (09:06)
[2019-05-04] MEDS: NORVASC PO SCH ×2 (09:06→21:12)
--- NOTE | 2019-05-04 09:43 | PROGRESS NOTE ---
DATE: 05/04/2019 SUBJECTIVE: Ms. Resendiz feels better, feels stronger. She is doing exercises every day. Feels her upper arm strength in particular is better. OBJECTIVE: Temperature 98 degrees, pulse 85, respirations 20, blood pressure 165/57. Pupils are equal and round. Lungs are clear in all lung chapman. Cardiovascular Examination: Regular rhythm and rate without murmur or S3. Abdomen is soft. Skin is warm and dry. Urine output is 3000 mL. ASSESSMENT AND PLAN: 1. Hypovolemic hyponatremia, which has resolved. 2. Acute kidney injury, which is improved. 3. General weakness and deconditioning. She is getting better. Hope to go to rehab tomorrow. 4. Diastolic heart failure with better compensation. REVIEW OF ORDERS: I do not see any change. Her blood pressures look good. Her lab looks good as well. Blood sugars 165, 221, 187. cc: Alok Matthew MD
[2019-05-04] MEDS: SEROQUEL PO SCH (21:12)
[2019-05-04] MEDS: LIPITOR PO SCH (21:12)
[2019-05-04] MEDS: REQUIP PO SCH (21:12)
[2019-05-05] MEDS: DUONEB (A & A) INH SCH ×5 (00:13→15:49)
[2019-05-05] MEDS: TYLENOL PO SCH ×2 (04:52→08:44)
[2019-05-05] MEDS ORDERED: LACTULOSE PO SCH (05:00)
[2019-05-05] MEDS ORDERED: PRILOSEC PO SCH (05:00)
[2019-05-05] MEDS ORDERED: SYNTHROID PO SCH (05:00)
[2019-05-05] MEDS ORDERED: LINZESS PO SCH (05:00)
[2019-05-05] MEDS: HUMALOG SUBQ SCH ×2 (06:47→12:03)
[2019-05-05] MEDS: NORVASC PO SCH (08:44)
[2019-05-05] MEDS: LASIX IV SCH (08:44)
[2019-05-05] MEDS: COZAAR PO SCH (08:44)
[2019-05-05] MEDS: TOPROL XL PO SCH (08:44)
[2019-05-05] MEDS: PLAVIX PO SCH (08:44)
[2019-05-05] MEDS: ASPIRIN PO SCH (08:44)
[2019-05-05] MEDS: FERROUS SULFATE PO SCH (08:44)
[2019-05-05] MEDS: VITAMIN D PO SCH (08:44)
[2019-05-05] MEDS: KLONOPIN PO SCH (08:48)
[2019-05-05 14:55] VITALS: BP 131/60
--- NOTE | 2019-05-05 15:40 | DISCHARGE SUMMARY ---
ADMISSION DATE: 04/28/2019 DISCHARGE DATE: 05/05/2019 HISTORY: She is a patient of Dr. Elliot Morin. She is an 89-year-old white female with a history of multiple medical conditions, including congestive heart failure, hypertension, COPD, hypothyroidism, anxiety disorder, depression, gastroesophageal reflux disease, chronic kidney disease, previous CVA, and diabetes mellitus type 2. She was referred from the nursing facility where she resides, [facility], because of low sodium level. Her sodium level was found to be 125 here at the hospital. She complains of cough, productive sputum, shortness of breath, wheezing, chest pain, and leg swelling. Chest x-ray was done at the time of presentation and showed some cardiomegaly and pulmonary vascular congestion. There were some infiltrates or atelectasis in the left mid lung. There was also evidence of trace of bilateral pleural effusions. She had no dense infiltrates or true pulmonary edema confirmed. PAST MEDICAL HISTORY: 1. Congestive heart failure. 2. Hypertension. 3. COPD. 4. Hypothyroidism. 5. Anxiety. 6. Depression. 7. Gastroesophageal reflux disease. 8. Chronic kidney disease. 9. Dementia. 10. CVA. 11. Diabetes mellitus. PAST SURGICAL HISTORY: 1. Hysterectomy. 2. Tonsillectomy. 3. Thyroid surgery. 4. Eye surgery. SOCIAL HISTORY: No history of smoking or tobacco or drug use. ADMISSION DIAGNOSES: 1. Hypervolemia and hyponatremia. In light of what appeared to be a little volume overload on her x-ray, we gave her some diuretics and her sodium seemed to improve. Her breathing status seemed to improve. 2. Probable acute diastolic heart failure. 3. Hypertension. 4. Chronic obstructive pulmonary disease. 5. Chronic kidney disease. 6. Suspected pneumonia. HOSPITAL COURSE: We did get a CT of her chest and that was done on 04/29/2019. [facility] like there was some air trapping associated with exacerbation of COPD, stable atelectasis, some fibrosis, and bilateral pleural effusions. We did get Physical Therapy. We continued to make some progress on her strength. Her breathing was much better. Her sodium came up nicely to 138. Blood sugars remained under good control and she wanted to go back to [facility], which we will try and set that up. She does have chronic constipation, so we will set her up to make sure she gets her same bowel regimen. MEDICATIONS: She is on Norvasc 5 mg b.i.d., aspirin 325 mg a day, Lipitor 10 mg at bedtime, vitamin D 2000 units p.o. daily, Klonopin 0.5 mg at bedtime, and then I thinks she takes 0.5 q a.m., Plavix 75 mg daily, ferrous sulfate 325 mg a day, Lasix 40 mg a day, lactulose 30 mL p.o. daily, Synthroid 112 mcg daily. Will stop her antibiotic. She will get Cozaar 100 mg daily, Prilosec 40 mg daily, Toprol XL 50 mg daily, Seroquel 25 mg at bedtime, and Requip 2 mg at bedtime. She would like to get her laxative, which is believe is lactulose and she would like to get it about 5:00 in the morning, so will see if we can get that set up for her. DISCHARGE INSTRUCTIONS: Continue Physical Therapy. cc: Alok Matthew MD
[2019-05-05] MEDS ORDERED: PNEUMOVAX 23 IM ONE (16:21)
[2019-05-05] MEDS ORDERED: PREVNAR 13 IM ONE (16:31)
== END 2019-05-05 17:05 | DRG 291 ==
LOC: SUPCPDRO → ED 14:42 → 3N 22:04
PROVIDERS: ATTEND Emergency Medicine